=== PATIENT | female | born 1955 | race Caucasian/White ===

== ENCOUNTER → 2019-05-21 | Outpatient (CLI) | payer BC, SELFPAY | PROVIDERS: Family Provider Family Medicine; Visit Provider Internal Medicine Medical Oncology | DX: D50.8 Other iron deficiency anemias (principal) | CPT/HCPCS: 96365; J1439 ==

== ENCOUNTER 2019-05-28 13:21 | Outpatient (CLI) | payer BC, SELFPAY | END 2019-05-28 13:22 | disposition home or self-care (01) | LOC: ONCMED 13:26 | PROVIDERS: Family Provider Family Medicine; PCP Family Medicine; Visit Provider Internal Medicine Medical Oncology | DX: D50.9 Iron deficiency anemia, unspecified (principal) | CPT/HCPCS: 96365; J1439 ==

== ENCOUNTER 2019-06-29 11:48 | Outpatient (CLI) | payer BC, SELFPAY ==
[2019-06-29 12:38] LABS: Basophils % 0.3 %; Eosinophils # 0.3 10^3/uL (0.0-0.8); Eosinophils % 4.7 %; Hematocrit 41.5 % (37.0-47.0); Hemoglobin 13.3 g/dL (11.5-15.3); Lymphocytes # 1.1 10^3/uL (0.8-4.8); Lymphocytes % 15.6 %; Mean Corpuscular Volume 96.7 fL (81-99); Mean Platelet Volume 10.4 fL (7.4-10.4); Monocytes # 0.8 10^3/uL (0.2-0.9); Monocytes % 10.8 %; Neutrophils % 68.3 %; Nucleated Red Blood Cells % 0 %; Platelet Count 309 10^3/cmm (130-400); Red Blood Count 4.29 10^6/uL (4.1-5.3); White Blood Count 7.2 10^3/uL (4.0-10.0)
[2019-06-29 12:53] LABS: Ferritin 337 ng/mL (15-150); Iron 105 ug/dL (37-145); Percent Saturation 53.8 % (20-50); Total Iron Binding Capacity 195 mcg/dl; Unsaturated Iron Binding 90 ug/dL (112-347)
== END 2019-06-29 11:49 | disposition home or self-care (01) ==
LOC: ONCMED 11:48
PROVIDERS: Family Provider Family Medicine; PCP Family Medicine; Visit Provider Internal Medicine Medical Oncology
DX: D50.9 Iron deficiency anemia, unspecified (principal); I10 Essential (primary) hypertension; Z79.899 Other long term (current) drug therapy; Z87.11 Personal history of peptic ulcer disease
CPT/HCPCS: 36415; 82728; 83540; 83550; 85025; 99214

== ENCOUNTER 2019-12-23 14:28 | Outpatient (CLI) | payer BC, SELFPAY ==
--- NOTE | 2019-12-23 14:36 | MM_ITS ---
WS: [id number] BILATERAL DIGITAL SCREENING MAMMOGRAPHY WITH CAD CLINICAL INFORMATION: SCREENING HISTORY: Screening mammogram. No current complaints. COMPARISON: TECHNIQUE: Bilateral CC and MLO views. FINDINGS: Scattered fibroglandular densities bilaterally. No suspicious focal mass, asymmetry, calcifications, or architectural distortion. No evidence of malignancy. Lucent centered calcification. MM/[id number] IMPRESSION: BI-RADS: 2-Benign FOLLOW UP: 1 Year Follow-up Recommend return to annual screening mammography.
[2019-12-23 15:00] LABS: Basophils % 0.4 %; Eosinophils # 0.2 10^3/uL (0.0-0.8); Eosinophils % 3.2 %; Hematocrit 37.2 % (37.0-47.0); Hemoglobin 11.6 g/dL (11.5-15.3); Lymphocytes # 1.1 10^3/uL (0.8-4.8); Lymphocytes % 15.2 %; Mean Corpuscular HGB Conc 31.2 g/dL (30.0-36.0); Mean Corpuscular Hemoglobin 30.9 pg (28.0-34.0); Mean Corpuscular Volume 99.2 fL (81-99); Monocytes % 13.4 %; Neutrophils # 5.02 10^3/uL (1.8-7.7); Neutrophils % 67.4 %; Nucleated Red Blood Cells % 0 %; Platelet Count 353 10^3/cmm (130-400); Red Blood Count 3.75 10^6/uL (4.1-5.3); White Blood Count 7.5 10^3/uL (4.0-10.0)
[2019-12-23 15:20] LABS: Alanine Aminotransferase 19 U/L (0-33); Albumin Level 3.7 g/dL (3.5-5.2); Alkaline Phosphatase 59 IU/L (35-105); Blood Urea Nitrogen 10 mg/dL (8-23); Calcium 8.9 mg/dL (8.5-10.5); Carbon Dioxide 29 mmol/L (22-29); Chloride 103 mmol/L (98-107); Ferritin 34 ng/mL (15-150); Globulin 3.3 g/dL (1.3-4.6); Glomerular Filtration Rate 72.2 mL/min (90-130); Glucose 131 mg/dL (65-115); Iron 48 ug/dL (37-145); Osmolality Calculated 288 mOsm/kg (285-295); Sodium 140 mmol/L (136-145); Total Bilirubin 0.2 mg/dL (0.15-1.2)
[2019-12-23 20:39] LABS: Anion Gap 11.9 (5-19); Potassium 3.9 mmol/L (3.5-5.1)
[2019-12-23 20:40] LABS: Aspartate Amino Transferase 23 U/L (0-32); Percent Saturation 18.1 % (20-50); Total Iron Binding Capacity 264 mcg/dl; Unsaturated Iron Binding 216 ug/dL (112-347)
== END 2019-12-23 14:29 | disposition home or self-care (01) ==
LOC: RADSHAW 14:32
PROVIDERS: PCP Family Medicine; Visit Provider Nurse Practitioner
DX: Z12.31 Encounter for screening mammogram for malignant neoplasm of breast (principal); D50.8 Other iron deficiency anemias
CPT/HCPCS: 77067; 80053; 82728; 83540; 83550; 85025

== ENCOUNTER 2019-12-30 14:07 | Outpatient (CLI) | payer BC, SELFPAY ==
--- NOTE | 2019-12-30 19:45 | ONC FU_ITS ---
Dr. Husain Patient Follow-Up Note Patient: Marsha Husain Unit #: [id number]: 1955 Dicatated By: John Husain M.D.Date of Visit:Dec 30, 2019 Onc Med Follow-up/Prog Note Chief Complaint: Anemia. History of Present Illness: This is a 64 year-old woman with recurrent iron deficiency anemia. She had recurrent episodes of anemia dating back to at least 2001. She had required transfusion and she also required parenteral iron replacement, as she had poor tolerance for oral iron supplements. I had seen her initially in May 2017. She reported having a prior episode of a bleeding ulcer requiring cauterization, estimated to have been in 2013. There had otherwise been no documented source for GI blood loss. Her recent evaluation had included colonoscopy in December 2014, EGD in July 2015, and upper endoscopy in February 2016. Her previous treatment had included a course of parenteral iron replacement with 5 infusions of Venofer during November 2016. She had been given parenteral iron on 2016, and she had a transfusion of packed red blood cells on . She had been feeling pretty good generally since that treatment. With her initial evaluation here her hemoglobin was adequate at 12.4 g with her serum iron studies showing transferrin saturation just slightly low at 17.3% and her ferritin in the low-normal range at 56 ng/mL. Her IFOB was negative. Given those findings, I had opted to just monitor with observation/expectant management. However, as of July 2017 her hemoglobin had dropped to 10.5 g, and at that point I did opt to give her parenteral iron replacement with Injectafer. She had a good response, but during subsequent follow-up she required infusions of Injectafer again in April 2018, in August 2018, and in April 2019. Her other medical illnesses include hypertension and peptic ulcer disease. 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 She is a nonsmoker. INTERIM HISTORY: She was last seen here in June 2019. Her CBC at that time showed normal hemoglobin at 13.3 g. Her serum iron studies showed slightly high transferrin saturation at 53.8% and the ferritin was also a little elevated at 337 ng/mL. She continued on observation/expectant management. She is seen now for a follow-up visit. Subsequent to her visit in June she had developed significant joint pain, determined to be rheumatoid arthritis. She is now on treatment with methotrexate. She also was offered prednisone, but declined. She has been getting steroid injections about every 1 to 2 months. She is still having a lot of joint pain, mainly in her hands and feet. 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 Her ECOG score is 0. She has good appetite. She has not had fever. She does report having some hot flashes and sweating, but some of that she just attributes to the hot weather. She does not complain of shortness of breath, cough, or chest pain. She currently has no GI or complaints. She recently has had some headache. She occasionally has dizziness. She has no focal neurologic symptoms. Medications: Acetaminophen 2 Tablet (of 650 mg) Oral q 8 hours PRN, Cephalexin 1 (500 mg) Capsule Oral daily, Folic Acid 1 Tablet Oral daily, Losartan Potassium-HCTZ 1 (50-12.5 mg) Tablet Oral daily, Methotrexate Sodium 4 Tablet Oral q 7 days, Multivitamin 1 Tablet Oral daily, Omeprazole 1 (20 mg) Capsule Delayed Release Oral daily, Vitamin C 1 (1000 mg) Tablet Oral daily Allergies: No Known Allergies. Review of Systems: Constitutional - Her energy has been okay. She has normal activity without restrictions. Her appetite is good and weight is up a few pounds from last visit. No fever or night sweats. She has hot flashes. ECOG score is 0, ENMT - No sinus congestion/drainage. No mouth sores. No sore throat or difficulty swallowing, Hematologic/Lymphatic - No abnormal bruising or bleeding, Respiratory - No shortness of breath. No cough. No pleuritic pain or hemoptysis, Cardiovascular - No angina pain. No palpitations, Gastrointestinal - No nausea or vomiting. No heartburn or acid reflux. No diarrhea or constipation. No blood in the stool or black stools, Genitourinary (F) - No dysuria or hematuria. No urinary frequency. No urgency or incontinence, Musculoskeletal - She has generalized joint pain from rheumatoid arthritis, Integumentary - She has chronic swelling in her right leg following an episode of celluliitis, Neurologic - She recently had some headache. She occasionally has dizziness. No numbness or tingling. No other focal neurologic symptoms, Psychiatric - No anxiety or depression. No insomnia. Vital Signs: Performed on Dec 30, 2019 14:19 Height - 66.00 in Weight - 217.0 lbs (HIGH) BSA - 2.07 sq.m BMI - 35.02 (HIGH) Temperature - 97.6 F (LOW) Pulse - 60 /min Respiration - 20 /min BP - 162/84 mm(hg) (HIGH) O2 Sat - 98 % Pain - 0 Physical Examination: Constitutional - She looks pretty good generally, Eyes - Sclerae nonicteric. Conjunctivae clear, ENMT - No lesions noted in the oral cavity, Hematologic/Lymphatic - No cervical, clavicular, or axillary adenopathy, Respiratory - Lungs are clear with good air movement bilaterally, Cardiovascular - Heart rhythm is regular. There is a II/ systolic murmur. There is no gallop or rub noted, Abdomen - Soft. Liver and spleen are not enlarged. There is no abdominal mass or ascites noted and there is no inguinal adenopathy, Extremities - There is mild chronic swelling of the right leg. There is an area of mild erythema, Neurologic - No focal neurologic deficits noted. Lab/Imaging: Her CBC shows hemoglobin 11.6 g, white blood cell count 7500, and platelet count 353,000. Comprehensive metabolic profile is unremarkable. Her serum iron studies show transferrin saturation low at 18% with ferritin 34 ng/mL. Impression: 1. Patient with recurrent episodes of iron deficiency anemia. These have responded to parenteral iron replacement, but just temporarily. A specific cause has not been determined. 2. She has a prior history of bleeding ulcer, but her most recent GI evaluation showed no documented source of GI blood loss. Her other medical illnesses include: 3. Hypertension. 4. 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 On her follow-up laboratory studies in July 2017 she was mildly anemic again, and her transferrin saturation and ferritin were consistent with iron deficiency. She was given parenteral iron replacement with a single infusion of Injectafer. She had a good clinical response. During subsequent follow-up she required further parenteral iron replacement with Injectafer in April 2018, in August 2018, and in April 2019. On all occasions she has had evidence of response. However, she has now become mildly anemic again with transferrin saturation and ferritin consistent with iron deficiency. Since her visit in June 2019 she also has been diagnosed with rheumatoid arthritis, for which she currently is on treatment with methotrexate together with steroid injections every 1 to 2 months. Plan: She will be receive parenteral iron replacement with Injectafer 750 mg by IV infusion, subject to verification of insurance coverage. I will then monitor blood counts and serum iron studies every 3 months. She will be given further parenteral iron replacement as indicated. In the meantime, she will continue her regular follow-up with Dr. Reeves. Signed By: John Husain M.D. <<Signature on File>>
== END 2019-12-30 14:08 | disposition home or self-care (01) ==
LOC: ONCMED 14:09
PROVIDERS: PCP Family Medicine; Visit Provider Internal Medicine Medical Oncology
DX: D50.9 Iron deficiency anemia, unspecified (principal); I10 Essential (primary) hypertension; L08.9 Local infection of the skin and subcutaneous tissue, unspecified; Z79.2 Long term (current) use of antibiotics
CPT/HCPCS: 99214

== ENCOUNTER 2019-12-31 13:05 | Outpatient (CLI) | payer BC, SELFPAY ==
[2019-12-31] MEDS: ferric carboxy (IVPB) 750 MG in sodium chloride 0.9% (100 ml) 100 ML 460 MG IV (14:26)
== END 2019-12-31 13:06 | disposition home or self-care (01) ==
LOC: ONCMED 13:08
PROVIDERS: PCP Family Medicine; Visit Provider Internal Medicine Medical Oncology
DX: D50.9 Iron deficiency anemia, unspecified (principal)
CPT/HCPCS: 96365; J1439

== ENCOUNTER 2020-03-08 13:10 | Outpatient (CLI) | payer BC, SELFPAY ==
[2020-03-08 13:47] LABS: Basophils % 0.3 %; Eosinophils # 0.2 10^3/uL (0.0-0.8); Eosinophils % 2.8 %; Hematocrit 38.2 % (37.0-47.0); Hemoglobin 12.2 g/dL (11.5-15.3); Lymphocytes # 0.9 10^3/uL (0.8-4.8); Lymphocytes % 14.2 %; Mean Corpuscular HGB Conc 31.9 g/dL (30.0-36.0); Mean Corpuscular Hemoglobin 33.2 pg (28.0-34.0); Mean Corpuscular Volume 103.8 fL (81-99); Monocytes # 0.7 10^3/uL (0.2-0.9); Monocytes % 12.1 %; Neutrophils # 4.28 10^3/uL (1.8-7.7); Neutrophils % 70.1 %; Nucleated Red Blood Cells % 0 %; Platelet Count 339 10^3/cmm (130-400); Red Blood Count 3.68 10^6/uL (4.1-5.3); Red Cell Distribution Width 13.7 % (12.1-15.1); White Blood Count 6.1 10^3/uL (4.0-10.0)
[2020-03-08 14:11] LABS: Alanine Aminotransferase 24 U/L (0-33); Alkaline Phosphatase 64 IU/L (35-105); Anion Gap 11.4 (5-19); Aspartate Amino Transferase 21 U/L (0-32); Blood Urea Nitrogen 14 mg/dL (8-23); Calcium 9.1 mg/dL (8.5-10.5); Carbon Dioxide 29 mmol/L (22-29); Chloride 101 mmol/L (98-107); Ferritin 68 ng/mL (15-150); Globulin 2.8 g/dL (1.3-4.6); Glomerular Filtration Rate 100.6 mL/min (90-130); Glucose 145 mg/dL (65-115); Iron 39 ug/dL (37-145); Osmolality Calculated 289 mOsm/kg (285-295); Percent Saturation 15.7 % (20-50); Potassium 3.4 mmol/L (3.5-5.1); Sodium 138 mmol/L (136-145); Total Bilirubin 0.2 mg/dL (0.15-1.2); Total Iron Binding Capacity 247 mcg/dl; Total Protein 6.8 g/dL (6.6-8.7); Unsaturated Iron Binding 208 ug/dL (112-347)
== END 2020-03-08 13:11 | disposition home or self-care (01) ==
LOC: ONCMED 13:12
PROVIDERS: Nurse Practitioner; PCP Family Medicine; Visit Provider Internal Medicine Medical Oncology
DX: D50.8 Other iron deficiency anemias (principal)
CPT/HCPCS: 36415; 80053; 82728; 83540; 83550; 85025

== ENCOUNTER 2020-04-04 12:00 | Outpatient (CLI) | payer MEDICARE, BC, SELFPAY ==
[2020-04-04 12:49] LABS: Basophils % 0.8 %; Eosinophils # 0.5 10^3/uL (0.0-0.8); Eosinophils % 9.4 %; Hemoglobin 9.2 g/dL (11.5-15.3); Lymphocytes # 0.9 10^3/uL (0.8-4.8); Lymphocytes % 17.6 %; Mean Corpuscular HGB Conc 30.7 g/dL (30.0-36.0); Mean Corpuscular Hemoglobin 32.2 pg (28.0-34.0); Mean Corpuscular Volume 104.9 fL (81-99); Monocytes # 0.7 10^3/uL (0.2-0.9); Monocytes % 12.6 %; Neutrophils % 59.2 %; Nucleated Red Blood Cells % 0 %; Platelet Count 423 10^3/cmm (130-400); Red Blood Count 2.86 10^6/uL (4.1-5.3); Red Cell Distribution Width 13.3 % (12.1-15.1); White Blood Count 5.2 10^3/uL (4.0-10.0)
[2020-04-04 13:49] LABS: Ferritin 25 ng/mL (15-150); Iron 20 ug/dL (37-145); Percent Saturation 7.4 % (20-50); Total Iron Binding Capacity 269 mcg/dl; Unsaturated Iron Binding 249 ug/dL (112-347)
== END 2020-04-04 12:01 | disposition home or self-care (01) ==
PROVIDERS: PCP Family Medicine; Visit Provider Internal Medicine Medical Oncology
DX: D50.9 Iron deficiency anemia, unspecified (principal)
CPT/HCPCS: 36415; 82728; 83540; 83550; 85025

== ENCOUNTER 2020-04-19 12:25 | Outpatient (CLI) | payer MEDICARE, BC, SELFPAY ==
[2020-04-19 13:19] LABS: Basophils % 0.2 %; Eosinophils # 0.6 10^3/uL (0.0-0.8); Eosinophils % 5.7 %; Hematocrit 29.7 % (37.0-47.0); Hemoglobin 8.9 g/dL (11.5-15.3); Lymphocytes # 0.9 10^3/uL (0.8-4.8); Lymphocytes % 8.8 %; Mean Corpuscular Hemoglobin 30.9 pg (28.0-34.0); Mean Corpuscular Volume 103.1 fL (81-99); Mean Platelet Volume 9.9 fL (7.4-10.4); Monocytes % 10.3 %; Neutrophils # 7.52 10^3/uL (1.8-7.7); Neutrophils % 74.7 %; Nucleated Red Blood Cells % 0 %; Platelet Count 479 10^3/cmm (130-400); Red Blood Count 2.88 10^6/uL (4.1-5.3); Red Cell Distribution Width 14.4 % (12.1-15.1); White Blood Count 10.1 10^3/uL (4.0-10.0)
[2020-04-19 13:37] LABS: Alanine Aminotransferase 15 U/L (0-33); Albumin Level 3.7 g/dL (3.5-5.2); Alkaline Phosphatase 66 IU/L (35-105); Anion Gap 10.6 (5-19); Aspartate Amino Transferase 15 U/L (0-32); Blood Urea Nitrogen 14 mg/dL (8-23); Calcium 9.1 mg/dL (8.5-10.5); Carbon Dioxide 31 mmol/L (22-29); Chloride 103 mmol/L (98-107); Ferritin 9 ng/mL (15-150); Globulin 2.5 g/dL (1.3-4.6); Glomerular Filtration Rate 100.3 mL/min (90-130); Glucose 120 mg/dL (65-115); Iron 16 ug/dL (37-145); Osmolality Calculated 294 mOsm/kg (285-295); Percent Saturation 4.9 % (20-50); Potassium 3.6 mmol/L (3.5-5.1); Sodium 141 mmol/L (136-145); Total Bilirubin 0.2 mg/dL (0.15-1.2); Total Iron Binding Capacity 322 mcg/dl; Total Protein 6.2 g/dL (6.6-8.7); Unsaturated Iron Binding 306 ug/dL (112-347)
[2020-04-19] MEDS: ferric carboxy (IVPB) 750 MG in sodium chloride 0.9% (100 ml) 100 ML 345 MG IV (15:15)
== END 2020-04-19 12:26 | disposition home or self-care (01) ==
LOC: ONCMED 12:27
PROVIDERS: PCP Family Medicine; Visit Provider Internal Medicine Medical Oncology
DX: D50.9 Iron deficiency anemia, unspecified (principal)
CPT/HCPCS: 36415; 80053; 82728; 83540; 83550; 85025; 96365; J1439

== ENCOUNTER 2020-04-26 06:15 | Outpatient (CLI) | payer MEDICARE, BC, SELFPAY ==
[2020-04-26] MEDS: ferric carboxy (IVPB) 750 MG in sodium chloride 0.9% (100 ml) 100 ML 345 MG IV (12:21)
== END 2020-04-26 06:16 | disposition home or self-care (01) ==
LOC: ONCMED 06:17
PROVIDERS: PCP Family Medicine; Visit Provider Internal Medicine Medical Oncology
DX: D50.8 Other iron deficiency anemias (principal)
CPT/HCPCS: 96365; J1439

== ENCOUNTER 2020-06-01 09:32 | Outpatient (CLI) | payer MEDICARE, BC, SELFPAY ==
[2020-06-01 10:06] LABS: Basophils % 0.5 %; Eosinophils # 0.6 10^3/uL (0.0-0.8); Eosinophils % 8.9 %; Hematocrit 36.2 % (37.0-47.0); Hemoglobin 10.9 g/dL (11.5-15.3); Lymphocytes # 0.8 10^3/uL (0.8-4.8); Lymphocytes % 11.8 %; Mean Corpuscular HGB Conc 30.1 g/dL (30.0-36.0); Mean Corpuscular Hemoglobin 31.3 pg (28.0-34.0); Mean Platelet Volume 9.9 fL (7.4-10.4); Monocytes # 0.9 10^3/uL (0.2-0.9); Monocytes % 13.8 %; Neutrophils # 4.21 10^3/uL (1.8-7.7); Neutrophils % 64.8 %; Nucleated Red Blood Cells % 0 %; Platelet Count 476 10^3/cmm (130-400); Red Blood Count 3.48 10^6/uL (4.1-5.3); Red Cell Distribution Width 14.6 % (12.1-15.1); White Blood Count 6.5 10^3/uL (4.0-10.0)
[2020-06-01 10:28] LABS: Alanine Aminotransferase 12 U/L (0-33); Albumin Level 3.9 g/dL (3.5-5.2); Alkaline Phosphatase 76 IU/L (35-105); Anion Gap 11.9 (5-19); Aspartate Amino Transferase 14 U/L (0-32); Blood Urea Nitrogen 9 mg/dL (8-23); Calcium 9.6 mg/dL (8.5-10.5); Carbon Dioxide 32 mmol/L (22-29); Chloride 101 mmol/L (98-107); Ferritin 81 ng/mL (15-150); Glucose 103 mg/dL (65-115); Iron 29 ug/dL (37-145); Osmolality Calculated 291 mOsm/kg (285-295); Percent Saturation 11.5 % (20-50); Potassium 3.9 mmol/L (3.5-5.1); Sodium 141 mmol/L (136-145); Total Bilirubin 0.2 mg/dL (0.15-1.2); Total Iron Binding Capacity 251 mcg/dl; Total Protein 6.9 g/dL (6.6-8.7); Unsaturated Iron Binding 222 ug/dL (112-347)
[2020-06-01] MEDS: ferric carboxy (IVPB) 750 MG in sodium chloride 0.9% (100 ml) 100 ML 460 MG IV (11:20)
[2020-06-01 12:59] LABS: Vitamin B12 757 pg/mL (232-1245)
--- NOTE | 2020-06-04 17:44 | ONC FU_ITS ---
Dr. Husain Patient Follow-Up Note Patient: Marsha Husain Unit #: [id number]: 1955 Dicatated By: John Husain M.D.Date of Visit:Jun 01, 2020 Onc Med Follow-up/Prog Note Chief Complaint: Anemia. History of Present Illness: This is a 65 year-old woman with recurrent iron deficiency anemia. She had recurrent episodes of anemia dating back to at least 2001. She had required transfusion and she also required parenteral iron replacement, as she had poor tolerance for oral iron supplements. I had seen her initially in May 2017. She reported having a prior episode of a bleeding ulcer requiring cauterization, estimated to have been in 2013. There had otherwise been no documented source for GI blood loss. Her recent evaluation had included colonoscopy in December 2014, EGD in July 2015, and upper endoscopy in February 2016. Her previous treatment had included a course of parenteral iron replacement with 5 infusions of Venofer during November 2016. She had been given parenteral iron on 2016, and she had a transfusion of packed red blood cells on . She had been feeling pretty good generally since that treatment. With her initial evaluation here her hemoglobin was adequate at 12.4 g with her serum iron studies showing transferrin saturation just slightly low at 17.3% and her ferritin in the low-normal range at 56 ng/mL. Her IFOB was negative. Given those findings, I had opted to just monitor with observation/expectant management. However, as of July 2017 her hemoglobin had dropped to 10.5 g, and at that point I did opt to give her parenteral iron replacement with Injectafer. She had a good response, but during subsequent follow-up she required infusions of Injectafer again in April 2018, in August 2018, and in April 2019. She was seen again in June 2019. Her CBC at that time showed normal hemoglobin at 13.3 g. Her serum iron studies showed slightly high transferrin saturation at 53.8% and the ferritin was also a little elevated at 337 ng/mL. She continued on observation/expectant management. Subsequent to that visit in June she had developed significant joint pain, determined to be rheumatoid arthritis. She was started on treatment with methotrexate. Her other medical illnesses include hypertension and peptic ulcer disease. 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 She is a nonsmoker. INTERIM HISTORY: March 2020 her hemoglobin had decreased to 8.9 g with transferrin saturation down to 4.9% and ferritin low at 9 ng/mL. With those findings she was given additional parenteral iron replacement with 2 infusions of Injectafer. She is seen for a follow-up visit. She says she definitely feels better following the parenteral iron infusions in March. She still has some dizziness, but her activity tolerance is much better and her activity is pretty much back to normal. Her appetite has been okay. She does not have fever or night sweats. She has a little bit of cough. She does not complain of shortness of breath or chest pain. She has no GI or complaints. She has joint pain with the rheumatoid arthritis, but it has improved somewhat on the methotrexate. She has no focal neurologic symptoms. Medications: Acetaminophen 2 Tablet (of 650 mg) Oral q 8 hours PRN, Cephalexin 1 (500 mg) Capsule Oral daily, Folic Acid 1 Tablet Oral daily, Losartan Potassium-HCTZ 1 (50-12.5 mg) Tablet Oral daily, Methotrexate Sodium 4 Tablet Oral q 7 days, Multivitamin 1 Tablet Oral daily, Omeprazole 1 (20 mg) Capsule Delayed Release Oral daily, Vitamin C 1 (1000 mg) Tablet Oral daily Allergies: No Known Allergies. Vital Signs: Performed on Jun 01, 2020 10:43 Height - 66.00 in Weight - 219.8 lbs (HIGH) BSA - 2.08 sq.m BMI - 35.48 (HIGH) Temperature - 97 F (LOW) Pulse - 75 /min Respiration - 17 /min BP - 199/88 mm(hg) (HIGH) O2 Sat - 97 % Pain - 0 Physical Examination: Constitutional - She looks pretty good generally, Eyes - Sclerae nonicteric. Conjunctivae clear, ENMT - No lesions noted in the oral cavity, Hematologic/Lymphatic - No cervical, clavicular, or axillary adenopathy, Respiratory - Lungs are clear with good air movement bilaterally, Cardiovascular - Heart rhythm is regular. There is a II/ systolic murmur. There is no gallop or rub noted, Abdomen - Soft. Liver and spleen are not enlarged. There is no abdominal mass or ascites noted and there is no inguinal adenopathy, Extremities - There is mild swelling of the right leg, which is chronic, Neurologic - No focal neurologic deficits noted. Lab/Imaging: Test performed on Jun 01, 2020 09:50 Ferritin 81 ng/mL Iron 29 mcg/dL Sodium 141 mmol/L Iron Binding Capacity (TIBC) 251 mcg/dl Potassium 3.9 mmol/L % Iron Saturation 11.5 % Chloride 101 mmol/L CO2 32 mmol/L UIBC 222 mcg/dL Anion Gap 11.9 BUN 9 mg/dL Creatinine 0.7 mg/dL Cr Clearance (Est) 126.11 mL/min eGFR 84.0 mL/min Glucose 103 mg/dL Osmolality - Calculated 291 mOsm/kg Calcium 9.6 mg/dL Protein, Total 6.9 g/dL Albumin 3.9 g/dL Globulin 3.0 g/dL Bilirubin, Total 0.2 mg/dL ALT (SGPT) 12 U/L AST (SGOT) 14 U/L Alkaline Phosphatase 76 IU/L WBC 6.5 10 3/uL RBC 3.48 10 6/uL HGB 10.9 g/dL HCT 36.2 % MCV 104.0 fL MCH 31.3 pg MCHC 30.1 g/dL RDW 14.6 % Platelet Count 476 10 3/cmm MPV 9.9 fL Neutrophils 4.21 10 3/uL Lymphocytes 0.8 10 3/uL Monocytes 0.9 10 3/uL Eosinophils 0.6 10 3/uL Basophils 0.0 10 3/uL Neutrophil % 64.8 % Lymphocyte % 11.8 % Monocyte % 13.8 % Eosinophil % 8.9 % Basophils % 0.5 % NRBC % 0 % Test performed on Jun 01, 2020 03:20 Vitamin B12 757 pg/mL Historic Problem List: 1. Recurring episodes of iron deficiency anemia. A specific cause has not been determined, but the anemia has been responsive to parenteral iron replacement. 2. She has a prior history of bleeding ulcer, but her most recent GI evaluation showed no documented source of GI blood loss. 3. She developed significant joint pain, determined to be due to rheumatoid arthritis, for which she is on treatment with methotrexate. 4. Hypertension. 5. 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 Problems Addressed with this Encounter and Plan: Recurrent episodes of iron deficiency anemia which have been responsive to parenteral iron replacement. She was again given 2 infusions of Injectafer in March 2020 with her hemoglobin decreased to 8.9 g with transferrin saturation 4% and with serum ferritin low at 11 ng/mL. She has had a good response, but she is still mildly anemic and her transferrin saturation is still consistent with iron deficiency. As such, she will be given 1 additional infusion of Injectafer today. She will require close monitoring of her blood counts and serum iron studies. Repeat laboratory studies will be scheduled in 1 month and again in 3 months. I will see her again in 6 months, or sooner as needed. Signed By: John Husain M.D. <<Signature on File>>
== END 2020-06-01 09:33 | disposition home or self-care (01) ==
LOC: ONCMED 09:35
PROVIDERS: PCP Family Medicine; Visit Provider Internal Medicine Medical Oncology
DX: D50.9 Iron deficiency anemia, unspecified (principal); M06.9 Rheumatoid arthritis, unspecified; I10 Essential (primary) hypertension; M79.604 Pain in right leg; L00 Staphylococcal scalded skin syndrome; Z79.2 Long term (current) use of antibiotics
CPT/HCPCS: 80053; 82607; 82728; 83540; 83550; 85025; 96365; 99214; J1439

== ENCOUNTER 2020-07-05 14:10 | Outpatient (CLI) | payer MEDICARE, BC, SELFPAY ==
[2020-07-05 15:02] LABS: Basophils % 0.4 %; Eosinophils # 0.4 10^3/uL (0.0-0.8); Eosinophils % 7.1 %; Hematocrit 33.7 % (37.0-47.0); Hemoglobin 10.6 g/dL (11.5-15.3); Lymphocytes # 0.9 10^3/uL (0.8-4.8); Lymphocytes % 17.7 %; Mean Corpuscular HGB Conc 31.5 g/dL (30.0-36.0); Mean Corpuscular Hemoglobin 31.1 pg (28.0-34.0); Mean Corpuscular Volume 98.8 fL (81-99); Mean Platelet Volume 10.4 fL (7.4-10.4); Monocytes # 0.7 10^3/uL (0.2-0.9); Monocytes % 14.1 %; Neutrophils # 2.99 10^3/uL (1.8-7.7); Neutrophils % 60.3 %; Nucleated Red Blood Cells % 0 %; Platelet Count 316 10^3/cmm (130-400); Red Blood Count 3.41 10^6/uL (4.1-5.3); Red Cell Distribution Width 14.1 % (12.1-15.1)
[2020-07-05 15:49] LABS: Ferritin 172 ng/mL (15-150); Iron 39 ug/dL (37-145); Percent Saturation 18.8 % (20-50); Total Iron Binding Capacity 207 mcg/dl; Unsaturated Iron Binding 168 ug/dL (112-347)
== END 2020-07-05 14:11 | disposition home or self-care (01) ==
LOC: ONCMED 14:17
PROVIDERS: PCP Family Medicine; Visit Provider Internal Medicine Medical Oncology
DX: D50.9 Iron deficiency anemia, unspecified (principal)
CPT/HCPCS: 36415; 82728; 83540; 83550; 85025

== ENCOUNTER 2020-08-17 13:25 | Outpatient (CLI) | payer MEDICARE, BC, SELFPAY ==
[2020-08-17 14:57] LABS: Basophils % 0.4 %; Eosinophils # 0.8 10^3/uL (0.0-0.8); Eosinophils % 8.5 %; Hematocrit 38.4 % (37.0-47.0); Hemoglobin 11.9 g/dL (11.5-15.3); Lymphocytes # 0.7 10^3/uL (0.8-4.8); Lymphocytes % 7.2 %; Mean Corpuscular Volume 93.7 fL (81-99); Mean Platelet Volume 10.4 fL (7.4-10.4); Monocytes # 1.3 10^3/uL (0.2-0.9); Monocytes % 14.2 %; Neutrophils # 6.43 10^3/uL (1.8-7.7); Neutrophils % 69.5 %; Nucleated Red Blood Cells % 0 %; Platelet Count 395 10^3/cmm (130-400); Red Cell Distribution Width 15.1 % (12.1-15.1); White Blood Count 9.3 10^3/uL (4.0-10.0)
[2020-08-17 15:42] LABS: Ferritin 101 ng/mL (15-150); Iron 21 ug/dL (37-145); Percent Saturation 9.2 % (20-50); Total Iron Binding Capacity 227 mcg/dl; Unsaturated Iron Binding 206 ug/dL (112-347)
== END 2020-08-17 13:26 | disposition home or self-care (01) ==
LOC: ONCMED 13:28
PROVIDERS: PCP Family Medicine; Visit Provider Internal Medicine Medical Oncology
DX: D64.9 Anemia, unspecified (principal)
CPT/HCPCS: 36415; 82728; 83540; 83550; 85025

== ENCOUNTER 2020-08-18 08:19 | Outpatient (CLI) | payer MEDICARE, BC, SELFPAY ==
[2020-08-18] MEDS: ferric carboxy (IVPB) 750 MG in sodium chloride 0.9% (100 ml) 100 ML 345 MG IV (13:50)
[2020-08-18] MEDS: sodium chloride 0.9% (100 ml) 100 ML 400 ML (13:50)
== END 2020-08-18 08:20 | disposition home or self-care (01) ==
LOC: ONCMED 08:21
PROVIDERS: PCP Family Medicine; Visit Provider Internal Medicine Medical Oncology
DX: D50.8 Other iron deficiency anemias (principal)
CPT/HCPCS: 96365; J1439

== ENCOUNTER 2020-08-24 08:22 | Outpatient (CLI) | payer MEDICARE, BC, SELFPAY ==
[2020-08-24] MEDS: ferric carboxy (IVPB) 750 MG in sodium chloride 0.9% (100 ml) 100 ML 460 MG IV (15:27)
== END 2020-08-24 08:23 | disposition home or self-care (01) ==
LOC: ONCMED 08:25
PROVIDERS: PCP Family Medicine; Visit Provider Internal Medicine Medical Oncology
DX: D50.9 Iron deficiency anemia, unspecified (principal)
CPT/HCPCS: 96365; J1439

== ENCOUNTER 2020-09-26 13:43 | Outpatient (CLI) | payer MEDICARE, BC, SELFPAY ==
[2020-09-26 14:24] LABS: Basophils % 0.5 %; Eosinophils # 0.4 10^3/uL (0.0-0.8); Eosinophils % 6.4 %; Hematocrit 35.9 % (37.0-47.0); Hemoglobin 11.1 g/dL (11.5-15.3); Lymphocytes # 0.8 10^3/uL (0.8-4.8); Lymphocytes % 13.9 %; Mean Corpuscular HGB Conc 30.9 g/dL (30.0-36.0); Mean Corpuscular Hemoglobin 31.9 pg (28.0-34.0); Mean Corpuscular Volume 103.2 fL (81-99); Mean Platelet Volume 10.3 fL (7.4-10.4); Monocytes % 18.5 %; Neutrophils # 3.28 10^3/uL (1.8-7.7); Nucleated Red Blood Cells % 0 %; Platelet Count 461 10^3/cmm (130-400); Red Blood Count 3.48 10^6/uL (4.1-5.3); Red Cell Distribution Width 18.8 % (12.1-15.1); White Blood Count 5.5 10^3/uL (4.0-10.0)
[2020-09-26 14:54] LABS: Ferritin 366 ng/mL (15-150); Iron 44 ug/dL (37-145); Percent Saturation 20.4 % (20-50); Total Iron Binding Capacity 215 mcg/dl; Unsaturated Iron Binding 171 ug/dL (112-347)
--- NOTE | 2020-10-03 07:26 | ONC FU_ITS ---
Dr. Husain Patient Follow-Up Note Patient: Marsha Husain Unit #: [id number]: 1955 Dicatated By: John Husain M.D.Date of Visit:September 26, 2020 Onc Med Follow-up/Prog Note Chief Complaint: Anemia. History of Present Illness: This is a 65 year-old woman with recurrent iron deficiency anemia. She had recurrent episodes of anemia dating back to at least 2001. She had required transfusion and she also required parenteral iron replacement, as she had poor tolerance for oral iron supplements. I had seen her initially in May 2017. She reported having a prior episode of a bleeding ulcer requiring cauterization, estimated to have been in 2013. There had otherwise been no documented source for GI blood loss. Her recent evaluation had included colonoscopy in December 2014, EGD in July 2015, and upper endoscopy in February 2016. Her previous treatment had included a course of parenteral iron replacement with 5 infusions of Venofer during November 2016. She had been given parenteral iron on 2016, and she had a transfusion of packed red blood cells on . She had been feeling pretty good generally since that treatment. With her initial evaluation here her hemoglobin was adequate at 12.4 g with her serum iron studies showing transferrin saturation just slightly low at 17.3% and her ferritin in the low-normal range at 56 ng/mL. Her IFOB was negative. Given those findings, I had opted to just monitor with observation/expectant management. However, as of July 2017 her hemoglobin had dropped to 10.5 g, and at that point I did opt to give her parenteral iron replacement with Injectafer. She had a good response, but during subsequent follow-up she required infusions of Injectafer again in April 2018, in August 2018, and in April 2019. She was seen again in June 2019. Her CBC at that time showed normal hemoglobin at 13.3 g. Her serum iron studies showed slightly high transferrin saturation at 53.8% and the ferritin was also a little elevated at 337 ng/mL. She continued on observation/expectant management. Subsequent to that visit in June she had developed significant joint pain, determined to be rheumatoid arthritis. She was started on treatment with methotrexate. Her other medical illnesses include hypertension and peptic ulcer disease. 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 She is a nonsmoker. INTERIM HISTORY: In March 2020 her hemoglobin had decreased to 8.9 g with transferrin saturation down to 4.9% and ferritin low at 9 ng/mL. With those findings she was given additional parenteral iron replacement with Injectafer. She had a good response. However, as of July 2020 she remained mildly anemic with transferrin saturation low at 9%, and at that point I did opt to give her 2 additional infusions of Injectafer. She is seen for a follow-up visit. She indicates that 3 weeks ago she spent 6 days in the hospital with bronchial pneumonia. She says she was very very weak. Since then she has been getting better gradually, but she still gets tired. She is working, though. Her ECOG score is 1. Her appetite is okay now. She does not have fever or night sweats. She does not complain of cough. She still has some shortness of breath with activity. She has very little chest pain. She has no GI or complaints. She is on methotrexate/folic acid for rheumatoid arthritis. Her joints are still sometimes sore. She has had some headaches and she also has dysequilibrium. She has no numbness/paresthesia or other focal neurologic symptoms. Medications: Acetaminophen 2 Tablet (of 650 mg) Oral q 8 hours PRN, Cephalexin 1 (500 mg) Capsule Oral daily, Folic Acid 1 Tablet Oral daily, Losartan Potassium-HCTZ 1 (50-12.5 mg) Tablet Oral daily, Methotrexate Sodium 4 Tablet Oral q 7 days, Multivitamin 1 Tablet Oral daily, Omeprazole 1 (20 mg) Capsule Delayed Release Oral daily, Vitamin C 1 (1000 mg) Tablet Oral daily Allergies: No Known Allergies. Vital Signs: Performed on September 26, 2020 15:37 Height - 66.00 in Weight - 217.8 lbs (LOW) BSA - 2.07 sq.m BMI - 35.15 (HIGH) Temperature - 97.2 F (LOW) Pulse - 80 /min Respiration - 18 /min BP - 156/72 mm(hg) (HIGH) O2 Sat - 94 % (LOW) Pain - 0 Fatigue - 5 Physical Examination: Constitutional - She looks pretty good generally, Eyes - Sclerae nonicteric. Conjunctivae clear, ENMT - No lesions noted in the oral cavity, Hematologic/Lymphatic - No cervical, clavicular, or axillary adenopathy, Respiratory - Lungs are clear with good air movement bilaterally, Cardiovascular - Heart rhythm is regular. There is a II/ systolic murmur. There is no gallop or rub noted, Abdomen - Soft. Liver and spleen are not enlarged. There is no abdominal mass or ascites noted and there is no inguinal adenopathy, Extremities - There is mild swelling and erythemia of the right leg. There are scattered purpuric lesions on the arms, Neurologic - No focal neurologic deficits noted. Lab/Imaging: Test performed on September 26, 2020 14:00 Ferritin 366 ng/mL Iron 44 mcg/dL Iron Binding Capacity (TIBC) 215 mcg/dl % Iron Saturation 20.4 % UIBC 171 mcg/dL WBC 5.5 10 3/uL RBC 3.48 10 6/uL HGB 11.1 g/dL HCT 35.9 % MCV 103.2 fL MCH 31.9 pg MCHC 30.9 g/dL RDW 18.8 % Platelet Count 461 10 3/cmm MPV 10.3 fL Neutrophils 3.28 10 3/uL Lymphocytes 0.8 10 3/uL Monocytes 1.0 10 3/uL Eosinophils 0.4 10 3/uL Basophils 0.0 10 3/uL Neutrophil % 60.0 % Lymphocyte % 13.9 % Monocyte % 18.5 % Eosinophil % 6.4 % Basophils % 0.5 % NRBC % 0 % Problem List: 1. Iron deficiency anemia. A specific cause has not been determined, but the anemia has been responsive to parenteral iron replacement. 2. She has a prior history of bleeding ulcer, but her most recent GI evaluation showed no documented source of GI blood loss. 3. She developed significant joint pain, determined to be due to rheumatoid arthritis, for which she is on treatment with methotrexate. 4. Hypertension. 5. 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 Problems Addressed with this Encounter and Plan: Patient with recurrent episodes of iron deficiency anemia which have been responsive to parenteral iron replacement. She was again given 2 infusions of Injectafer in March 2020 with her hemoglobin decreased to 8.9 g with transferrin saturation 4% and with serum ferritin low at 11 ng/mL. She had a good response, but she remained mildly anemic. As of July 2020 her serum iron studies show transferrin saturation back down to 9%, and at that point she did receive 2 additional infusions of Injectafer. Her current CBC continues to show mild anemia though with her transferrin saturation up to 20% and with ferritin now up to 366 ng/mL. As such, it does appear that there are additional contributing factors to her anemia. Likely possibilities would include her recent acute illness, her underlying rheumatoid arthritis, or the methotrexate therapy. At least for now, she will just be followed expectantly. Her blood counts will be monitored monthly. I will see her again in 3 months, or sooner as needed. Signed By: John Husain M.D. <<Signature on File>>
== END 2020-09-26 13:44 | disposition home or self-care (01) ==
LOC: ONCMED 13:45
PROVIDERS: PCP Family Medicine; Visit Provider Internal Medicine Medical Oncology
DX: D50.9 Iron deficiency anemia, unspecified (principal); M06.9 Rheumatoid arthritis, unspecified; I10 Essential (primary) hypertension; Z79.2 Long term (current) use of antibiotics; Z79.52 Long term (current) use of systemic steroids; Z79.899 Other long term (current) drug therapy
CPT/HCPCS: 36415; 82728; 83540; 83550; 85025; 99214

== ENCOUNTER 2020-11-09 14:36 | Outpatient (CLI) | payer MEDICARE, BC, SELFPAY ==
[2020-11-09] MEDS: ferric carboxy (IVPB) 750 MG in sodium chloride 0.9% (100 ml) 100 ML 460 MG IV (15:15)
== END 2020-11-09 14:37 | disposition home or self-care (01) ==
LOC: ONCMED 14:41
PROVIDERS: PCP Family Medicine; Visit Provider Internal Medicine Medical Oncology
DX: D50.9 Iron deficiency anemia, unspecified (principal)
CPT/HCPCS: 96365; J1439

== ENCOUNTER 2020-11-16 06:55 | Outpatient (CLI) | payer MEDICARE, BC, SELFPAY ==
[2020-11-16] MEDS: ferric carboxy (IVPB) 750 MG in sodium chloride 0.9% (100 ml) 100 ML 460 MG IV (15:24)
== END 2020-11-16 06:56 | disposition home or self-care (01) ==
LOC: ONCMED 06:58
PROVIDERS: PCP Family Medicine; Visit Provider Internal Medicine Medical Oncology
DX: D50.9 Iron deficiency anemia, unspecified (principal)
CPT/HCPCS: 96365; J1439

== ENCOUNTER 2020-12-26 11:36 | Outpatient (CLI) | payer MEDICARE, BC, SELFPAY ==
[2020-12-26 12:15] LABS: Basophils % 0.5 %; Eosinophils # 0.2 10^3/uL (0.0-0.8); Eosinophils % 4.1 %; Hematocrit 39.3 % (37.0-47.0); Hemoglobin 12.4 g/dL (11.5-15.3); Lymphocytes # 0.6 10^3/uL (0.8-4.8); Lymphocytes % 10.4 %; Mean Corpuscular HGB Conc 31.6 g/dL (30.0-36.0); Mean Corpuscular Hemoglobin 32.3 pg (28.0-34.0); Mean Corpuscular Volume 102.3 fL (81-99); Mean Platelet Volume 10.3 fL (7.4-10.4); Monocytes # 0.6 10^3/uL (0.2-0.9); Monocytes % 11.1 %; Neutrophils # 4.09 10^3/uL (1.8-7.7); Neutrophils % 73.5 %; Nucleated Red Blood Cells % 0 %; Platelet Count 310 10^3/cmm (130-400); Red Blood Count 3.84 10^6/uL (4.1-5.3); Red Cell Distribution Width 14.2 % (12.1-15.1); White Blood Count 5.6 10^3/uL (4.0-10.0)
[2020-12-26 17:52] LABS: Bilirubin Urine Neg (Negative); Blood Urine Neg (Negative); Glucose Urine UA Norm (Normal); Ketones Urine Negative (Negative); Nitrate Urine Negative (Negative); Protein Urine Neg (Negative); Specific Gravity, Urine 1.015 (1.005-1.030); Urine Appearance Clear (CLEAR); Urine Color Yellow (Yellow); pH Urine 5 (5-7)
[2020-12-26 17:53] LABS: Add Urine Microscopic? YES; Bacteria Urine TRACE /hpf; Leukocyte Esterase Urine 2+ (Negative); Mucus Urine TRACE /hpf; Squamous Epithelial Cell Urine 0-4 /hpf (0-5); Transitional Epi Cells Urine 0-4 /hpf; Urobilinogen Urine Norm (Negative); WBC Urine 0-4 /hpf (0-5)
--- NOTE | 2020-12-30 13:41 | ONC FU_ITS ---
Dr. Husain Patient Follow-Up Note Patient: Marsha Husain Unit #: [id number]: 1955 Dicatated By: John Husain M.D.Date of Visit:Dec 26, 2020 Onc Med Follow-up/Prog Note Chief Complaint: Anemia. History of Present Illness: This is a 65 year-old woman with recurrent iron deficiency anemia. She had recurrent episodes of anemia dating back to at least 2001. She had required transfusion and she also required parenteral iron replacement, as she had poor tolerance for oral iron supplements. I had seen her initially in May 2017. She reported having a prior episode of a bleeding ulcer requiring cauterization, estimated to have been in 2013. There had otherwise been no documented source for GI blood loss. Her recent evaluation had included colonoscopy in December 2014, EGD in July 2015, and upper endoscopy in February 2016. Her previous treatment had included a course of parenteral iron replacement with 5 infusions of Venofer during November 2016. She had been given parenteral iron on 2016, and she had a transfusion of packed red blood cells on . She had been feeling pretty good generally since that treatment. With her initial evaluation here her hemoglobin was adequate at 12.4 g with her serum iron studies showing transferrin saturation just slightly low at 17.3% and her ferritin in the low-normal range at 56 ng/mL. Her IFOB was negative. Given those findings, I had opted to just monitor with observation/expectant management. However, as of July 2017 her hemoglobin had dropped to 10.5 g, and at that point I did opt to give her parenteral iron replacement with Injectafer. She had a good response, but during subsequent follow-up she required infusions of Injectafer again in April 2018, in August 2018, and in April 2019. She was seen again in June 2019. Her CBC at that time showed normal hemoglobin at 13.3 g. Her serum iron studies showed slightly high transferrin saturation at 53.8% and the ferritin was also a little elevated at 337 ng/mL. She continued on observation/expectant management. Subsequent to that visit in June she had developed significant joint pain, determined to be rheumatoid arthritis. She was started on treatment with methotrexate. Her other medical illnesses include hypertension and peptic ulcer disease. 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 She is a nonsmoker. INTERIM HISTORY: In March 2020 her hemoglobin had decreased to 8.9 g with transferrin saturation down to 4.9% and ferritin low at 9 ng/mL. With those findings she was given additional parenteral iron replacement with Injectafer. She had a good response. However, as of July 2020 she remained mildly anemic with transferrin saturation low at 9%, and at that point I did opt to give her 2 additional infusions of Injectafer. She had a good response. However, as of her followup visit in October her hemoglobin was back down to 10.7 g with transferrin saturation low at 10%, and she was given 2 additional infusions of Injectafer. She has seen for a follow-up visit. Her energy has been better following the iron infusions in October. She has normal activity. ECOG score is 0. Her appetite has been okay. She has no fever or night sweats. She has not been having cough and she does not complain of shortness of breath. She has had sharp pain in the mid lower chest area off and on. She has no GI complaints. She does having urinary frequency and urgency. Her joint pain lately has been a little worse. She has occasional headache. She has no focal neurologic symptoms. Medications: Acetaminophen 2 Tablet (of 650 mg) Oral q 8 hours PRN, Folic Acid 1 Tablet Oral daily, Losartan Potassium-HCTZ 1 (50-12.5 mg) Tablet Oral daily, Methotrexate Sodium 4 Tablet Oral q 7 days, Multivitamin 1 Tablet Oral daily, Omeprazole 1 (20 mg) Capsule Delayed Release Oral daily, Vitamin C 1 (1000 mg) Tablet Oral daily Allergies: No Known Allergies. Vital Signs: Her weight is 218 pounds. Blood pressure 173/63, pulse 74, respirations 18, temp by 7.1 degrees, oxygen saturation 97%. Physical Examination: Constitutional - She looks pretty good generally, Eyes - Sclerae nonicteric. Conjunctivae clear, ENMT - No lesions noted in the oral cavity, Hematologic/Lymphatic - No cervical, clavicular, or axillary adenopathy, Respiratory - Lungs are clear with good air movement bilaterally, Cardiovascular - Heart rhythm is regular with some premature beats. There is a II/ systolic murmur. There is no gallop or rub noted, Abdomen - Soft. Liver and spleen are not enlarged. There is no abdominal mass or ascites noted and there is no inguinal adenopathy, Extremities - There is mild lower extremity edema and erythemia, worse on the right, Neurologic - No focal neurologic deficits noted. Lab/Imaging: Test performed on Dec 26, 2020 11:52 WBC 5.6 10 3/uL RBC 3.84 10 6/uL HGB 12.4 g/dL HCT 39.3 % MCV 102.3 fL MCH 32.3 pg MCHC 31.6 g/dL RDW 14.2 % Platelet Count 310 10 3/cmm MPV 10.3 fL Neutrophils 4.09 10 3/uL Lymphocytes 0.6 10 3/uL Monocytes 0.6 10 3/uL Eosinophils 0.2 10 3/uL Basophils 0.0 10 3/uL Neutrophil % 73.5 % Lymphocyte % 10.4 % Monocyte % 11.1 % Eosinophil % 4.1 % Basophils % 0.5 % NRBC % 0 % Problem List: 1. Iron deficiency anemia. A specific cause has not been determined, but the anemia has been responsive to parenteral iron replacement. 2. She has a prior history of bleeding ulcer, but her most recent GI evaluation showed no documented source of GI blood loss. 3. She developed significant joint pain, determined to be due to rheumatoid arthritis, for which she is on treatment with methotrexate. 4. Hypertension. 5. 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 Problems Addressed with this Encounter and Plan: 1. Patient with recurrent episodes of iron deficiency anemia which have been responsive to parenteral iron replacement. She was again given 2 infusions of Injectafer in March 2020 with her hemoglobin decreased to 8.9 g with transferrin saturation 4% and with serum ferritin low at 11 ng/mL. She had a good response, but she remained mildly anemic. As of July 2020 her serum iron studies show transferrin saturation back down to 9%, and at that point she did receive 2 additional infusions of Injectafer. She had a good response. However, as of her follow-up in October 2020 her hemoglobin is back down to 10.7 g with transferrin saturation low at 10%, and she was again given parenteral iron replacement with 2 infusions of Injectafer. She has had a good response to the parenteral iron, with her hemoglobin now normal at 12.4 g. She will continue to monitor her blood counts monthly with Dr. Reeves. I will see her again in 3 months. 2. She has symptoms of overactive bladder. She will be given a prescription for Ditropan. Signed By: John Husain M.D. <<Signature on File>>
== END 2020-12-26 11:37 | disposition home or self-care (01) ==
LOC: ONCMED 11:42
PROVIDERS: PCP Family Medicine; Visit Provider Internal Medicine Medical Oncology
DX: D50.9 Iron deficiency anemia, unspecified (principal); K27.4 Chronic or unspecified peptic ulcer, site unspecified, with hemorrhage; M06.9 Rheumatoid arthritis, unspecified; Z79.52 Long term (current) use of systemic steroids; Z79.2 Long term (current) use of antibiotics; Z79.899 Other long term (current) drug therapy
CPT/HCPCS: 36415; 81001; 85025; 99214

== ENCOUNTER → 2021-03-01 15:58 | Outpatient (BNVA) | payer MEDICARE, BC, SELFPAY | PROVIDERS: PCP Family Medicine; Visit Provider Internal Medicine Medical Oncology | DX: D64.9 Anemia, unspecified (principal) | CPT/HCPCS: 85025 ==

== ENCOUNTER 2021-03-03 10:35 | Outpatient (CLI) | payer MEDICARE, BC, SELFPAY ==
[2021-03-03 12:51] LABS: Ferritin 59 ng/mL (15-150); Iron 119 ug/dL (37-145); Percent Saturation 40.6 % (20-50); Total Iron Binding Capacity 293 mcg/dl; Unsaturated Iron Binding 174 ug/dL (112-347)
[2021-03-03 13:06] LABS: Vitamin B12 593 pg/mL (232-1245)
== END 2021-03-03 10:36 | disposition home or self-care (01) ==
LOC: ONCMED 10:37
PROVIDERS: PCP Family Medicine; Visit Provider Internal Medicine Medical Oncology
DX: D50.9 Iron deficiency anemia, unspecified (principal)
CPT/HCPCS: 36415; 82607; 82728; 83540; 83550

== ENCOUNTER 2021-05-02 13:10 | Outpatient (CLI) | payer MEDICARE, BC, SELFPAY ==
[2021-05-02 14:04] LABS: Basophils % 0.5 %; Eosinophils # 0.2 10^3/uL (0.0-0.8); Eosinophils % 3.1 %; Hematocrit 33.3 % (37.0-47.0); Hemoglobin 10.1 g/dL (11.5-15.3); Lymphocytes # 0.7 10^3/uL (0.8-4.8); Lymphocytes % 11.5 %; Mean Corpuscular HGB Conc 30.3 g/dL (30.0-36.0); Mean Corpuscular Hemoglobin 28.9 pg (28.0-34.0); Mean Corpuscular Volume 95.1 fl (81-99); Mean Platelet Volume 10.1 fL (7.4-10.4); Monocytes # 0.9 10^3/uL (0.2-0.9); Monocytes % 14.2 %; Neutrophils # 4.49 10^3/uL (1.8-7.7); Neutrophils % 70.5 %; Nucleated Red Blood Cells % 0 %; Platelet Count 365 10^3/cmm (130-400); Red Cell Distribution Width 14.4 % (12.1-15.1); White Blood Count 6.4 10^3/uL (4.0-10.0)
[2021-05-02 14:33] LABS: Alanine Aminotransferase 18 U/L (0-33); Albumin Level 3.7 g/dL (3.5-5.2); Alkaline Phosphatase 69 IU/L (35-105); Aspartate Amino Transferase 17 U/L (0-32); Blood Urea Nitrogen 16 mg/dL (8-23); Calcium 8.7 mg/dL (8.5-10.5); Carbon Dioxide 27 mmol/L (22-29); Chloride 103 mmol/L (98-107); Ferritin 15 ng/mL (15-150); Globulin 2.6 g/dL (1.3-4.6); Glucose 81 mg/dL (65-115); Iron 25 ug/dL (37-145); Osmolality Calculated 292 mOsm/kg (285-295); Percent Saturation 7.5 % (20-50); Sodium 141 mmol/L (136-145); Total Bilirubin 0.2 mg/dL (0.15-1.2); Total Iron Binding Capacity 330 mcg/dl; Total Protein 6.3 g/dL (6.6-8.7); Unsaturated Iron Binding 305 ug/dL (112-347)
[2021-05-02 14:35] LABS: Anion Gap 14.9 (5-19); Potassium 3.9 mmol/L (3.5-5.1)
[2021-05-02 14:49] LABS: Vitamin B12 612 pg/mL (232-1245)
[2021-05-02] MEDS: sodium chloride 0.9% 100 mL Bag IV (16:35)
[2021-05-02] MEDS: ferric carboxy (PYXIS) 750 mg/15 mL INJ IV (16:35)
[2021-05-02 16:43] LABS: Thyroid Stimulating Hormone 1.34 uIU/mL (0.27-4.20)
--- NOTE | 2021-05-06 11:09 | ONC FU_ITS ---
Dr. Husain Patient Follow-Up Note Patient: Marsha Husain Unit #: [id number]: 1955 Dicatated By: John Husain M.D.Date of Visit:May 02, 2021 Onc Med Follow-up/Prog Note Chief Complaint: Anemia. History of Present Illness: This is a 66 year-old woman with recurrent iron deficiency anemia. She had recurrent episodes of anemia dating back to at least 2001. She had required transfusion and she also required parenteral iron replacement, as she had poor tolerance for oral iron supplements. I had seen her initially in May 2017. She reported having a prior episode of a bleeding ulcer requiring cauterization, estimated to have been in 2013. There had otherwise been no documented source for GI blood loss. Her recent evaluation had included colonoscopy in December 2014, EGD in July 2015, and upper endoscopy in February 2016. Her previous treatment had included a course of parenteral iron replacement with 5 infusions of Venofer during November 2016. She had been given parenteral iron on 2016, and she had a transfusion of packed red blood cells on . She had been feeling pretty good generally since that treatment. With her initial evaluation here her hemoglobin was adequate at 12.4 g with her serum iron studies showing transferrin saturation just slightly low at 17.3% and her ferritin in the low-normal range at 56 ng/mL. Her IFOB was negative. Given those findings, I had opted to just monitor with observation/expectant management. However, as of July 2017 her hemoglobin had dropped to 10.5 g, and at that point I did opt to give her parenteral iron replacement with Injectafer. She had a good response, but during subsequent follow-up she required infusions of Injectafer again in April 2018, in August 2018, and in April 2019. She was seen again in June 2019. Her CBC at that time showed normal hemoglobin at 13.3 g. Her serum iron studies showed slightly high transferrin saturation at 53.8% and the ferritin was also a little elevated at 337 ng/mL. She continued on observation/expectant management. Subsequent to that visit in June she had developed significant joint pain, determined to be rheumatoid arthritis. She was started on treatment with methotrexate. Her other medical illnesses include hypertension and peptic ulcer disease. 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 She is a nonsmoker. INTERIM HISTORY: In March 2020 her hemoglobin had decreased to 8.9 g with transferrin saturation down to 4.9% and ferritin low at 9 ng/mL. With those findings she was given additional parenteral iron replacement with Injectafer. She had a good response. However, as of July 2020 she remained mildly anemic with transferrin saturation low at 9%, and at that point I did opt to give her 2 additional infusions of Injectafer. She had a good response. However, as of her followup visit in October her hemoglobin was back down to 10.7 g with transferrin saturation low at 10%, and she was given 1 additional infusion of Injectafer. She had a good response, with her CBC in December showing an increase in her hemoglobin to 12.4 g. She has seen for a follow-up visit. She has been feeling a little tired again lately, though she is still working and she has normal activity. ECOG score is 0. Her appetite is good. She has not had fever. She sometimes feels warm and has sweating. She currently is on an antibiotic for a bad tooth. She does not complain of cough, and she has not been having shortness of breath or chest pain. Recently she had a couple of black stools. She has no other GI complaints. She has urinary frequency and urgency. She says she has been having a lot of arthritis pain. She is on methotrexate, she also gets steroid shots every 1 to 2 months. She occasionally has headache. Lately she has been off balance. She has no numbness/paresthesia or other focal neurologic symptoms. Medications: Acetaminophen 2 Tablet (of 650 mg) Oral q 8 hours PRN, Folic Acid 1 Tablet Oral daily, Losartan Potassium-HCTZ 1 (50-12.5 mg) Tablet Oral daily, Methotrexate Sodium 4 Tablet Oral q 7 days, Multivitamin 1 Tablet Oral daily, Omeprazole 1 (20 mg) Capsule Delayed Release Oral daily, Vitamin C 1 (1000 mg) Tablet Oral daily Allergies: No Known Allergies. Vital Signs: Performed on May 02, 2021 15:56 Height - 66.00 in Weight - 224.4 lbs (HIGH) BSA - 2.10 sq.m BMI - 36.22 (HIGH) Temperature - 96.9 F (LOW) Pulse - 57 /min (LOW) Respiration - 20 /min BP - 174/78 mm(hg) (HIGH) O2 Sat - 92 % (LOW) Pain - 0 Fatigue - 7 Physical Examination: Constitutional - She looks pretty good generally, Eyes - Sclerae nonicteric. Conjunctivae clear, ENMT - No lesions noted in the oral cavity, Hematologic/Lymphatic - No cervical, clavicular, or axillary adenopathy, Respiratory - Lungs are clear with good air movement bilaterally, Cardiovascular - Heart rhythm is regular. There is a II/ systolic murmur. There is no gallop or rub noted, Abdomen - Soft. Liver and spleen are not enlarged. There is no abdominal mass or ascites noted and there is no inguinal adenopathy, Extremities - There is mild swelling of the right leg. There are purpuric lesions on both arms, Neurologic - No focal neurologic deficits noted. Lab/Imaging: Test performed on May 02, 2021 13:50 Ferritin 15 ng/mL Iron 25 mcg/dL Sodium 141 mmol/L TSH 1.34 uIU/mL Vitamin B12 612 pg/mL Iron Binding Capacity (TIBC) 330 mcg/dl Potassium 3.9 mmol/L % Iron Saturation 7.5 % Chloride 103 mmol/L CO2 27 mmol/L UIBC 305 mcg/dL Anion Gap 14.9 BUN 16 mg/dL Creatinine 0.6 mg/dL Cr Clearance (Est) 148.20 mL/min eGFR 100.0 mL/min Glucose 81 mg/dL Osmolality - Calculated 292 mOsm/kg Calcium 8.7 mg/dL Protein, Total 6.3 g/dL Albumin 3.7 g/dL Globulin 2.6 g/dL Bilirubin, Total 0.2 mg/dL ALT (SGPT) 18 U/L AST (SGOT) 17 U/L Alkaline Phosphatase 69 IU/L WBC 6.4 10 3/uL RBC 3.50 10 6/uL HGB 10.1 g/dL HCT 33.3 % MCV 95.1 fl MCH 28.9 pg MCHC 30.3 g/dL RDW 14.4 % Platelet Count 365 10 3/cmm MPV 10.1 fL Neutrophils 4.49 10 3/uL Lymphocytes 0.7 10 3/uL Monocytes 0.9 10 3/uL Eosinophils 0.2 10 3/uL Basophils 0.0 10 3/uL Neutrophil % 70.5 % Lymphocyte % 11.5 % Monocyte % 14.2 % Eosinophil % 3.1 % Basophils % 0.5 % NRBC % 0 % Problem List: 1. Iron deficiency anemia. A specific cause has not been determined, but the anemia has been responsive to parenteral iron replacement. 2. She has a prior history of bleeding ulcer, but her most recent GI evaluation showed no documented source of GI blood loss. 3. She developed significant joint pain, determined to be due to rheumatoid arthritis, for which she is on treatment with methotrexate. 4. Hypertension. 5. 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 Problems Addressed with this Encounter and Plan: Patient with recurrent episodes of iron deficiency anemia which have been responsive to parenteral iron replacement. She was again given 2 infusions of Injectafer in March 2020 with her hemoglobin decreased to 8.9 g with transferrin saturation 4% and with serum ferritin low at 11 ng/mL. She had a good response, but she remained mildly anemic. As of July 2020 her serum iron studies show transferrin saturation back down to 9%, and at that point she did receive 2 additional infusions of Injectafer. She had a good response. However, as of her follow-up in October 2020 her hemoglobin is back down to 10.7 g with transferrin saturation low at 10%, and she was given 1 additional infusion of Injectafer. She had a good response with CBC in December showing hemoglobin back up to 12.4 g. However, she is having more fatigue now and her hemoglobin is back down to 10.1 g with transferrin saturation low at 7.5% and ferritin low at 15 ng/mL, consistent with iron deficiency. She will be given parenteral iron replacement with 2 infusions of Injectafer. Blood counts will be monitored monthly. I will see her again in 3 months, or sooner as needed. Signed By: John Husain M.D. <<Signature on File>>
== END 2021-05-02 13:11 | disposition home or self-care (01) ==
LOC: ONCMED 13:30
PROVIDERS: PCP Family Medicine; Visit Provider Internal Medicine Medical Oncology
DX: D50.9 Iron deficiency anemia, unspecified (principal); M06.9 Rheumatoid arthritis, unspecified; Z79.52 Long term (current) use of systemic steroids; I10 Essential (primary) hypertension; L00 Staphylococcal scalded skin syndrome; Z79.2 Long term (current) use of antibiotics; Z87.11 Personal history of peptic ulcer disease; Z79.899 Other long term (current) drug therapy
CPT/HCPCS: 80053; 82607; 82728; 83540; 83550; 84443; 85025; 96365; 99214; J1439

== ENCOUNTER 2021-05-10 14:48 | Outpatient (CLI) | payer MEDICARE, BC, SELFPAY ==
[2021-05-10] MEDS: ferric carboxy (IVPB) 750 MG in sodium chloride 0.9% (100 ml) 100 ML 460 MG IV (15:24)
== END 2021-05-10 14:49 | disposition home or self-care (01) ==
LOC: ONCMED 14:48
PROVIDERS: PCP Family Medicine; Visit Provider Internal Medicine Medical Oncology
DX: D50.9 Iron deficiency anemia, unspecified (principal)
CPT/HCPCS: 96365; J1439

== ENCOUNTER 2021-06-05 15:36 | Outpatient (CLI) | payer MEDICARE, BC, SELFPAY ==
[2021-06-05 16:27] LABS: Basophils % 0.6 %; Eosinophils # 0.3 10^3/uL (0.0-0.8); Eosinophils % 5.3 %; Hematocrit 40.9 % (37.0-47.0); Hemoglobin 12.7 g/dL (11.5-15.3); Lymphocytes # 0.9 10^3/uL (0.8-4.8); Lymphocytes % 15.2 %; Mean Corpuscular HGB Conc 31.1 g/dL (30.0-36.0); Mean Corpuscular Hemoglobin 30.8 pg (28.0-34.0); Mean Platelet Volume 12.3 fL (7.4-10.4); Monocytes % 15.8 %; Neutrophils # 3.87 10^3/uL (1.8-7.7); Neutrophils % 62.6 %; Nucleated Red Blood Cells % 0 %; Platelet Count 199 10^3/cmm (130-400); Red Blood Count 4.13 10^6/uL (4.1-5.3); Red Cell Distribution Width 16.8 % (12.1-15.1); White Blood Count 6.2 10^3/uL (4.0-10.0)
[2021-06-05 16:39] LABS: Ferritin 273 ng/mL (15-150); Iron 52 ug/dL (37-145); Percent Saturation 21.6 % (20-50); Total Iron Binding Capacity 240 mcg/dl; Unsaturated Iron Binding 188 ug/dL (112-347)
[2021-06-05 17:22] LABS: Slide Review Slide Review Perform
== END 2021-06-05 15:37 | disposition home or self-care (01) ==
PROVIDERS: PCP Family Medicine; Visit Provider Internal Medicine Medical Oncology
DX: D50.9 Iron deficiency anemia, unspecified (principal)
CPT/HCPCS: 36415; 82728; 83540; 83550; 85025

== ENCOUNTER 2021-06-14 09:57 | Outpatient (CLI) | payer MEDICARE, BC, SELFPAY ==
[2021-06-14 07:52] VITALS: BMI 38.0
[2021-06-14 10:30] VITALS: BP 135/84; PULSE 72; RESP 16; TEMP 36.7; O2SAT 98
[2021-06-14 11:05] VITALS: BP 142/92; PULSE 71; RESP 16; TEMP 36.5; O2SAT 97
[2021-06-14 12:05] VITALS: BP 143/89; PULSE 67; RESP 16; TEMP 36.8; O2SAT 98
== END 2021-06-14 09:58 | disposition home or self-care (01) ==
LOC: OPS 10:02
PROVIDERS: PCP Family Medicine; Visit Provider Family Medicine
DX: U07.1 COVID-19 (principal)
CPT/HCPCS: 96365

== ENCOUNTER 2021-07-04 14:36 | Outpatient (CLI) | payer MEDICARE, BC, SELFPAY ==
[2021-07-04 15:54] LABS: Basophils % 0.5 %; Eosinophils # 0.3 10^3/uL (0.0-0.8); Eosinophils % 4.7 %; Hematocrit 37.2 % (37.0-47.0); Hemoglobin 11.6 g/dL (11.5-15.3); Lymphocytes % 17.6 %; Mean Corpuscular HGB Conc 31.2 g/dL (30.0-36.0); Mean Corpuscular Hemoglobin 31.1 pg (28.0-34.0); Mean Corpuscular Volume 99.7 fl (81-99); Mean Platelet Volume 10.4 fL (7.4-10.4); Monocytes % 18.5 %; Neutrophils % 58.3 %; Nucleated Red Blood Cells % 0 %; Platelet Count 344 10^3/cmm (130-400); Red Blood Count 3.73 10^6/uL (4.1-5.3); Red Cell Distribution Width 17.5 % (12.1-15.1); White Blood Count 5.5 10^3/uL (4.0-10.0)
[2021-07-04 16:04] LABS: Blood Urea Nitrogen 12 mg/dL (8-23); Carbon Dioxide 27 mmol/L (22-29); Chloride 104 mmol/L (98-107); Glucose 83 mg/dL (65-115); Sodium 141 mmol/L (136-145)
[2021-07-04 16:05] LABS: Alanine Aminotransferase 20 U/L (0-33); Albumin Level 3.9 g/dL (3.5-5.2); Alkaline Phosphatase 89 IU/L (35-105); Aspartate Amino Transferase 20 U/L (0-32); Calcium 9.8 mg/dL (8.5-10.5); Ferritin 203 ng/mL (15-150); Globulin 2.6 g/dL (1.3-4.6); Iron 53 ug/dL (37-145); Osmolality Calculated 291 mOsm/kg (285-295); Percent Saturation 20.1 % (20-50); Total Bilirubin 0.2 mg/dL (0.15-1.2); Total Iron Binding Capacity 263 mcg/dl; Total Protein 6.5 g/dL (6.6-8.7); Unsaturated Iron Binding 210 ug/dL (112-347)
[2021-07-04 16:32] LABS: Anion Gap 14.3 (5-19); Potassium 4.3 mmol/L (3.5-5.1)
[2021-07-06 12:41] LABS: Erythrocyte Sedimentation Rate 26 mm/hr (0-15)
[2021-07-06 12:42] LABS: Reticulocyte % 2.1 % (0.5-2.0)
== END 2021-07-04 14:37 | disposition home or self-care (01) ==
PROVIDERS: PCP Family Medicine; Visit Provider Internal Medicine Medical Oncology
DX: D50.9 Iron deficiency anemia, unspecified (principal)
CPT/HCPCS: 36415; 80053; 82728; 83540; 83550; 85025; 85045; 85651

== ENCOUNTER 2021-08-03 13:33 | Outpatient (CLI) | payer MEDICARE, BC, SELFPAY ==
[2021-08-03 15:10] LABS: Basophils % 0.4 %; Eosinophils # 0.3 10^3/uL (0.0-0.8); Eosinophils % 4.1 %; Hematocrit 36.2 % (37.0-47.0); Hemoglobin 11.4 g/dL (11.5-15.3); Lymphocytes # 0.8 10^3/uL (0.8-4.8); Lymphocytes % 10.7 %; Mean Corpuscular HGB Conc 31.5 g/dL (30.0-36.0); Mean Corpuscular Hemoglobin 32.2 pg (28.0-34.0); Mean Corpuscular Volume 102.3 fl (81-99); Monocytes # 0.8 10^3/uL (0.2-0.9); Monocytes % 11.1 %; Neutrophils # 5.34 10^3/uL (1.8-7.7); Neutrophils % 73.4 %; Nucleated Red Blood Cells % 0 %; Platelet Count 383 10^3/cmm (130-400); Red Blood Count 3.54 10^6/uL (4.1-5.3); Red Cell Distribution Width 15.5 % (12.1-15.1); White Blood Count 7.3 10^3/uL (4.0-10.0)
[2021-08-03 15:37] LABS: Alanine Aminotransferase 25 U/L (0-33); Albumin Level 3.7 g/dL (3.5-5.2); Alkaline Phosphatase 77 IU/L (35-105); Anion Gap 11.2 (5-19); Aspartate Amino Transferase 25 U/L (0-32); Blood Urea Nitrogen 12 mg/dL (8-23); Calcium 9.6 mg/dL (8.5-10.5); Carbon Dioxide 31 mmol/L (22-29); Chloride 103 mmol/L (98-107); Ferritin 65 ng/mL (15-150); Glucose 90 mg/dL (65-115); Iron 31 ug/dL (37-145); Osmolality Calculated 291 mOsm/kg (285-295); Percent Saturation 11.6 % (20-50); Potassium 4.2 mmol/L (3.5-5.1); Sodium 141 mmol/L (136-145); Total Bilirubin 0.2 mg/dL (0.15-1.2); Total Iron Binding Capacity 266 mcg/dl; Total Protein 6.7 g/dL (6.6-8.7); Unsaturated Iron Binding 235 ug/dL (112-347)
[2021-08-03 16:30] LABS: Erythrocyte Sedimentation Rate 18 mm/hr (0-15)
[2021-08-03] MEDS: sodium chloride 0.9% (100 ml) 100 ML 400 ML (16:36)
[2021-08-03] MEDS: ferric carboxy (IVPB) 750 MG in sodium chloride 0.9% (100 ml) 100 ML 375 MG IV (16:36)
[2021-08-03 18:11] LABS: C Reactive Protein 5.8 mg/L (0.0-4.9)
--- NOTE | 2021-08-07 07:51 | ONC FU_ITS ---
Dr. Husain Patient Follow-Up Note Patient: Marsha Husain Unit #: [id number]: 1955 Dicatated By: John Husain M.D.Date of Visit:Aug 03, 2021 Onc Med Follow-up/Prog Note Chief Complaint: Anemia. History of Present Illness: This is a 66 year-old woman with recurrent iron deficiency anemia. She had recurrent episodes of anemia dating back to at least 2001. She had required transfusion and she also required parenteral iron replacement, as she had poor tolerance for oral iron supplements. I had seen her initially in May 2017. She reported having a prior episode of a bleeding ulcer requiring cauterization, estimated to have been in 2013. There had otherwise been no documented source for GI blood loss. Her recent evaluation had included colonoscopy in December 2014, EGD in July 2015, and upper endoscopy in February 2016. Her previous treatment had included a course of parenteral iron replacement with 5 infusions of Venofer during November 2016. She had been given parenteral iron on 2016, and she had a transfusion of packed red blood cells on . She had been feeling pretty good generally since that treatment. With her initial evaluation here her hemoglobin was adequate at 12.4 g with her serum iron studies showing transferrin saturation just slightly low at 17.3% and her ferritin in the low-normal range at 56 ng/mL. Her IFOB was negative. Given those findings, I had opted to just monitor with observation/expectant management. However, as of July 2017 her hemoglobin had dropped to 10.5 g, and at that point I did opt to give her parenteral iron replacement with Injectafer. She had a good response, but during subsequent follow-up she required infusions of Injectafer again in April 2018, in August 2018, and in April 2019. She was seen again in June 2019. Her CBC at that time showed normal hemoglobin at 13.3 g. Her serum iron studies showed slightly high transferrin saturation at 53.8% and the ferritin was also a little elevated at 337 ng/mL. She continued on observation/expectant management. Subsequent to that visit in June she had developed significant joint pain, determined to be rheumatoid arthritis. She was started on treatment with methotrexate. Her other medical illnesses include hypertension and peptic ulcer disease. 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 She is a nonsmoker. INTERIM HISTORY: In March 2020 her hemoglobin had decreased to 8.9 g with transferrin saturation down to 4.9% and ferritin low at 9 ng/mL. With those findings she was given additional parenteral iron replacement with Injectafer. She had a good response. However, as of July 2020 she remained mildly anemic with transferrin saturation low at 9%, and at that point I did opt to give her 2 additional infusions of Injectafer. She had a good response. However, as of her followup visit in October her hemoglobin was back down to 10.7 g with transferrin saturation low at 10%, and she was given 1 additional infusion of Injectafer. She had a good response, with her CBC in December showing an increase in her hemoglobin to 12.4 g. However, as of 05/02/2021 she was mildly anemic again, hemoglobin 10.1 g. Her transferrin saturation was low at 7.5% with ferritin also low at 15 ng/mL, consistent with iron deficiency. She was given 2 additional infusions of Injectafer. She has seen for a follow-up visit. She complains that she has not been feeling too good. She has been under a lot of stress. She was diagnosed with COVID-19 virus infection in May, and her later that month. 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 She complains that she cannot sleep at night, but then she wants to fall asleep a lot during the daytime, and she complains that she just feels tired. She has limited activity tolerance. ECOG score is 1. She has good appetite. She does not have fever, night sweats, or hot flashes. She has not had sore mouth or throat. She does not complain of cough and she has not been short of breath. She has had a few little chest pains, but not bad. She has no GI or complaints. She reports having a lot of arthritis pain. She says her joints hurt all over. She has headaches and she sometimes has dizziness. She has no numbness/paresthesia or other focal neurologic symptoms. Medications: Acetaminophen 2 Tablet (of 650 mg) Oral q 8 hours PRN, Aspirin 81 1 Tablet (of 81 mg) Tablet, chewable Oral daily, Folic Acid 1 Tablet Oral daily, Losartan Potassium-HCTZ 1 (50-12.5 mg) Tablet Oral daily, Methotrexate Sodium 4 Tablet Oral q 7 days, Multivitamin 1 Tablet Oral daily, Omeprazole 1 (20 mg) Capsule Delayed Release Oral daily, Vitamin C 1 (1000 mg) Tablet Oral b.i.d., Vitamin D3 1 Tablet Oral daily, Zinc Tablet Oral daily Allergies: No Known Allergies. Vital Signs: Performed on Aug 03, 2021 15:38 Height - 66.00 in BP - 166/90 mm(hg) (HIGH) Performed on Aug 03, 2021 15:37 Height - 66.00 in Weight - 227.6 lbs (HIGH) BSA - 2.11 sq.m BMI - 36.74 (HIGH) Temperature - 96.6 F (LOW) Pulse - 78 /min Respiration - 18 /min BP - 188/100 mm(hg) (HIGH) O2 Sat - 93 % (LOW) Pain - 0 Fatigue - 6 Physical Examination: Constitutional - She looks pretty good generally, Eyes - Sclerae nonicteric. Conjunctivae clear, ENMT - No lesions noted in the oral cavity, Hematologic/Lymphatic - No cervical, clavicular, or axillary adenopathy, Respiratory - Lungs are clear with good air movement bilaterally, Cardiovascular - Heart rhythm is irregular. There is a mild tachycardia. There is no murmur, gallop, or rub noted, Abdomen - Soft. Liver and spleen are not enlarged. There is no abdominal mass or ascites noted and there is no inguinal adenopathy, Extremities - There is mild swelling of the right leg. There are purpuric lesions on both arms, Neurologic - No focal neurologic deficits noted. Lab/Imaging: Test performed on Aug 03, 2021 15:00 Ferritin 65 ng/mL Iron 31 mcg/dL Sodium 141 mmol/L Iron Binding Capacity (TIBC) 266 mcg/dl Potassium 4.2 mmol/L % Iron Saturation 11.6 % Chloride 103 mmol/L CO2 31 mmol/L UIBC 235 mcg/dL Anion Gap 11.2 BUN 12 mg/dL Creatinine 0.6 mg/dL Cr Clearance (Est) 150.32 mL/min eGFR 100.0 mL/min Glucose 90 mg/dL Osmolality - Calculated 291 mOsm/kg Calcium 9.6 mg/dL Protein, Total 6.7 g/dL Albumin 3.7 g/dL Globulin 3.0 g/dL Bilirubin, Total 0.2 mg/dL ALT (SGPT) 25 U/L AST (SGOT) 25 U/L Alkaline Phosphatase 77 IU/L ESR (Sed Rate) 18 mm/hr WBC 7.3 10 3/uL RBC 3.54 10 6/uL HGB 11.4 g/dL HCT 36.2 % MCV 102.3 fl MCH 32.2 pg MCHC 31.5 g/dL RDW 15.5 % Platelet Count 383 10 3/cmm MPV 10.0 fL Neutrophils 5.34 10 3/uL Lymphocytes 0.8 10 3/uL Monocytes 0.8 10 3/uL Eosinophils 0.3 10 3/uL Basophils 0.0 10 3/uL Neutrophil % 73.4 % Lymphocyte % 10.7 % Monocyte % 11.1 % Eosinophil % 4.1 % Basophils % 0.4 % NRBC % 0 % Problem List: 1. Iron deficiency anemia. A specific cause has not been determined, but the anemia has been responsive to parenteral iron replacement. 2. She has a prior history of bleeding ulcer, but her most recent GI evaluation showed no documented source of GI blood loss. 3. She developed significant joint pain, determined to be due to rheumatoid arthritis, for which she is on treatment with methotrexate. 4. Hypertension. 5. 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 Problems Addressed with this Encounter and Plan: 1. Patient with recurrent episodes of iron deficiency anemia which have been responsive to parenteral iron replacement. She was most recently treated with 2 infusions of Injectafer in April 2021. She did show response, with her follow-up CBC on 06/05/2021 showing hemoglobin increased to 12.7 g. However, she is now mildly anemic again with her transferrin saturation low at 11.6%. Ferritin is in the low normal range at 65 ng/mL. As such, she will be given 1 additional infusion of Injectafer. She will be scheduled for a follow-up visit in 1 month. 2. She is having significant fatigue, which seems disproportionate to the severity of her anemia. She has symptoms which are suggestive of obstructive sleep apnea, and at some point that may need to be evaluated. However, in the meantime, she has developed atrial fibrillation with her ventricular response at a little over 100, and that may also be contributing to her symptoms. As such, I will have her start metoprolol 25 mg twice daily and will have her monitor her blood pressure at home. I will arrange for outpatient cardiology consultation. Signed By: John Husain M.D. <<Signature on File>>
== END 2021-08-03 13:34 | disposition home or self-care (01) ==
PROVIDERS: PCP Family Medicine; Visit Provider Internal Medicine Medical Oncology
DX: D50.9 Iron deficiency anemia, unspecified (principal); I10 Essential (primary) hypertension; K27.9 Peptic ulcer, site unspecified, unspecified as acute or chronic, without hemorrhage or perforation; M06.9 Rheumatoid arthritis, unspecified; B95.8 Unspecified staphylococcus as the cause of diseases classified elsewhere; Z79.2 Long term (current) use of antibiotics; Z79.899 Other long term (current) drug therapy
CPT/HCPCS: 80053; 82728; 83540; 83550; 85025; 85651; 86140; 96365; 99214; J1439

== ENCOUNTER 2021-08-11 10:12 | Outpatient (CLI) | payer MEDICARE, BC, SELFPAY ==
[2021-08-11] MEDS: ferric carboxy (IVPB) 750 MG in sodium chloride 0.9% (100 ml) 100 ML 400 MG IV (10:53)
== END 2021-08-11 10:13 | disposition home or self-care (01) ==
PROVIDERS: PCP Family Medicine; Visit Provider Internal Medicine Medical Oncology
DX: D50.9 Iron deficiency anemia, unspecified (principal)
CPT/HCPCS: 96365; J1439

== ENCOUNTER 2021-08-15 12:16 | Outpatient (CLI) | payer MEDICARE, BC, SELFPAY | END 2021-08-15 12:17 | disposition home or self-care (01) | PROVIDERS: PCP Family Medicine; Visit Provider Internal Medicine Medical Oncology | DX: D50.9 Iron deficiency anemia, unspecified (principal) | CPT/HCPCS: 82274 ==

== ENCOUNTER 2021-10-18 13:36 | Oncology outpatient (recurring) (ONCR) | payer MEDICARE, BC, SELFPAY ==
[2021-10-18 14:12] LABS: Basophils % 0.3 %; Eosinophils # 0.2 10^3/uL (0.0-0.8); Eosinophils % 3.8 %; Hematocrit 43.9 % (37.0-47.0); Hemoglobin 13.8 g/dL (11.5-15.3); Lymphocytes % 15.5 %; Mean Corpuscular HGB Conc 31.4 g/dL (30.0-36.0); Mean Corpuscular Volume 101.9 fl (81-99); Mean Platelet Volume 10.2 fL (7.4-10.4); Monocytes % 15.6 %; Neutrophils # 4.13 10^3/uL (1.8-7.7); Neutrophils % 64.6 %; Nucleated Red Blood Cells % 0 %; Platelet Count 318 10^3/cmm (130-400); Red Blood Count 4.31 10^6/uL (4.1-5.3); Red Cell Distribution Width 13.4 % (12.1-15.1); White Blood Count 6.4 10^3/uL (4.0-10.0)
[2021-10-18 19:20] LABS: Ferritin 130 ng/mL (15-150); Iron 49 ug/dL (37-145); Total Iron Binding Capacity 272 mcg/dl; Unsaturated Iron Binding 223 ug/dL (112-347)
== END 2021-10-24 23:59 | disposition home or self-care (01) ==
PROVIDERS: PCP Family Medicine; Visit Provider Internal Medicine Medical Oncology
DX: D50.9 Iron deficiency anemia, unspecified (principal); Z79.899 Other long term (current) drug therapy
CPT/HCPCS: 82728; 83540; 83550; 85025; 99214

== ENCOUNTER 2022-01-16 12:56 | Oncology outpatient (recurring) (ONCR) | payer MEDICARE, BC, SELFPAY ==
[2022-01-16 13:42] LABS: Hematocrit 41.6 % (37.0-47.0); Hemoglobin 12.4 g/dL (11.5-15.3); Mean Corpuscular HGB Conc 29.8 g/dL (30.0-36.0); Mean Corpuscular Hemoglobin 31.6 pg (28.0-34.0); Mean Corpuscular Volume 105.9 fl (81-99); Mean Platelet Volume 9.9 fL (7.4-10.4); Platelet Count 335 10^3/cmm (130-400); Red Blood Count 3.93 10^6/uL (4.1-5.3); Red Cell Distribution Width 15.5 % (12.1-15.1)
[2022-01-16 14:07] LABS: Ferritin 206 ng/mL (15-150); Iron 51 ug/dL (37-145)
[2022-01-16 14:14] LABS: Percent Saturation 21.1 % (20-50); Total Iron Binding Capacity 241 mcg/dl; Unsaturated Iron Binding 190 ug/dL (112-347)
[2022-01-16 14:35] LABS: Absolute Eosinophils 0.2 10^3/cmm (0.0-0.7); Absolute Segmented Neutrophil 5.7 10/cmm (1.6-7.1); Band Neutrophils Absolute 0.1 10^3/cmm (0.0-1.2); Eosinophils 4 %; Lymphocytes 9 %; Lymphocytes Absolute 0.6 10^3/cmm (1.2-3.4); Monocytes Absolute 0.3 10^3/cmm (0.1-0.6); Segmented Neutrophils 82 %; Total Cells Counted 100 (0-100)
[2022-01-16 14:36] LABS: Anisocytosis 1+; Macrocytosis 1+
[2022-01-16 14:51] LABS: Absolute Neutrophil 5.8 10^3/cmm (1.4-6.5); Platelet Estimate Normal (Normal)
== END 2022-01-24 23:59 | disposition home or self-care (01) ==
PROVIDERS: PCP Family Medicine; Visit Provider Internal Medicine Medical Oncology
DX: D50.9 Iron deficiency anemia, unspecified (principal); R53.83 Other fatigue; Z79.899 Other long term (current) drug therapy
CPT/HCPCS: 82728; 83540; 83550; 85007; 85027; G0463

== ENCOUNTER 2022-02-21 14:58 | Oncology outpatient (recurring) (ONCR) | payer MEDICARE, BC, SELFPAY ==
[2022-02-21 15:49] LABS: Basophils % 0.1 %; Eosinophils # 0.1 10^3/uL (0.0-0.8); Eosinophils % 0.7 %; Hematocrit 41.4 % (37.0-47.0); Hemoglobin 12.9 g/dL (11.5-15.3); Lymphocytes # 1.4 10^3/uL (0.8-4.8); Lymphocytes % 11.7 %; Mean Corpuscular HGB Conc 31.2 g/dL (30.0-36.0); Mean Corpuscular Hemoglobin 31.9 pg (28.0-34.0); Mean Corpuscular Volume 102.5 fl (81-99); Mean Platelet Volume 10.3 fL (7.4-10.4); Monocytes # 1.2 10^3/uL (0.2-0.9); Monocytes % 10.2 %; Neutrophils # 8.85 10^3/uL (1.8-7.7); Nucleated Red Blood Cells % 0 %; Platelet Count 392 10^3/cmm (130-400); Red Blood Count 4.04 10^6/uL (4.1-5.3); Red Cell Distribution Width 15.2 % (12.1-15.1); White Blood Count 11.5 10^3/uL (4.0-10.0)
[2022-02-21 16:03] LABS: Iron 47 ug/dL (37-145); Total Iron Binding Capacity 293 mcg/dl; Unsaturated Iron Binding 246 ug/dL (112-347)
== END 2022-02-23 23:59 | disposition home or self-care (01) ==
PROVIDERS: PCP Family Medicine; Visit Provider Internal Medicine Medical Oncology
DX: D50.8 Other iron deficiency anemias (principal)
CPT/HCPCS: 36415; 83540; 83550; 85025

== ENCOUNTER 2022-03-15 11:00 | Oncology outpatient (recurring) (ONCR) | payer MEDICARE, BC, SELFPAY ==
[2022-03-01] MEDS: ferric carboxy (IVPB) 750 MG in sodium chloride 0.9% (100 ml) 100 ML 345 MG IV (11:48)
== END 2022-03-26 23:59 | disposition home or self-care (01) ==
PROVIDERS: PCP Family Medicine; Visit Provider Internal Medicine Medical Oncology
DX: D50.9 Iron deficiency anemia, unspecified (principal); R53.83 Other fatigue; Z79.899 Other long term (current) drug therapy
CPT/HCPCS: 96365; J1439

== ENCOUNTER 2022-04-30 11:09 | Oncology outpatient (recurring) (ONCR) | payer MEDICARE, BC, SELFPAY | END 2022-05-26 23:59 | disposition home or self-care (01) | PROVIDERS: PCP Family Medicine; Visit Provider Internal Medicine Medical Oncology | DX: D50.9 Iron deficiency anemia, unspecified (principal); R53.83 Other fatigue; Z79.899 Other long term (current) drug therapy; R06.09 Other forms of dyspnea; Z79.01 Long term (current) use of anticoagulants | CPT/HCPCS: 82728; 83540; 83550; 85007; 85027; 99214 ==

== ENCOUNTER 2022-06-04 10:23 | Oncology outpatient (recurring) (ONCR) | payer MEDICARE, BC, SELFPAY ==
[2022-06-04 11:19] LABS: Basophils % 0.6 %; Eosinophils # 0.2 10^3/uL (0.0-0.8); Eosinophils % 3.4 %; Hematocrit 37.3 % (37.0-47.0); Hemoglobin 11.6 g/dL (11.5-15.3); Lymphocytes # 0.7 10^3/uL (0.8-4.8); Lymphocytes % 9.7 %; Mean Corpuscular HGB Conc 31.1 g/dL (30.0-36.0); Mean Corpuscular Hemoglobin 33.4 pg (28.0-34.0); Mean Corpuscular Volume 107.5 fl (81-99); Mean Platelet Volume 10.5 fL (7.4-10.4); Monocytes # 0.8 10^3/uL (0.2-0.9); Monocytes % 12.5 %; Neutrophils # 4.95 10^3/uL (1.8-7.7); Neutrophils % 73.5 %; Nucleated Red Blood Cells % 0 %; Platelet Count 331 10^3/cmm (130-400); Red Blood Count 3.47 10^6/uL (4.1-5.3); Red Cell Distribution Width 14.5 % (12.1-15.1); White Blood Count 6.7 10^3/uL (4.0-10.0)
[2022-06-04 11:36] LABS: Ferritin 60 ng/mL (15-150); Iron 40 ug/dL (37-145); Percent Saturation 13.9 % (20-50); Total Iron Binding Capacity 287 mcg/dl; Unsaturated Iron Binding 247 ug/dL (112-347)
== END 2022-06-26 23:59 | disposition home or self-care (01) ==
LOC: LAB 06-21 15:59 → ONCMED 06-27 12:14
PROVIDERS: PCP Family Medicine; Visit Provider Internal Medicine Medical Oncology
DX: D50.9 Iron deficiency anemia, unspecified (principal); R53.83 Other fatigue; R06.09 Other forms of dyspnea; Z79.01 Long term (current) use of anticoagulants; Z79.899 Other long term (current) drug therapy
CPT/HCPCS: 36415; 82728; 83540; 83550; 85025

== ENCOUNTER 2022-07-06 10:00 | Oncology outpatient (recurring) (ONCR) | payer MEDICARE, BC, SELFPAY ==
[2022-06-29] MEDS: sodium chloride 0.9% 250 ML 75 ML IV (09:58)
[2022-06-29] MEDS: ferric carboxy (IVPB) 750 MG in sodium chloride 0.9% (100 ml) 100 ML 345 MG IV (09:58)
[2022-06-29 11:21] VITALS: BP 157/88; PULSE 59; RESP 18; TEMP 36.7; O2SAT 97
== END 2022-07-24 23:59 | disposition home or self-care (01) ==
PROVIDERS: PCP Family Medicine; Visit Provider Internal Medicine Medical Oncology
DX: D50.9 Iron deficiency anemia, unspecified (principal)
CPT/HCPCS: 96365; J1439; J7050

== ENCOUNTER 2022-07-31 11:40 | Oncology outpatient (recurring) (ONCR) | payer MEDICARE, BC, SELFPAY ==
[2022-07-31 12:07] LABS: Basophils % 0.4 %; Eosinophils # 0.3 10^3/uL (0.0-0.8); Eosinophils % 4.4 %; Hematocrit 35.5 % (37.0-47.0); Hemoglobin 11.1 g/dL (11.5-15.3); Lymphocytes # 0.9 10^3/uL (0.8-4.8); Lymphocytes % 12.5 %; Mean Corpuscular HGB Conc 31.3 g/dL (30.0-36.0); Mean Corpuscular Hemoglobin 32.8 pg (28.0-34.0); Mean Platelet Volume 9.9 fL (7.4-10.4); Monocytes # 1.3 10^3/uL (0.2-0.9); Monocytes % 17.7 %; Neutrophils # 4.71 10^3/uL (1.8-7.7); Neutrophils % 64.6 %; Nucleated Red Blood Cells % 0 %; Platelet Count 328 10^3/cmm (130-400); Red Blood Count 3.38 10^6/uL (4.1-5.3); Red Cell Distribution Width 15.6 % (12.1-15.1); White Blood Count 7.3 10^3/uL (4.0-10.0)
[2022-07-31 12:34] LABS: Alanine Aminotransferase 21 U/L (0-33); Albumin Level 3.7 g/dL (3.5-5.2); Alkaline Phosphatase 103 U/L (35-105); Anion Gap 12.5 (5-19); Aspartate Amino Transferase 18 U/L (0-32); Blood Urea Nitrogen 13 mg/dL (8-23); Calcium 9.5 mg/dL (8.5-10.5); Carbon Dioxide 31 mmol/L (22-29); Chloride 102 mmol/L (98-107); Ferritin 241 ng/mL (15-150); Globulin 3.1 g/dL (1.3-4.6); Glomerular Filtration Rate 83.5 mL/min (90-130); Glucose 116 mg/dL (65-115); Iron 33 ug/dL (37-145); Osmolality Calculated 293 mOsm/kg (285-295); Percent Saturation 14.6 % (20-50); Potassium 4.5 mmol/L (3.5-5.1); Sodium 141 mmol/L (136-145); Total Bilirubin 0.3 mg/dL (0.15-1.2); Total Iron Binding Capacity 225 mcg/dl; Total Protein 6.8 g/dL (6.6-8.7); Unsaturated Iron Binding 192 ug/dL (112-347)
== END 2022-08-24 23:59 | disposition home or self-care (01) ==
PROVIDERS: PCP Family Medicine; Visit Provider Internal Medicine Medical Oncology
DX: D50.9 Iron deficiency anemia, unspecified (principal); Z79.899 Other long term (current) drug therapy
CPT/HCPCS: 36415; 80053; 82728; 83540; 83550; 85025

== ENCOUNTER 2022-09-20 11:03 | Oncology outpatient (recurring) (ONCR) | payer MEDICARE, BC, SELFPAY ==
[2022-09-20 11:27] LABS: Basophils % 0.1 %; Hematocrit 41.2 % (37.0-47.0); Hemoglobin 13.3 g/dL (11.5-15.3); Lymphocytes % 4.3 %; Mean Corpuscular HGB Conc 32.3 g/dL (30.0-36.0); Mean Corpuscular Hemoglobin 31.1 pg (28.0-34.0); Mean Corpuscular Volume 96.3 fl (81-99); Mean Platelet Volume 10.3 fL (7.4-10.4); Monocytes # 2.2 10^3/uL (0.2-0.9); Monocytes % 9.5 %; Neutrophils # 19.21 10^3/uL (1.8-7.7); Neutrophils % 84.9 %; Nucleated Red Blood Cells % 0 %; Platelet Count 388 10^3/cmm (130-400); Red Blood Count 4.28 10^6/uL (4.1-5.3); Red Cell Distribution Width 14.1 % (12.1-15.1); White Blood Count 22.6 10^3/uL (4.0-10.0)
[2022-09-20 11:54] LABS: Alanine Aminotransferase 29 U/L (0-33); Albumin Level 3.5 g/dL (3.5-5.2); Alkaline Phosphatase 56 U/L (35-105); Anion Gap 10.3 (5-19); Aspartate Amino Transferase 15 U/L (0-32); Blood Urea Nitrogen 29 mg/dL (8-23); Calcium 8.7 mg/dL (8.5-10.5); Carbon Dioxide 31 mmol/L (22-29); Chloride 99 mmol/L (98-107); Ferritin 176 ng/mL (15-150); Globulin 2.7 g/dL (1.3-4.6); Glomerular Filtration Rate 71.5 mL/min (90-130); Glucose 118 mg/dL (65-115); Iron 156 ug/dL (37-145); Osmolality Calculated 289 mOsm/kg (285-295); Percent Saturation 62.9 % (20-50); Potassium 4.3 mmol/L (3.5-5.1); Sodium 136 mmol/L (136-145); Total Bilirubin 0.4 mg/dL (0.15-1.2); Total Iron Binding Capacity 248 mcg/dl; Total Protein 6.2 g/dL (6.6-8.7); Unsaturated Iron Binding 92 ug/dL (112-347)
== END 2022-09-23 23:59 | disposition home or self-care (01) ==
PROVIDERS: Nurse Practitioner; PCP Family Medicine; Visit Provider Internal Medicine Medical Oncology
DX: D50.9 Iron deficiency anemia, unspecified (principal); Z79.899 Other long term (current) drug therapy
CPT/HCPCS: 80053; 82728; 83540; 83550; 85025; 99213

== ENCOUNTER 2022-12-17 11:30 | Oncology outpatient (recurring) (ONCR) | payer MEDICARE, BC, SELFPAY ==
[2022-12-06 10:21] VITALS: BP 192/74; PULSE 76; RESP 18; TEMP 36.3; O2SAT 94
[2022-12-06 10:42] LABS: Basophils % 0.4 %; Eosinophils # 0.5 10^3/uL (0.0-0.8); Eosinophils % 6.2 %; Hematocrit 23.5 % (37.0-47.0); Hemoglobin 6.8 g/dL (11.5-15.3); Lymphocytes % 11.7 %; Mean Corpuscular HGB Conc 28.9 g/dL (30.0-36.0); Mean Corpuscular Hemoglobin 29.1 pg (28.0-34.0); Mean Corpuscular Volume 100.4 fl (81-99); Mean Platelet Volume 10.3 fL (7.4-10.4); Monocytes # 1.2 10^3/uL (0.2-0.9); Monocytes % 13.7 %; Neutrophils # 5.81 10^3/uL (1.8-7.7); Neutrophils % 67.8 %; Nucleated Red Blood Cells % 0.2 %; Platelet Count 362 10^3/cmm (130-400); Red Blood Count 2.34 10^6/uL (4.1-5.3); Red Cell Distribution Width 18.3 % (12.1-15.1); White Blood Count 8.6 10^3/uL (4.0-10.0)
[2022-12-06 11:50] LABS: Alanine Aminotransferase 19 U/L (0-33); Albumin Level 3.7 g/dL (3.5-5.2); Alkaline Phosphatase 62 U/L (35-105); Anion Gap 13.6 (5-19); Aspartate Amino Transferase 17 U/L (0-32); Blood Urea Nitrogen 12 mg/dL (8-23); Calcium 8.8 mg/dL (8.5-10.5); Carbon Dioxide 29 mmol/L (22-29); Chloride 98 mmol/L (98-107); Ferritin 37 ng/mL (15-150); Globulin 2.7 g/dL (1.3-4.6); Glomerular Filtration Rate 83.5 mL/min (90-130); Glucose 119 mg/dL (65-115); Iron 13 ug/dL (37-145); Osmolality Calculated 285 mOsm/kg (285-295); Percent Saturation 3.3 % (20-50); Potassium 3.6 mmol/L (3.5-5.1); Sodium 137 mmol/L (136-145); Total Bilirubin 0.3 mg/dL (0.15-1.2); Total Iron Binding Capacity 388 mcg/dl; Total Protein 6.4 g/dL (6.6-8.7); Unsaturated Iron Binding 375 ug/dL (112-347)
[2022-12-07] VITALS (9 sets, daily range): BP systolic 130–181; BP diastolic 63–84; PULSE 71–82; RESP 17–20; TEMP 35.5–36; O2SAT 94–96
[2022-12-07] MEDS: diphenhydrAMINE 25 mg Capsule PO (08:01)
[2022-12-07] MEDS: acetaminophen 325 mg Tablet 650 MG PO (08:01)
[2022-12-07] MEDS: sodium chloride 0.9% 250 mL Bag IV (08:12)
[2022-12-07] MEDS: FUROsemide 10 mg/mL SDV 2mL 20 MG IVP (10:08)
[2022-12-17 11:12] VITALS: BP 174/79; PULSE 84; RESP 18; TEMP 35.8; O2SAT 94
[2022-12-17 11:31] LABS: Basophils % 0.6 %; Eosinophils # 0.5 10^3/uL (0.0-0.8); Hematocrit 33.1 % (37.0-47.0); Hemoglobin 9.6 g/dL (11.5-15.3); Lymphocytes # 1.1 10^3/uL (0.8-4.8); Lymphocytes % 15.9 %; Mean Corpuscular Hemoglobin 27.4 pg (28.0-34.0); Mean Corpuscular Volume 94.6 fl (81-99); Mean Platelet Volume 9.8 fL (7.4-10.4); Monocytes % 15.6 %; Neutrophils # 3.98 10^3/uL (1.8-7.7); Neutrophils % 59.7 %; Nucleated Red Blood Cells % 0 %; Platelet Count 512 10^3/cmm (130-400); White Blood Count 6.7 10^3/uL (4.0-10.0)
[2022-12-17] MEDS: ferric carboxy (IVPB) 750 MG in sodium chloride 0.9% (100 ml) 100 ML 345 MG IV (14:45)
[2022-12-17 15:30] VITALS: BP 146/76; PULSE 76; RESP 18; TEMP 35.9; O2SAT 94
== END 2022-12-24 23:59 | disposition home or self-care (01) ==
PROVIDERS: Nurse Practitioner Family; PCP Family Medicine; Visit Provider Internal Medicine Medical Oncology
DX: D50.9 Iron deficiency anemia, unspecified (principal)
CPT/HCPCS: 36430; 80053; 82728; 83540; 83550; 85025; 86850; 86900; 86920; 96365; 96374; J1439; J1940; J7050; P9016

== ENCOUNTER 2023-01-14 06:06 | Outpatient (CLI) | payer MEDICARE, BC, SELFPAY ==
--- NOTE | 2023-01-12 12:00 | PETR_ITS ---
PROCEDURE INFORMATION: Exam: PET/CT Skull Base to Mid-thigh Exam date and time: 01/12/2023 12:45 PM Age: 67 years old Clinical indication: Abnormal findings; Pulmonary nodule; Additional info: Abnormal CT, recommending pet, lung nodule LABS AND CLINICAL REPORTS: Glucose: 130 mg/dl Treatment strategy for malignancy (PET staging): Initial Staging (PI) TECHNIQUE: Imaging protocol: Following at least four-hour fasting and following the injection of radiopharmaceutical, low dose CT images were obtained. Then, PET images were obtained. Attenuation corrected images were constructed using the CT scan. Fused images of PET and CT were reviewed. The standardized uptake values (SUV) reported below are maximum values within a region of interest, expressed in gm/ml. Exam includes orbital meatal line to mid-thigh. Radiopharmaceutical: 11.49 mCi F-18 FDG (Fluorodeoxyglucose), IV. Time of imaging post radiopharmaceutical administration: 1 hour Injection site: Left antecubital COMPARISON: [place] [id number] 12/23/2019 2:48 PM, chest CT report 05/13/2009 FINDINGS: Brain: Visualized brain has normal physiologic uptake. Pharynx: No abnormal uptake. Larynx: No abnormal uptake. Lungs, pleura and trachea: A solid noncalcified slightly spiculated right lower lobe nodule measuring 2.8 x 2.0 cm in the right lower lobe is noted, SUV max 7.2. Heart: Normal physiologic uptake. Mediastinal space: No abnormal uptake. Diaphragm: Large hiatal hernia. Liver: No abnormal uptake. Gallbladder and bile ducts: No abnormal uptake. Pancreas: No abnormal uptake. Spleen: No abnormal uptake. Adrenal glands: No abnormal uptake. Kidneys and ureters: A non radiotracer avid exophytic 1.8 cm in diameter fluid density structure arises from the superior pole of the left kidney compatible with a benign cyst. Unremarkable right kidney. Stomach and bowel: No abnormal uptake. There are scattered colonic diverticula. Uptake in the region of the distal rectum is likely physiologic, SUV max 7.1. Vasculature: No abnormal uptake. Lymph nodes: No abnormal uptake. Mildly prominent non radiotracer avid precarinal lymph node measuring 1.8 x 1.1 cm on series 3, image 47. Bones/joints: No abnormal uptake in the visualized axial and appendicular skeleton. There is mild diffuse vertebral body spondylosis. Soft tissues: There is benign-appearing likely inflammatory uptake in the musculature posterior to the left scapular body. Benign-appearing, likely inflammatory uptake is noted within streaky density in the subcutaneous fat of the left gluteal region, SUV max 4.1. Elevated uptake in the bilateral gluteus medius muscles is greatest on the left, SUV max 5.5 without evidence of a correlating lesion on the CT images, also likely inflammatory. METRICS: Mediastinal blood pool: SUV max 2.5 [facility] INIT[facility] 43375 IMPRESSION: 1. A solid right lower lobe nodule is radiotracer avid (SUV max 7.2) concerning for malignancy. 2. Large hiatal hernia. 3. Simple appearing left renal cyst. No follow-up is necessary. 4. Colonic diverticulosis. 5. Additional nonurgent findings as detailed above.
== END 2023-01-14 06:07 | disposition home or self-care (01) ==
LOC: RAD 06:07
PROVIDERS: PCP Family Medicine; Visit Provider Internal Medicine Medical Oncology
DX: R91.1 Solitary pulmonary nodule (principal); K44.9 Diaphragmatic hernia without obstruction or gangrene; N28.1 Cyst of kidney, acquired; K57.90 Diverticulosis of intestine, part unspecified, without perforation or abscess without bleeding; R59.0 Localized enlarged lymph nodes
CPT/HCPCS: 78815; A9552

== ENCOUNTER 2023-01-24 10:43 | Oncology outpatient (recurring) (ONCR) | payer MEDICARE, BC, SELFPAY ==
--- OUTSIDE RECORDS SUMMARY | 2022-12-31 13:33 | XMS_ITS | Patient Health Record ---
Author Name Unknown Organization [facility] Address [address] [place] [address] Care Team Providers Care Pearl Hand Name Role Phone Madi Reeves Primary Care Provider UnavailErin Canales Unavailable [phone] CAMPLANCE Unavailable Unavailable Lance Castellanos Unavailable [phone] Keith Youngblood Unavailable [phone] LaurelEdyta costa Unavailable [phone] ALLERGIES No Known Allergies RESULTS Component Value Reference Range Notes Thyroid Stimulating Hormone (TSH) 11222 Reviewed date:03/07/2022 04:09:00 PM Interpretation: Performing Lab: Notes/Report: TSH 2.195 .358-3.740 MlU/ML Comprehensive Metabolic Pane l 55498 Reviewed date:03/07/2022 04:09:00 PM Interpretation: Performing Lab: Notes/Report: Glucose Serum 100 71-110 MG/DL BUN 12 7-21 MG/DL Creat .74 .51-1.17 MG/DL D-jagbtr-i-benzoquinone imine (NAPQI) is a metabolite of acetaminophen, NAPQI concentrations of apparoximately 10 mg/L correlation to toxic levels of acetaminophen demonstrates a greater than or equil to 10% change in results. NAPQI concentrations greater than this may lead to falsely depressed results for patient samples. Use of this assay is not recommended for patients undergoing treatment with phenindione, due to the potential for falsely depressed results. GFR 88.7 Calculation per formed from GFR calculator provided by the [employer]. Glomerular Filtration rate(GRF) is the best overall index of kidney function. Normal GFR varies according to age,sex, body size, and declines with age. The National [employer] recommends using the CKD-EPI Creatinine Equation(2009) to estimate GFR. BUN/Creat Ratio 16.2 12.0-20.0 % Total Protein 6.8 5.8-8.0 G/DL Albumin 3.8 3.2-4.8 G/DL Globulin 3.0 2.3-3.5 G/DL Alb/Glob 1.3 0.8-2.2 Calcium 9.6 8.7-10.4 MG/DL Sodium 137 136-145 MMOL/L Potassium 3.7 3.5-5.1 MMOL/L Chloride 99 98-107 MMOL/L CO2 31.4 20.0-31.0 MMOL/L Anion Gap 10 5-15 Alk Phos 91 46-116 Bili Total .5 .3-1.2 MG/DL Use of this ass ay is not recommended for patients undergoing treatment with eltrombopag due to the potential for falsely elevated results. AST/SGOT 25 15-37 UNIT/L ALT/SGPT 24 12-78 UNIT/L Osmo Serum,Calculated 284 280-300 MOSM/KG REASON FOR REFERRAL Reason Sob, Abnormal PFT in october, on amiodarone therapy history of interstitial lung disease PFT Scheduled 08/03/22 - Appt Scheduled 09/20 @ 2: 20 PM Diagnosis 1 Shortness of breath (R06.02) Referring Provider First Name Lance Referring Provider Last Name Emanuel Referring Provider Speciality Cardiology Referred Organization [facility] Referred Provider Erin Marcelo Referred Address [address] [place] [address] Dr Pierre mireles ,[place], [place],[address], Referred Provider Specialty Pulmonary Di seases General Notes Carrie Snider 023 03:19:44 PM >PFT Scheduled 08/03 @ 10:00 AM. Patient stated that she would like PFT done and Dr. Castellanos go over the results before establishing with another provider. Stated if Dr. Castellanos thinks she needs to see Radio Adjuster after PFT, then she will make appt., Carrie Snider 08/29/2022 09:15:19 AM >Called pt to had spoken to Dr. Castellanos and if he had gone over PFT. She said she didn't think so. Was able to schedule her an appt w/ Dr. Marcelo. Scheduled for 09/20 @ 2:20 PM Referral Priority Routine Reason Sob, Abnormal PFT in october, on amiodarone therapy history of interstitial lung disease Diagnosis 1 Shortness of breath (R06.02) Referral Organization [facility] Referring Provider First Name Lance Referring Provider Last Name Hawthorne Referring Provider Speciality Cardiology Referred Organization [facility] Referred Provider Erin Marcelo Referred Address [address] [place] [address] Dr Pierre mireles ,[place],[address],[place] Referred Provider Specialty Pulmonary Dianna ray Referral Priority Routine Referral Appointment Date 09/20/2022 MEDICATIONS Medication SIG (Take, Route, Frequency, Duration) Notes Start Date End Date Status Methotrexate 2.5 MG 6 tablets Orally Saturday Active Metoprolol Succinate ER 200 MG 1 tablet Orally Once a day Active Omeprazole 20 MG 1 capsule 30 minutes before morning meal Orally twice a day Active Zinc 50 MG 1 tablet Orally Once a day Active Multivitamin Active Vitamin C 1000 MG 1 tablet Orally tw e a day Active Fluticasone Propionate 50 MCG/ACT 1 spray in each nostril Nasally Once a day Active Vitamin D3 25 MCG (1000 UT) 1 tablet Ora lly Once a day Active Dextromethorphan-guaiFENesi n 10-100 MG/5ML 10 mL as needed Orally every 4 hrs Active Bumetanide 1 MG 1 tablet Orally As n eeded for 2-3lbs wt gain in 24 hours for 30 days Active Albuterol Sulfate 1.25 MG/3ML 3 mL as needed Inhalation every 8 hrs Active Xarelto 20 MG 1 tablet with food O rally Once a day Active Folic Acid Active Losartan Potassium-HCTZ 100-25 MG 1 tablet Orally Once a day Active SOCIAL HISTORY Tobacco Use: Social History Observation Description Date Details (start date - stop date) Never Smoker NA - NA Sex Assigned At : Social History Observation Description Sex Assigned At Unknown Tobacco Use/Smoking Question Answer Notes Are you a nonsmoker Alcohol Screen (Audit-C) Question Answer Notes Did you have a drink contain ing alcohol in the past year? Yes How often did you have a dri nk containing alcohol in the past year? Monthly or less (1 point) Points 1 Interpretation Negative PROBLEMS Problem Type ICD Code Onset Dates Problem Status W/U Status Risk SNOMED Code Notes Problem Essential (primary) hypertension (I10) Active confirmed Essential hypertension (66299969) Problem Nonrheumatic tricuspid (valve) insufficiency (I36.1) Active confirmed Tricuspid valve disorder, non-rheumatic (963072975) Problem Paroxysmal atrial fibrillation (I48.0) Active confirmed 483824829 Problem Dependence on supplemental oxygen (Z99.81) Active confirmed Dependence o n supplemental oxygen (659689580247) Problem BMI 40.0-44.9, adult (Z68.41) Active confirmed Body mass ind ex 40+ - morbidly obese (493467030) Problem Chronic anticoagulation (Z79.01) Active confirmed 728188253 Problem Morbid obesity (E66.01) Active confirmed Morbid obesity (946705092) Problem GERD (gastroesophageal reflux disease) (K21.9) Active confirmed Gastroesophagea l reflux disease (305677448) Problem Nonrheumatic mitral valve regurgitation (I34.0) Active confirmed Non-rheumatic mitral regurgitation (574090408) Problem Chronic venous insufficiency (I87.2) Active confirmed Chronic venous insufficiency (47001878) Problem Diastolic heart failure, unspecified HF chronicity (I50.30) Active confirmed Diastolic heart failure (526900306) Problem 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) Active confirmed Disorders of ran th mitral and tricuspid valves (624106237) VITAL SIGNS Heart Rate 64 /min 10/04/2022 Temperature 96.9 degrees Fahrenheit 10/04/2022 Respiratory Rate 18 /min 10/04/2022 Oximetry 97 % 10/04/2022 Blood pressure diastolic 81 mm Hg 10/04/2022 Weight-kg 105.1 kg 10/04/2022 Height 63 in 10/04/2022 Blood pressure systolic 151 mm Hg 10/04/2022 Weight 231.7 lbs 10/04/2022 BMI 41.04 kg/m2 10/04/2022 PROCEDURES Procedure Date Ordered Date Performed Result Body Sit e Electrical Cardioversion 02/26/2022 02/28/2022 N/A PFT with FRC: (NO TGV) 08/03/2022 08/03/2022 N/A Encounters Encounter Location Date Provider Diagnosis [facility] [address] [place] [address], [place] [address] 01/25/2022 [facility] [address] [place] [address] 01/26/2022 Edyta Roe [facility] [address] [place] [address] 02/01/2022 [facility] [address] [place] [address], [place] [address] 02/26/2022 [facility] [address] [place] [address], [place] [address] 02/26/2022 [facility] [address] [place] [address] 02/26/2022 [facility] [address] [place] [address], [place] [address] 08/08/2022 [facility] Paroxysmal atrial fibrillation I48.0 [facility] [address] [place] [address], [place] [address] 08/08/2022 [facility] [address] [place] [address], [place] [address] 08/09/2022 [facility] [address] [place] [address], [place] [address] 09/11/2022 [facility] [address] [place] [address], [place] [address] 09/13/2022 Keith Youngblood [facility] [address] [place] [address] Dr [address] [place] [address] 09/17/2022 Erin Marcelo [facility] [address] [place] [address] Dr Joya [address] [place] [address], [place] [address] 08/03/2022 [facility] [address] [place] [address], [place] [address] 09/26/2022 [facility] [address] [place] [address], [place] [address] 09/26/2022 [facility] [address] [place] [address] Dr [address] [place] [address], [place] [address] 09/20/2022 Erin Marcelo Shortness of breath R06.02 and Abnormal PFT R94.2 [facility] [address] [place] [address], [place] [address] 09/24/2022 Edyta Jyothi Paroxysmal atrial fibrillation I48.0 ; Essential (primary) hypertension I10 ; Shortness of breath R06.02 ; Bradycardia R00.1 ; History of deep vein thrombosis Z86.718 ; Chronic anticoagulation Z79.01 ; History of COVID-19 Z86.16 and emt intermediate current use of antithrombotics/antipl atelets Z79.02 [facility] [address] [place] [address], [place] [address] 01/25/2022 Edyta Laurel Persistent atrial fibrillation I48.19 ; Shortness of breath R06.02 ; Essential (primary) hypertension I10 and Chronic anticoagulation Z79.[address] [place] [address] 04/10/2022 Edyta Laurel Essential (primary) hypertension I10 ; Paroxysmal atrial fibrillation I48.0 ; Premature atrial contractions I49.1 ; On amiodarone therapy Z79.899 ; History of deep vein thrombosis Z86.718 ; Chronic anticoagulation Z79.01 and History of COVID-19 Z86.16 [facility] [address] [place] [address] 07/30/2022 [facility] Paroxysmal atrial fibrillation I48.0 ; Essential (primary) hypertension I10 ; Nonrheumatic mitral valve regurgitation I34.0 ; Nonrheumatic tricuspid (valve) insufficiency I36.1 ; Shortness of breath R06.02 ; jail current use of antithrombotics/antipl atelets Z79.02 and emt intermediate current use of amiodarone Z79.899 [facility] [address] [place] [address] 02/26/2022 Edytaanastacio Roe Persistent atrial fibrillation I48.19 ; Essential (primary) hypertension I10 ; Chronic venous insufficiency I87.2 ; History of deep vein thrombosis Z86.718 ; Shortness of breath R06.02 ; History of COVID-19 Z86.16 ; Chronic anticoagulation Z79.01 and emt intermediate current use of amiodarone Z79.899 [facility] [address] [place] [address] 08/03/2022 [facility] [address] Joya [address] [place] [address], [place] [address] 10/04/2022 Erin Marcelo Shortness of breath R06.02 ; GERD (gastroesophageal reflux disease) K21.9 ; Morbid obesity E66.01 and BMI 40.0-44.9, adult Z68.41 [facility] [address] [place] [address] 08/03/2022 Erin Marcelo Shortness of breath R06.02 [facility] [address] [place] [address] 03/07/2022 Lance Castellanos [facility] [address] [place] [address] 03/07/2022 Lance Castellanos Other persistent atrial fibrillation I48.19 ASSESSMENTS Encounter Date Diagnosis Assessment Notes Treatment Notes Treatment Clinical Notes 09/20/2022 Shortness of breath (ICD-10 - R06.02) 09/20/2022 Abnormal PFT (ICD-10 - R94.2) 09/24/2022 Essential (primary) hypertension (ICD-10 - I10) Blood pressure today was elevated patient was asked to keep a log of blood pressure and heart rate. We will make additional adjustments based on these findings. Low-sodium diet was encouraged. 09/24/2022 Paroxysmal atrial fibrillation (ICD-10 - I48.0) Patient is currently maintaining sinus rhythm. Warfarin therapy is being monitored by PCP. Worsening cardiac symptoms to report reviewed. 07/30/2022 Paroxysmal atrial fibrillation (ICD-10 - I48.0) 08/03/2022 Shortness of breath (ICD-10 - R06.02) 08/08/2022 Paroxysmal atrial fibrillation (ICD-10 - I48.0) 10/04/2022 Shortness of breath (ICD-10 - R06.02) The patient is using Breztri and Albuterol in the nebulizer. She is no longer wheezing and feeling better. 10/04/2022 GERD (gastroesophageal reflux disease) (ICD-10 - K21.9) She has been advised to continue Omeprozole daily. She is to elevate the head of the bed 2-4 inches with no food or drinks at least 2 hours before bed time. 01/25/2022 Shortness of breath (ICD-10 - R06.02) 01/25/2022 Persistent atrial fibrillation (ICD-10 - I48.19) Patient fortunately has had recurrence of atrial fibrillation. Again we are going to start her on amiodarone therapy as previously recommended by Dr. Castellanos. Again indications and risk of this therapy were reviewed. Patient is in agreement with rhythm taoism. Again side effects include but are not limited to effects to the eyes, lungs, thyroid, and liver. If patient fails to chemically cardiovert in 4 weeks and we will be setting patient up for electrical cardioversion. We will have patient complete weekly INRs to assist in getting her potentially scheduled for electrical cardioversion. 02/26/2022 Essential (primary) hypertension (ICD-10 - I10) 02/26/2022 Persistent atrial fibrillation (ICD-10 - I48.19) Patient has been recommended for electrial cardioversion. Indications and risks of this procedure were reviewed. These include but are not limited to irritation to the skin from defib pads, multiple shocks, oversedation, potential need for temporary pacemaker, stroke, , and potential for unsuccessful cardioversion. Despite these risks the patient wishes to proceed. They verbalize understanding and deny any additional questions or concerns. Potential side effects of amiodarone therapy were reviewed. These include but are not limited to effects to the eyes, lungs, thyroid, and liver. Patient has had baseline pulmonary function studies which revealed mild diffusion deficits. We will recheck thyroid and CMP evaluation when patient comes in for her electrical cardioversion 03/07/2022 Other persistent atrial fibrillation (ICD-10 - I48.19) 04/10/2022 Essential (primary) hypertension (ICD-10 - I10) Blood pressure today is mildly elevated. Goal blood pressure was reviewed. We will continue with metoprolol and losartan HCTZ 04/10/2022 Paroxysmal atrial fibrillation (ICD-10 - I48.0) Patient is currently maintaining sinus rhythm. We will go ahead and decrease her amiodarone to 1 tablet daily. The importance of warfarin therapy was stressed. Her levels are being followed by primary care 07/30/2022 Essential (primary) hypertension (ICD-10 - I10) 04/10/2022 Premature atrial contractions (ICD-10 - I49.1) 02/26/2022 Chronic venous insufficiency (ICD-10 - I87.2) 01/25/2022 Essential (primary) hypertension (ICD-10 - I10) 07/30/2022 Nonrheumatic mitral valve regurgitation (ICD-10 - I34.0) 10/04/2022 Morbid obesity (ICD-10 - E66.01) Goal BMI is less than 25 which can be obtained through increased physical activity and nutritional modifications. 09/24/2022 Shortness of breath (ICD-10 - R06.02) 10/04/2022 BMI 40.0-44.9, adult (ICD-10 - Z68.41) 09/24/2022 Bradycardia (ICD-10 - R00.1) 01/25/2022 Chronic anticoagulation (ICD-10 - Z79.01) 02/26/2022 History of deep vein thrombosis (ICD-10 - Z86.718) 07/30/2022 Nonrheumatic tricuspid (valve) insufficiency (ICD-10 - I36.1) 04/10/2022 On amiodarone therap y (ICD-10 - Z79.899) Potential side effects of amiodarone reviewed these include but not limited to effects to the eyes, lungs, thyroid, and liver. Patient had baseline pulmonary function studies which revealed mild diffusion deficit. Baseline TSH and CMP evaluations were within normal limits. We will plan to recheck these in 3 months. 04/10/2022 History of deep vein thrombosis (ICD-10 - Z86.718) 02/26/2022 Shortness of breath (ICD-10 - R06.02) 09/24/2022 History of deep vein thrombosis (ICD-10 - Z86.718) 07/30/2022 Shortness of breath (ICD-10 - R06.02) 07/30/2022 emt intermediate current us e of antithrombotics/antip latelets (ICD-10 - Z79.02) 09/24/2022 Chronic anticoagulation (ICD-10 - Z79.01) Warfarin is followed by primary care 02/26/2022 History of COVID-19 (ICD-10 - Z86.16) 04/10/2022 Chronic anticoagulation (ICD-10 - Z79.01) Warfarin is followed by primary care 04/10/2022 History of COVID-19 (ICD-10 - Z86.16) 02/26/2022 Chronic anticoagulation (ICD-10 - Z79.01) 09/24/2022 History of COVID-19 (ICD-10 - Z86.16) 07/30/2022 jail current us e of amiodarone (ICD-10 - Z79.899) 09/24/2022 emt intermediate current us e of antithrombotics/antip latelets (ICD-10 - Z79.02) 02/26/2022 emt intermediate current us e of amiodarone (ICD-10 - Z79.899) 09/20/2022 Other The patient was instructed to follow up with their PCP for preventive health screenings. IAgata, am scribing for, and in the presence of Dr. Erin Marcelo. I, Dr. Erin Marcelo, personally performed services described in this document, as scribed by Agata Dyer in my presence, and is both accurate and complete. 10/04/2022 Other The patient was instructed to follow up with their PCP for preventive health screenings. I, Agata Deyr, am scribing for, and in the presence of Dr. Erin Marcelo. I, Dr. Erin Marcelo, personally performed services described in this document, as scribed by Agata Dyer in my presence, and is both accurate and complete. 01/25/2022 Other Supervising physician in clinic today is Dr. Roberts 02/26/2022 Other Supervising physician in clinic today is Dr. Castellanos 04/10/2022 Other Supervising physician in clinic today is Dr. Castellanos 07/30/2022 Other Medical decisio n making process: At this point we will get a go ahead and cut the amiodarone down to 1 mg a day or half a tablet daily.2. We will get her referred to the senior partner she had a PFT done in October and had a dense indication of some restriction issues and also some diffusion problems. Concerned it may be a side effect of methotrexate3. We will have her return to clinic here in [address] Marcelo is unimpressed with the pulmonary function test or the symptoms are out of proportion to the PFT we will look for heart cath station to definitively make sure ischemic etiology is not present. Look for come back in 2 months. EKG today shows sinus rhythm with right axis deviation borderline abnormal EKG PLAN OF TREATMENT Pending Test Test Name Order Date Comprehensive Metabolic Panel 47529 1007/2021 Potassium (B) 85892 10/30/2021 Potassium (B) 67428 12/07/2021 Thyroid Stimulating Hormone (TSH) 60525 02/26/2022 Electrocardiogram 12 Lead Tracing-17102 02/26/2022 Electrocardiogram 12 Lead Tracing-24366 10/30/2021 Electrocardiogram 12 Lead Tracing-00907 12/07/2021 PFT SpHb-[id number] 07/30/2022 Electrocardiogram (EKG) - 79432 09/25/19 23 Electrocardiogram (EKG) - 93794 02/27/20 22 Electrocardiogram (EKG) - 48628 04/10/20 22 Electrocardiogram (EKG) - 98812 07/31/19 23 Electrocardiogram (EKG) - 42827 12/28/19 22 Electrocardiogram (EKG) - 29810 03/07/20 Electrocardiogram (EKG) - 68795 10/31/19 22 Electrocardiogram (EKG) - 50045 01/26/20 22 PFT with DLCO 10/30/2021 Prothrombin Time with INR (PT/INR) 10/30 Prothrombin Time with INR (PT/INR) 01/25 Future Test Test Name Order Date Comprehensive Metabolic Panel 57513 06/27 Thyroid Stimulating Hormone (TSH) 25334 07/09/2022 Next Appt Details Provider Name:Edyta jimenez, 01/10/2023 01:00:00 PM, [address], [address], Provider Name:Erin Marcelo, 01/10/2023 02:00:00 PM, [address] [place] [address], [phone], Insurance Providers Payer Name Payer Address Payer Phone Subscriber Number Group Number Insured Name Patient Relationship to Insured Coverage Start Date Coverage End Date [place] [address] [place] [phone] [id number] Marsha Husain Self - patient is the insured 0 [employer] [place] [address] [phone] [id number] Marsha Husain Self - patient is the insured 0 MEDICAL (GENERAL) HISTORY Medical History History ICD Code Problem:Hypertensive disorde r, systemic arterial (disorder) , Status :: Active Problem:Iron deficiency anemia (disorder ) , Status :: Active History of DVT in 2001 Chronic Venous Insuff Covid vaccination x 2 Covid positive 05/2021 Surgical History Surgery Date(Month/Year) [facility] - ECV 03/07/22 ECV 12/2021 Ulcer sx, (bleeding ulcer) Carpal tunnel surgery bilateral Hospitalization History Reason Date(Month/Year) [facility] - SOB and CHF was hospitalized 6 days 09/17/22 [facility] 03/07/22 [facility] - V 12/2021
[2022-12-31 14:18] VITALS: BP 147/79; PULSE 76; RESP 18; TEMP 35.7; O2SAT 95
[2022-12-31] MEDS: sodium chloride 0.9% 250 ML 75 ML IV (14:27)
[2022-12-31] MEDS: ferric carboxy (IVPB) 750 MG in sodium chloride 0.9% (100 ml) 100 ML 345 MG IV (14:27)
[2022-12-31 15:00] VITALS: BP 114/70; PULSE 72; RESP 18; TEMP 35.8; O2SAT 72
[2023-01-24 11:00] VITALS: BP 173/88; PULSE 69; RESP 16; TEMP 36.4; O2SAT 94
[2023-01-24 11:10] LABS: Basophils % 0.3 %; Eosinophils # 0.3 10^3/uL (0.0-0.8); Eosinophils % 4.8 %; Hematocrit 38.4 % (36-47); Lymphocytes # 0.8 10^3/uL (0.8-4.8); Lymphocytes % 13.8 %; Mean Corpuscular Hemoglobin 31.5 pg (27-33); Mean Corpuscular Volume 101.6 fl (85-98); Mean Platelet Volume 9.9 fL (7.4-10.4); Monocytes # 0.8 10^3/uL (0.2-0.9); Neutrophils # 3.87 10^3/uL (1.8-7.7); Neutrophils % 66.9 %; Nucleated Red Blood Cells % 0 %; Platelet Count 286 10^3/cmm (157-399); Red Blood Count 3.78 10^6/uL (3.85-5.65); Red Cell Distribution Width 19.5 % (12.1-15.1); White Blood Count 5.79 10^3/uL (3.29-11.43)
== END 2023-01-24 23:59 | disposition home or self-care (01) ==
PROVIDERS: Internal Medicine Medical Oncology; PCP Family Medicine; Visit Provider Internal Medicine Medical Oncology
DX: D50.9 Iron deficiency anemia, unspecified (principal); Z79.899 Other long term (current) drug therapy
CPT/HCPCS: 36415; 85025; 96365; 99214; J1439; J7050

== ENCOUNTER → 2023-01-29 13:39 | Outpatient (BNVA) | payer MEDICARE, BC, SELFPAY | PROVIDERS: PCP Family Medicine; Visit Provider Internal Medicine Pulmonary Disease | DX: R06.02 Shortness of breath (principal); R91.8 Other nonspecific abnormal finding of lung field | CPT/HCPCS: 99204 ==

== ENCOUNTER 2023-02-05 06:00 | Day surgery (SDC) | payer MEDICARE, BC, SELFPAY ==
[2023-02-04 14:27] VITALS: BMI 39.6
[2023-02-05] VITALS (15 sets, daily range): BP systolic 88–154; BP diastolic 56–83; PULSE 86–120; RESP 14–26; TEMP 36.1–36.6; O2SAT 92–99
--- NOTE | 2023-02-05 06:30 | ECG_ITS ---
[facility] Test Date: 2023-02-05 Pat Name: Marsha Husain Department: Room: Gender: Female Rn Gyn: : 1955 Requested By: Albert Ochoa Order Number: [id number] Bipin MD: Beto Hernández M.D. Measurements Intervals [place] Rate: 129 P: 0 MD: 0 QRS: 63 QRSD: 85 T: 22 QT: 310 QTc: 455 Interpretive Statements ATRIAL FIBRILLATION WITH RAPID VENTRICULAR RESPONSE LOW QRS VOLTAGE IN PRECORDIAL LEADS [QRS DEFLECTION < 1.0 mV IN CHEST LEADS] POSSIBLE RIGHT VENTRICULAR CONDUCTION DELAY [RSR (QR) IN V1/V2] MINIMAL ST DEPRESSION [0.025+ mV ST DEPRESSION] No previous ECG available for comparison Electronically Signed On 02-05-2023 9:48:35 CDT by Beto Hernández M.D. [id number]
--- NOTE | 2023-02-05 06:36 | CT_ITS ---
WS: [id number] CT chest ION (PULM ONLY) [id number] HISTORY: FOR BRONCHOSCOPY GUIDED BIOPSIES TECHNIQUE: Axial imaging performed through the thorax. . All CT scans at [facility] use at ast one of these dose optimization techniques: automated exposure control; mA and/or kV adjustment pe r patient size (includes targeted exams where dose is matched to clinical indication); or iterative r econstruction. CONTRAST: None. DLP: 619.21 mGy COMPARISON: PET/CT 01/12/2023 Cavitary nodule in the RIGHT lower lobe abuts the fissure. Nodule measures 2.5 x 2.0 cm. There are ad ditional scattered opacifications and nodules throughout both lungs. The spiculations and nodules rubens ear to have progressed since the PET/CT suggesting these are probably postinflammatory. Numerous mediastinal and hilar lymph nodes. The largest lymph node is inferior RIGHT paratracheal cordell suring 1.6 cm. Mild enlargement the pulmonary artery. Mild atherosclerosis aorta. Stomach is nearly c ompletely intrathoracic. 1.6 cm cyst upper pole LEFT kidney. IMPRESSION: 1. Cavitary nodule RIGHT lower lobe was PET/CT positive measuring 2.5 x 2.0 cm. 2. Mediastinal and hilar lymph nodes. The largest at 1.6 cm. Lymph nodes were not positive on the PET /CT. 3. Increasing opacifications and spiculations throughout both lungs as compared to the PET/CT. Due to the recent change suspect these additional opacifications may be inflammatory.
[2023-02-05 06:50] LABS: Glucose Point of Care 101 mg/dL (70-110)
[2023-02-05] MEDS: sodium chloride 0.9% 1,000 ML 30 ML IV (07:01)
--- NOTE | 2023-02-05 07:02 | SC_ITS ---
WS: [id number] Exam: C-arm FL for Bronchoscopy Date/Time of Exam: 02/05/2023 7:02 AM Reason For Exam: RT LOWER LOBE MASS 2 intraoperative anterior posterior C-arm images of the RIGHT chest are submitted. The image of the lower chest depicts a bronchoscope in place ending in the region of the RIGHT lower lung zone. Image was obtained for intraoperative purposes.
--- NOTE | 2023-02-05 07:09 | W.PM.OPSUD ---
Surgery/Procedure H&P Update DATE OF PROCEDURE: February 05, 2023 DATE H&P PERFORMED: 01/29/23 H&P UPDATE INFORMATION: I have reviewed H&P completed within last 30 days, I have examined patient prior to procedure and No changes to prior documentation CHANGES TO PREVIOUS DOCUMENTATION: More wheezing today and will receive duoneb prior to procedure PREOP DIAGNOSIS: suspected malignancy PRIMARY INDICATION FOR PROCEDURE: PET Positive right lower lobe nodule - biopsies to rule out malignancy PLANNED PROCEDURE: Operation Date: 02/05/23 07:20 Proposed Procedures p Bronch, EBUS, 07913, 51965, 64248, 20886, 46718, 02400, 33609, 51019, 41241, 46098, 85068, 52309, 05012, 90545,R91.8(Not Applicable) - Tavares Greenberg MD s Ebus(Not Applicable) - Tavares Greenberg MD
[2023-02-05] MEDS: ipratropium-albuterol 3 mL Neb INHALATION ×2 (07:10→10:07)
[2023-02-05 07:19] LABS: Anion Gap 14.3 (5-19); Blood Urea Nitrogen 18 mg/dL (8-23); Calcium 9.3 mg/dL (8.5-10.5); Carbon Dioxide 28 mmol/L (22-29); Chloride 98 mmol/L (98-107); Glomerular Filtration Rate 71.5 mL/min (90-130); Glucose 102 mg/dL (65-115); Osmolality Calculated 286 mOsm/kg (285-295); Potassium 3.3 mmol/L (3.5-5.1); Sodium 137 mmol/L (136-145)
[2023-02-05] MEDS: lidocaine 1% INJ 10 mL (per mL) XX (07:40)
[2023-02-05 08:36] LABS: Apprearance, Bronch Wash Cloudy (CLEAR); Color, Bronc Wash Slight Pink; Cyto Order Verification Order Verified
[2023-02-05 08:37] LABS: Bronch Source Right Lower Lobe; PATH Referral Yes
[2023-02-05] MEDS: EPINEPHrine 1 mg/mL INJ XX (09:10)
--- NOTE | 2023-02-05 09:30 | XR_ITS ---
WS: [id number] Exam: XR chest 1V portable [id number] Date/Time of Exam: 02/05/2023 9:30 AM Reason For Exam: POST ION/EBUS Compared to the last chest radiograph performed 06/15/[address] scan performed on the same day . 3 cm soft tissue mass noted in the RIGHT lower lobe apparently represents the patient's known maligna ncy. Extensive reticular nodular pattern noted throughout both lungs. This may be acute or chronic. M ild cardiac enlargement. The mediastinum is normal in contour for technique. No pleural effusion or p neumothorax. Bony structures are intact. IMPRESSION: 1. 3 cm mass in the RIGHT lower lung zone apparently representing the patient's known malignancy. 2. Diffuse reticular nodular pattern seen throughout both lungs that may represent chronic change or interstitial pneumonia or pulmonary edema. Lymphatic metastatic disease can have this appearance.
--- NOTE | 2023-02-05 09:39 | PM.OP ---
Operative Report Date of procedure: February 05, 2023 Pre-op diagnosis: PET active lung lesion-suspicious for malignancy Post-op diagnosis: Same Procedure done: Procedure: 53341 Dx Bronchoscope w/Washings or airway inspection 70615 Bx Bronchoscope w/Brushings or protected brushings? 79753 Dx Bronchoscope w/BAL 22201 Bronch with computer image guided Navigational Bronchoscopy 46418 Bronchoscopy w/Transbronchial lung biopsy(s), single lobe 49931 Bronchoscopy w/Transbronchial needle aspiration biopsy(s), tracheal, main stem, and/or lobar bronchus 98405 Bronchoscopy w/ therapeutic aspiration of the tracheobronchial tree (clearance of airway secretions, removal of mucus plugs) 42561 EBUS Sampling >=3 nodes 74658 EBUS Diag or Interven Peripheral lesion (radial EBUS) ? Surgeon: Tavares Greenberg MD Brief History: Ms. Marsha Husain is a 67-year-old female with past medical deficiency chronic iron deficiency anemia referred by Dr. Bennett oncology for eval and treat Pet positive lung mass. Patient reported having COVID may 2021 - and since then she had A.fib and had 1st cardioversion in December 2021 [facility] by Dr. Lundberg; 2nd cardioversion in FEB 2022; her rythm reverted and did not need any other cardioversions. She was admitted to [facility] in August 2022 for severe bronchitis and treated with antibx and steroids. At that time she had a Ct chest in [facility] 09/11/22 - showed - bilateral GGOS - enlarged lymphnodes. repeat CT chest 12/21/22: Showed development of 2.4 x 2.5 cm lobulated mass in the right lower lobe with additional nodule in the right lung base concerning for developing malignancy.? There are enlarged mediastinal and right hilar adenopathy concerning for metastatic involvement. PET/CT 01/12/2023:A solid right lower lobe nodule is radiotracer avid (SUV max 7.2) concerning for malignancy. Large hiatal hernia-She is at risk of significant aspiration pneumonia She was referred by her biological science technician Dr. Bennett for bronchoscopic evaluation and biopsies of right lower lobe nodule to rule malignancy. Patient reported that she never smoked, she denied weight loss; has weakness and fatigue; Currently she is taking Xarelto for atrial fibrillation Which has had for more than 48 hours She is scheduled for bronchoscopic evaluation today Procedure: Procedure: 82876 Dx Bronchoscope w/Washings or airway inspection 02798 Bx Bronchoscope w/Brushings or protected brushings? 59972 Dx Bronchoscope w/BAL 91491 Bronch with computer image guided Navigational Bronchoscopy 90770 Bronchoscopy w/Transbronchial lung biopsy(s), single lobe 52330 Bronchoscopy w/Transbronchial needle aspiration biopsy(s), tracheal, main stem, and/or lobar bronchus 53434 Bronchoscopy w/ therapeutic aspiration of the tracheobronchial tree (clearance of airway secretions, removal of mucus plugs) 98918 EBUS Sampling >=3 nodes 59996 EBUS Diag or Interven Peripheral lesion (radial EBUS) ? Description of the procedure: The procedure was explained to the patient and the consent was obtained.? The patient was brought to the OR. Anesthesia: The patient underwent endotracheal intubation for general anesthesia. Local anesthesia: 1% lidocaine-1 mL each instilled on main ángel right mainstem bronchus and left mainstem bronchus Following induction of general anesthesia, the flexible bronchoscope was advanced through the? ET tube.? The? lower trachea mucosa appeared normal, no endotracheal lesion was seen.? 1 mL of 1% lidocaine instilled on the main ángel, right mainstem bronchus and left mainstem bronchus.? The ángel was sharp.?There were thick purulent mucus along the ET tube as well as in the lower trachea and into the both mainstem bronchi which were suctioned right away (30225) In a systematic manner bilateral bronchial tree Were then examined. ? The bronchoscope was then introduced into the right mainstem bronchus.There were Thick purulent secretions which were suctioned right away (27753). After suctioning, the right upper lobe, right middle lobe and right lower lobe bronchi were examined up to the third subsegmental level and no abnormalities were identified.Mucosa appeared erythematous in all subsegments, More pronounced in lower lobes Segments, no endobronchial lesion, active bleeding or mucous plug. The bronchoscope was advanced into the left mainstem bronchus.??There were significant thick mucus secretions which were suctioned right away.(17158).? Mucosa appeared erythematous in all subsegments, Less pronounced Compared to right side segments, no endobronchial lesion, active bleeding or mucous plug. After initial inspection as well as airway clearance with flexible bronchoscope(57303),?ION robotic assisted navigational bronchoscope (17006)?was introduced-and right Lower lobe lesion in the posterior apical temporal segment was accessed.? After?confirming the location with radial EBUS (12253), under the fluoroscopy guidance? -we were able to obtain biopsies using fine-needle, Cytobrush,forceps.There was some evidence of grade 2 bleeding-cold saline was instilled.? Bronchoalveolar lavage was also taken from Lateral segment of Right lower lobe. After making sure there is no active bleeding navigational bronchoscope was retracted and introduced?Endobronchial ultrasound EBUS (34389). ? With the help of EBUS, identified a lymph node?station 11 L station 7, station 11R. ??Fine-needle aspiration biopsies? were taken from? station 4L station 7, station 4R? (43121) After taking the biopsies EBUS retracted-diagnostic bronchoscope was introduced to check for any evidence of active bleeding. There was some evidence of bleeding-controlled with instillation of cold saline. After making sure there is no active bleeding bronchoscope was retracted and procedure terminated. ? Samples: A.? Right lower lobe lesion 1.? Total of 4 passes were made using?needle aspiration(21401); 1 slide sent for Onsite pathology Reported Very cellular smears with evidence of necrosis positive for malignancy; ? rest of the material was placed in formalin and sent for histopathology. 1 pass was placed in dry sterile cup And sent to microbiology for tissue culture 2.? Targeting the same area 4 passes were made using?forceps (80544);?1 slide sent for Onsite pathology Reported? seeing Very cellular smears with evidence of necrosis positive for malignancy;;? rest of the material was placed in formalin and sent for histopathology. 1 pass was placed in dry sterile cup And sent to microbiology for tissue culture 3.? Targeting the same area 1 passes were made using?Cytobrush (38873);? all the material was placed in formalin and sent for histopathology 4.?Bronchoscope was wedged at the entrance of the? lateral segment of right lower lobe segment, 20 mL of saline was instilled and returned 12 mL of bronchoalveolar lavage (50409).? The fluid was mixed with blood and specks of tissue. Samples for cell count, cytology, microbiology cultures, fungal cultures, mycobacterial cultures B.?EBUS guided? Fine-needle aspiration biopsies? were taken from? station 11L, station 7, station 4R,? (03008)? 1.? Total of 3 passes were made using needle aspiration(08419) from station?11L; ? 1 slide sent for Onsite pathology Reported? seeing Suspicious for metastatic disease;? rest of the material was placed in formalin and sent for histopathology 2.? Total of 3 passes were made using needle aspiration(04900) from station?7; 1 slide sent for Onsite pathology Reported?Rare atypical cells consistent with metastatic carcinoma;? rest of the material was placed in formalin and sent for histopathology 3.? Total of 3 passes were made using needle aspiration(64639) from station?4R:?1 slide sent for Onsite pathology Reported? seeing Metastatic carcinoma;? rest of the material was placed in formalin and sent for histopathology ? Complications: None.The patient was extubated and brought to the PACU in stable condition. Postprocedure chest x-ray: There is no evidence of pneumothorax Disposition: Patient can be discharged home in stable condition. ? Pt?and family are aware that I am going to call him? to update final biopsy results once available.
[2023-02-05 10:35] LABS: Total Cells Counted Bronch 200
--- NOTE | 2023-02-05 14:24 | ANE.PACU2 ---
Inpatient post-anesthesia follow up: Airway intact: Yes Vital signs: Temperature 97.0 F Pulse Rate 116 Respiratory Rate 17 Blood Pressure 125/68 Pulse Oximetry 92 Oxygen Delivery Me thod Room Air Oxygen Flow Rate 3 Fraction of Inspir ed Oxygen Hydration adequate: Yes Nausea and vomiting: No Pain level: 2 Mental status: Baseline
[2023-02-06 06:51] LABS: Cyto Order Verification Order Verified
[2023-02-06 06:52] LABS: Cyto Order Verification Order Verified
[2023-02-06 06:52] LABS: Cyto Order Verification Order Verified
== END 2023-02-05 11:31 | disposition home or self-care (01) ==
PROVIDERS: Anesthesiology; PCP Family Medicine; Visit Provider Internal Medicine Pulmonary Disease
PROC: 0BJ08ZZ Inspection of Tracheobronchial Tree, Via Natural or Artificial Opening Endoscopic (ICD-10-PCS; CPT 31622; principal; 2023-02-05 07:00)
PROC: BB4BZZZ Ultrasonography of Pleura (ICD-10-PCS; 2023-02-05 07:00)
DX: C34.31 Malignant neoplasm of lower lobe, right bronchus or lung (principal); D50.9 Iron deficiency anemia, unspecified; Z86.16 Personal history of COVID-19; I48.91 Unspecified atrial fibrillation; Z79.01 Long term (current) use of anticoagulants; I10 Essential (primary) hypertension; Z87.11 Personal history of peptic ulcer disease
CPT/HCPCS: 31623; 31624; 31627; 31628; 31629; 31645; 31653; 31654; 36416; 71045; 71250; 76000; 80048; 80503; 82962; 87015; 87070; 87116; 87176; 87205; 87206; 87801; 88112; 88305; 88342; 89050; 93005; 94640; J0171; J1100; J2371; J2405; J2704; J3010; J3490; J3535; J7030

== ENCOUNTER 2023-02-19 10:38 | Outpatient (CLI) | payer MEDICARE, BC, SELFPAY ==
--- NOTE | 2023-02-19 11:00 | CT_ITS ---
WS: [id number] CT chest wo con [id number] HISTORY: Follow-up on lung lesions TECHNIQUE: Axial imaging performed through the thorax. Coronal and sagittal reformats are submitted. All CT scans at [facility] use at least one of these dose optimization techniques: automated exposure control; mA and/or kV adjustment per patient size (includes targeted exams where dose is mat ched to clinical indication); or iterative reconstruction. CONTRAST: None DLP: 608.67 mGy.cm COMPARISON: 02/05/2023 and 05/13/2009. PET/CT 01/12/2023 Lungs and central airway: Hyperinflated lungs with changes of centrilobular emphysema. The cavitary m ass in the RIGHT lower lobe which abuts the fissure is reidentified. Overall size is 2.7 x 2.0 x 2.6 cm. As compared to the recent CT of 02/05/2023 there is probably been no significant improvement. Cavi tation has become more prominent as compared to the PET/CT. The additional scattered opacifications and spiculations throughout both lungs have significantly imp roved. There is still minimal residual scarring or atelectasis in the posterior RIGHT lower lobe and a subpleural nodule in the RIGHT upper lobe. Pleura: Normal. No pleural effusion. Heart and pericardium: Normal size heart with no pericardial effusion. Mediastinum and aryan: Mediastinal and hilar lymph nodes are stable. The largest lymph node is high RI GHT paratracheal at 15 mm. Vessels: Mild atherosclerosis aorta. Pulmonary hypertension. Chest wall and lower neck: No soft tissue masses. Upper abdomen: Large hiatal hernia. Osseous structures: No destructive process. IMPRESSION: 1. No significant improvement in the cavitary nodule in the RIGHT lower lobe which abuts the fissure. Nodule measures 2.7 x 2.0 x 2.6 cm. 2. The additional scattered pulmonary opacifications and spiculations noted on 02/05/2023 have nearly completely resolved. 3. Pulmonary hypertension and advanced emphysema.
== END 2023-02-19 10:39 | disposition home or self-care (01) ==
LOC: RAD 10:39
PROVIDERS: PCP Family Medicine; Visit Provider Internal Medicine Pulmonary Disease
DX: J98.4 Other disorders of lung (principal); R91.1 Solitary pulmonary nodule; I27.20 Pulmonary hypertension, unspecified; J43.9 Emphysema, unspecified
CPT/HCPCS: 71250

== ENCOUNTER 2023-03-15 12:28 | Outpatient (CLI) | payer MEDICARE, BC, SELFPAY ==
--- NOTE | 2023-03-15 12:30 | CTR_ITS ---
PROCEDURE INFORMATION: Exam: CT Chest Without Contrast; Diagnostic Exam date and time: 03/15/2023 12:51 PM Age: 67 years old Clinical indication: Abnormal findings; Abnormal radiologic exam of lung or chest; Patient HX: F/u mass RT lung per PT, HX pneumonia; Additional info: R91.8 - other nonspecific abnormal finding of lung field TECHNIQUE: Imaging protocol: Diagnostic computed tomography of the chest without contrast. Radiation optimization: All CT scans at this facility use at least one of these dose optimization techniques: automated exposure control; mA and/or kV adjustment per patient size (includes targeted exams where dose is matched to clinical indication); or iterative reconstruction. REPORTING DATA: Count of CT and Cardiac NM exams in prior 12 months: This patient has received 3 known CTs and 0 known cardiac nuclear medicine studies in the 12 months prior to the current study. COMPARISON: CT chest wo con [id number] 02/19/2023 11:09 AM RADIATION DOSE METRICS: Total DLP (mGy-cm): 663.65 FINDINGS: Lungs: Right lower lobe cavitary nodule abutting the fissure measures 3.1 x 2.6 cm AP by TV spanning a craniocaudal dimension of 2.3 cm. This is larger than the previous exam where it measured 2.4 x 1.8 x 2.1 cm when remeasured in the same fashion. The wall of the lesion appears thicker. Emphysema is unchanged. Scarring posterior right lower lobe is unchanged. Subpleural right upper lobe solid nodule series 5, image 13 measuring 5 mm is unchanged. Scattered regions of scarring/opacification are unchanged. No new nodule. Pleural spaces: Unremarkable. No pneumothorax. No pleural effusion. Heart: Unchanged heart size. Coronary arteries: No significant coronary artery calcification. Lymph nodes: Mildly prominent lymph node anterior to the trachea measuring 11 mm short axis is unchanged. Vasculature: Stable enlarged main pulmonary artery suggesting pulmonary hypertension. Diaphragm: Unchanged large hiatal hernia. Kidneys and ureters: Unchanged left renal cyst. Bones/joints: Unremarkable. No acute fracture. Soft tissues: Unremarkable. CT/CT chest wo con [id number] IMPRESSION: 1. The cavitary anterior right lower lobe nodule has an increasingly thickened wall and is larger in size than the comparison CT chest from 02/19/2023. In this patient with emphysema this is suspicious for malignancy and biopsy is recommended. 2. Stable solid subpleural right upper lobe 5 mm nodule.
== END 2023-03-15 12:29 | disposition home or self-care (01) ==
PROVIDERS: PCP Family Medicine; Visit Provider Internal Medicine Pulmonary Disease
DX: R91.8 Other nonspecific abnormal finding of lung field (principal)
CPT/HCPCS: 71250

== ENCOUNTER 2023-03-18 12:15 | Oncology outpatient (recurring) (ONCR) | payer MEDICARE, BC, SELFPAY ==
[2023-03-05 12:24] VITALS: PULSE 78; RESP 16; TEMP 36.6; O2SAT 93
[2023-03-05 12:55] LABS: Basophils % 0.2 %; Eosinophils # 0.2 10^3/uL (0.0-0.8); Eosinophils % 3.2 %; Hematocrit 38.9 % (36-47); Lymphocytes % 15.8 %; Mean Corpuscular HGB Conc 31.6 g/dL (30-55); Mean Corpuscular Hemoglobin 31.1 pg (27-33); Mean Corpuscular Volume 98.5 fl (85-98); Mean Platelet Volume 9.9 fL (7.4-10.4); Monocytes # 0.8 10^3/uL (0.2-0.9); Monocytes % 12.3 %; Neutrophils # 4.31 10^3/uL (1.8-7.7); Neutrophils % 68.2 %; Nucleated Red Blood Cells % 0 %; Platelet Count 280 10^3/cmm (157-399); Red Blood Count 3.95 10^6/uL (3.85-5.65); Red Cell Distribution Width 18.3 % (12.1-15.1); White Blood Count 6.32 10^3/uL (3.29-11.43)
[2023-03-05 13:16] LABS: Albumin Level 4.2 g/dL (3.5-5.2); Alkaline Phosphatase 77 U/L (35-105); Anion Gap 13.2 (5-19); Aspartate Amino Transferase 25 U/L (0-32); Blood Urea Nitrogen 15 mg/dL (8-23); Calcium 9.6 mg/dL (8.5-10.5); Carbon Dioxide 31 mmol/L (22-29); Chloride 104 mmol/L (98-107); Globulin 3.2 g/dL (1.3-4.6); Glomerular Filtration Rate 71.5 mL/min (90-130); Glucose 100 mg/dL (65-115); Osmolality Calculated 299 mOsm/kg (285-295); Potassium 4.2 mmol/L (3.5-5.1); Sodium 144 mmol/L (136-145); Total Bilirubin 0.2 mg/dL (0.15-1.2); Total Protein 7.4 g/dL (6.6-8.7)
[2023-03-05 14:00] LABS: Alanine Aminotransferase 17 U/L (0-33); Ferritin 123 ng/mL (15-150); Iron 42 ug/dL (37-145); Percent Saturation 14.2 % (20-50); Total Iron Binding Capacity 294 mcg/dl; Unsaturated Iron Binding 252 ug/dL (112-347)
== END 2023-03-26 23:59 | disposition home or self-care (01) ==
PROVIDERS: Internal Medicine Medical Oncology; Nurse Practitioner Family; PCP Family Medicine; Visit Provider Internal Medicine Medical Oncology
DX: Z53.9 Procedure and treatment not carried out, unspecified reason (principal)
CPT/HCPCS: 36415; 80053; 82728; 83540; 83550; 85025; 99214

== ENCOUNTER 2023-03-18 13:21 | Outpatient (CLI) | payer MEDICARE, BC, SELFPAY ==
[2023-03-18 13:46] VITALS: PULSE 79; RESP 18; O2SAT 98
[2023-03-18] MEDS: albuterol 2.5 mg/3 mL Neb INHALATION (13:48)
[2023-03-18 13:51] VITALS: PULSE 89
== END 2023-03-18 13:22 | disposition home or self-care (01) ==
LOC: RT 13:23
PROVIDERS: Family Provider Internal Medicine Medical Oncology; PCP Family Medicine; Visit Provider Internal Medicine Pulmonary Disease
DX: R06.02 Shortness of breath (principal)
CPT/HCPCS: 94060; 94618; 94726; 94729; J7613

== ENCOUNTER 2023-04-16 14:37 | Oncology outpatient (recurring) (ONCR) | payer MEDICARE, BC, SELFPAY ==
[2023-04-16 14:42] VITALS: BP 169/91; PULSE 80; RESP 16; TEMP 36.3; O2SAT 95
[2023-04-16 14:52] LABS: Basophils % 0.2 %; Eosinophils # 0.2 10^3/uL (0.0-0.8); Eosinophils % 3.7 %; Hematocrit 38.8 % (36-47); Lymphocytes % 17.9 %; Mean Platelet Volume 9.6 fL (7.4-10.4); Monocytes # 0.8 10^3/uL (0.2-0.9); Monocytes % 14.7 %; Neutrophils # 3.38 10^3/uL (1.8-7.7); Neutrophils % 63.1 %; Nucleated Red Blood Cells % 0.6 %; Platelet Count 298 10^3/cmm (157-399); Red Blood Count 3.88 10^6/uL (3.85-5.65); Red Cell Distribution Width 14.6 % (12.1-15.1); White Blood Count 5.36 10^3/uL (3.29-11.43)
[2023-04-16 15:44] LABS: Ferritin 83 ng/mL (15-150); Iron 69 ug/dL (37-145); Percent Saturation 27.7 % (20-50); Total Iron Binding Capacity 249 mcg/dl; Unsaturated Iron Binding 180 ug/dL (112-347)
== END 2023-04-25 23:59 | disposition home or self-care (01) ==
LOC: ONCMED 14:37
PROVIDERS: Nurse Practitioner Family; Family Provider Internal Medicine Medical Oncology; PCP Family Medicine; Visit Provider Internal Medicine Medical Oncology
DX: D50.9 Iron deficiency anemia, unspecified
CPT/HCPCS: 36415; 82728; 83540; 83550; 85025

== ENCOUNTER 2023-05-07 22:00 | Inpatient (IN) | payer MEDICARE, BC, SELFPAY ==
[2023-05-07 22:01] VITALS: BP 186/136; PULSE 121; RESP 17; TEMP 36.7; O2SAT 85; BMI 31.8
--- NOTE | 2023-05-07 22:18 | ECG_ITS ---
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 Measurements Intervals [place] Rate: 106 P: 0 ME: 0 QRS: 85 QRSD: 81 T: 57 QT: 301 QTc: 401 Interpretive Statements ATRIAL FIBRILLATION WITH RAPID VENTRICULAR RESPONSE LOW QRS VOLTAGE IN PRECORDIAL LEADS [QRS DEFLECTION < 1.0 mV IN CHEST LEADS] POSSIBLE RIGHT VENTRICULAR CONDUCTION DELAY [RSR (QR) IN V1/V2] MINIMAL ST DEPRESSION [0.025+ mV ST DEPRESSION] ABNORMAL RHYTHM ECG Compared to ECG 02/05/2023 06:30:04 No significant changes Electronically Signed On 05-08-2023 8:20:27 CERAMIC CHEMIST by Beto Hernández M.D. [email or web address] [id number]
--- NOTE | 2023-05-07 22:18 | CTR_ITS ---
PROCEDURE INFORMATION: Exam: CTA Chest With Contrast Exam date and time: 05/08/2023 12:08 AM Age: 68 years old Clinical indication: Dyspnea; Additional info: Hypoxia, tachycardia, and chest pain. , Patient has a known right lower lobe mass. TECHNIQUE: Imaging protocol: Computed tomographic angiography of the chest with contrast. Exam focused on the arteries. 3D rendering (Not supervised by radiologist): MIP and/or 3D reconstructed images were created by the technologist. Radiation optimization: All CT scans at this facility use at least one of these dose optimization techniques: automated exposure control; mA and/or kV adjustment per patient size (includes targeted exams where dose is matched to clinical indication); or iterative reconstruction. Contrast material: OMNI 350; Contrast volume: 80 ml; Contrast route: INTRAVENOUS (IV); REPORTING DATA: Count of CT and Cardiac NM exams in prior 12 months: This patient has received 4 known CTs and 0 known cardiac nuclear medicine studies in the 12 months prior to the current study. COMPARISON: CT chest wo con [id number] 03/15/2023 12:51 PM RADIATION DOSE METRICS: Total DLP (mGy-cm): 579.88 FINDINGS: Pulmonary arteries: Eccentric filling defect within a proximal right upper lobe segmental pulmonary artery branch and poor opacification of multiple subsegmental pulmonary artery branches bilaterally, predominantly in the upper lobes. There is also poor opacification of the left upper lobe segmental pulmonary artery branch, series 17, image 203. Aorta: No aortic aneurysm. Veins: Reflux of contrast into the intrahepatic IVC and hepatic veins, which can be seen with increased right-sided pressures. Thyroid: No actionable thyroid nodules by size criteria. Lungs: New multifocal ground-glass opacities throughout the bilateral lungs as well as some nodular tree-in-bud type opacities in the right upper lobe, and diffuse airway thickening. Centrally cavitary right lower lobe lesion appears similar to 03/15/2023 measuring approximately 2.7 x 2.0 cm. A 4 mm nodular pleural-based opacity in the right upper lobe, series 17, image 136 is unchanged. Pleural spaces: No pneumothorax. No pleural effusion. Heart: No pericardial effusion. Heart RV/LV ratio: RV to LV ratio greater than 1. No evidence of right heart strain. Lymph nodes: Mediastinal, hilar, and subcarinal adenopathy, increased from prior. Diaphragm: Moderate-sized hiatal hernia, unchanged. Bones/joints: No acute fracture. Soft tissues: Unremarkable. CT/CT angio chest [id number] IMPRESSION: 1. Limited evaluation due to significant respiratory motion, but there appears to be pulmonary emboli within a proximal right upper lobe segmental pulmonary artery branch and within multiple predominantly upper lobe subsegmental pulmonary artery branches bilaterally. 2. New multifocal ground-glass opacities throughout the bilateral lungs as well as some nodular tree-in-bud type opacities in the right upper lobe, and diffuse airway thickening. Findings could be represent combination of pulmonary infarcts, infectious or inflammatory process, and/or neoplasm given right lower lobe mass. 3. Centrally cavitary right lower lobe lesion appears similar to 03/15/2023. 4. THIS REPORT CONTAINS FINDINGS THAT MAY BE CRITICAL TO PATIENT CARE. The findings were verbally communicated via telephone conference with DIRECTOR OF PSYCHIATRY Ivonne Pavon at 2:06 AM PRESSING MACHINE TENDER on 05/08/2023. The findings were acknowledged and understood.
--- NOTE | 2023-05-07 22:21 | ED_ITS ---
Documented by User: ANASTACIA Erwin 05/07/23 23:35 HPI - SOB/Dyspnea 2 General: Chief Complaint: Shortness of Breath/Dyspnea Stated Complaint: SOB Time Seen by Provider: 05/07/23 22:00 History of Present Illness: HPI Narrative: Patient is a 68-year-old female with a past medical history significant for atrial fibrillation, peptic ulcer disease, rheumatoid arthritis, hypertension, and a known right lower lobe mass who presents to the emergency department for evaluation of chest pain and shortness of breath. Patient states that her symptoms started approximately 3 days ago with a cough and has continued to progress since onset. Cough is productive. Patient reports that she has progressively become more short of breath. Admits to an episode of chest pain sometime this afternoon that has since resolved. Patient is unsure of the exact time of the chest pain. Patient reports that the chest pain was retrosternal that she describes as a sharp/stabbing sensation. Patient reports that she was scheduled to get a resection of the mass in her right lower lobe tomorrow morning. Admits to lightheadedness/dizziness and subjective fevers. Patient denies sore throat, otalgia, otorrhea, abdominal pain, constipation, diarrhea, nausea, vomiting, diaphoresis, headache, visual disturbances, numbness, tingling, or any other associated symptoms. No other complaints at this time. Associated symptoms: Reports chest pain, fever(s) and lightheadedness; Deny abdominal pain, dizziness, extremity pain, nausea, palpitations, syncope or vomiting Review of Systems 2 General: Reports: 10 or more systems reviewed and unremarkable except in HPI and below Const: Reports: fever(s) and chills Eyes: Denies: change in vision or blurry vision ENMT: Denies: throat pain, ear or mastoid pain, ear discharge, nasal discharge or nasal congestion Card: Reports: chest pain and lightheadedness; Denies: palpitations or syncope Resp: Reports: dyspnea, productive cough and wheezing; Denies: stridor GI: Denies: abdominal pain, nausea, vomiting, diarrhea or constipation : Denies: dysuria or hematuria Musc: Denies: neck pain, back pain or extremity pain Neuro: Denies: headache(s) or dizziness PFS ED 2 PFSH: Medical History Atrial fibrillation Peptic ulcer disease with his history of bleeding ulcer Rheumatoid arthritis Hypertension History of staph infection 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 Iron deficiency anemia Surgical History History of esophagogastroduodenoscopy (EGD) 07/2015 History of colonoscopy 12/2014 History of carpal tunnel surgery Bilateral Family History Grandmother CAD (coronary artery disease) Diabetes Mother CAD (coronary artery disease) Cancer Leukemia Diabetes Grandfather Cancer Father Cancer Bladder cancer Other Hypertension Denies family history of Clotting disorder Dementia Hyperlipidemia Psychiatric illness Chronic kidney disease (CKD) Suicide Anesthesia complication Bleeding disorder Lung disease Stroke Social History Smoking and tobacco/nicotine status: never used tobacco/nicotine Alcohol intake: never Physical Exam 2 Const: COMMON NORMALS: no acute distress, patient oriented x3 and alert HENMT: COMMON NORMALS: normocephalic, atraumatic, moist oral mucous membranes and oropharynx normal HEAD & SCALP: normocephalic and atraumatic Eye: COMMON NORMALS: Equal, round and reactive pupils present, EOMs intact bilaterally, conjunctivae normal and no scleral icterus CONJUNCTIVA: Yes conjunctivae normal PUPIL: Yes Equal, round and reactive pupils present Neck/C-Spine: COMMON NORMALS: full ROM, no lymphadenopathy, supple and no meningeal signs Chest: COMMONS NORMALS: normal inspection of the chest Resp: OTHER: Expiratory wheezes heard in the bilateral upper and lower lung juarez. No rales, rhonchi, or stridor noted. Thoracic expansion equal bilaterally. No intercostal retractions or accessory muscle use noted. Patient is requiring 4 L of nasal cannula oxygen to stay above 90%. Cardio: COMMON NORMALS: No gallops present (Cardio), No clicks present (Cardio), No murmurs present (Cardio) and No rub (Cardio) RATE: tachycardic RHYTHM: abnormal rhythm GI: COMMON NORMALS: Normal to inspection, nondistended, normoactive bowel sounds present, Soft to palpation and non-tender PALPATION: Yes Soft to palpation Neuro: COMMON NORMALS: patient oriented x3 SENSORIUM/ORIENTATION: Yes alert MENINGEAL SIGNS: Yes no meningeal signs OTHER: Patient is alert and oriented x 4. No focal neurological deficits noted on examination. Sensation intact in the bilateral upper and lower extremities. Course 2 Vital Signs: Vital signs: Vital Signs Temperature 98.1 F 05/07/23 22:01 Pulse Rate 112 H 05/07/23 22:53 Respiratory Rate 24 H 05/07/23 22:53 Blood Pressure 186/136 05/07/23 22:01 Pulse Oximetry 94 05/07/23 22:53 Oxygen Delivery Me thod Nasal Cannula 05/07/23 22:53 Oxygen Flow Rate 2 05/07/23 22:53 MDM - SOB/Dyspnea Lab Data 05/07/23 22:34 05/07/23 22:34 Labs/Radiology: Laboratory Results WBC 7.84 10^3/uL (3.29-11.43) 05/07/23 22:34 RBC 3.59 10^6/uL (3.85-5.65) L 05/07/23 22:34 Hgb 11.50 g/dL (11.27-16.99) 05/07/23 22:34 Hct 36.5 % (36-47) 05/07/23 22:34 MCV 101.7 fl (85-98) H 05/07/23 22:34 MCH 32.0 pg (27-33) 05/07/23 22:34 MCHC 31.5 g/dL (30-55) 05/07/23 22:34 RDW 15.2 % (12.1-15.1) H 05/07/23 22:34 Plt Count 319 10^3/cmm (157-399) 05/07/23 22:34 MPV 9.7 fL (7.4-10.4) 05/07/23 22:34 Neut % (Auto) 77.2 % 05/07/23 22:34 Lymph % (Auto) 6.1 % 05/07/23 22:34 Stafford % (Auto) 15.6 % 05/07/23 22:34 Eos % (Auto) 0.4 % 05/07/23 22:34 Baso % (Auto) 0.3 % 05/07/23 22:34 Neut # (Auto) 6.06 10^3/uL (1.8-7.7) 12/12/23 22:34 Lymph # (Auto) 0.5 10^3/uL (0.8-4.8) L 05/07/23 22:34 Stafford # (Auto) 1.2 10^3/uL (0.2-0.9) H 05/07/23 22:34 Eos # (Auto) 0.0 10^3/uL (0.0-0.8) 05/07/23 22:34 Baso # (Auto) 0.0 10^3/uL (0.0-0.1) 05/07/23 22:34 Nucleated RBC % (auto) 0 % 05/07/23 22:34 Nucleated RBCs # 0.0 /100WBC 05/07/23 22:34 Specimen Type Arterial 05/07/23 22:32 Sample Site Radial, right 05/07/23 22:32 ABG pH 7.42 (7.35-7.45) 05/07/23 22:32 ABG pCO2 45.4 mmHg (35-45) H 05/07/23 22:32 ABG pO2 69.9 mmHg (80.0-100.0) L 05/07/23 22:32 ABG HCO3 29.4 mmol/L (22-26) H 05/07/23 22:32 ABG O2 Saturation 95.4 05/07/23 22:32 ABG Base Excess 4.3 mmol/L (-2.0-2.0) H 05/07/23 22:32 Jean Claude Test Pos 05/07/23 22:32 A-a O2 Gradient 3.4 mmHg (5-10) L 05/07/23 22:32 Hematocrit 35.3 % (37-47) L 05/07/23 22:32 Hgb O2 Saturation 92.9 % (95-100) L 05/07/23 22:32 Carboxyhemoglobin 2.2 %THgb (0.4-20.1) 05/07/23 22:32 Methemoglobin 0.4 % (0.4-1.5) 05/07/23 22:32 Total Hemoglobin 11.5 g/dL (12-16) L 05/07/23 22:32 Sodium 140.0 mmol/L (131-143) 05/07/23 22:32 Potassium 4.2 mmol/L (3.5-5.0) 05/07/23 22:32 Glucose 103.0 mg/dL (70-115) 05/07/23 22:32 Ionized Calcium 1.2 mmol/L (1.1-1.4) 05/07/23 22:32 O2 Delivery Device Nc 05/07/23 22:32 O2 Liters/Min 2.0 % 05/07/23 22:32 Javascript Front End Developer ID [email or web address] 05/07/23 22:32 Sodium 137 mmol/L (136-145) 05/07/23 22:34 Potassium 4.4 mmol/L (3.5-5.1) 05/07/23 22:34 Chloride 99 mmol/L (98-107) 05/07/23 22:34 Carbon Dioxide 30 mmol/L (22-29) H 05/07/23 22:34 Anion Gap 12.4 (5-19) 05/07/23 22:34 BUN 12 mg/dL (8-23) 05/07/23 22:34 Creatinine 0.8 mg/dL (0.5-0.9) 05/07/23 22:34 GFR Calculation 71.3 mL/min (90-130) L 05/07/23 22:34 Glucose 103 mg/dL (65-115) 05/07/23 22:34 Calculated Osmolality 284 mOsm/kg (285-295) L 05/07/23 22:34 Calcium 9.2 mg/dL (8.5-10.5) 05/07/23 22:34 Total Bilirubin 0.3 mg/dL (0.15-1.2) 05/07/23 22:34 AST 22 U/L (0-32) 05/07/23 22:34 ALT 15 U/L (0-33) 05/07/23 22:34 Alkaline Phosphatase 89 U/L (35-105) 05/07/23 22:34 Troponin T Baseline 15 ng/L (0-10) H 05/07/23 22:34 Total Protein 7.1 g/dL (6.6-8.7) 05/07/23 22:34 Albumin 4.0 g/dL (3.5-5.2) 05/07/23 22:34 Globulin 3.1 g/dL (1.3-4.6) 05/07/23 22:34 SARS-CoV-2 Ag (Rapid) negative (Negative) 05/07/23 22:22 Discharge Plan Discharge Patient Disposition: Admitted As Inpatient Clinical Impression: Atrial fibrillation with rapid ventricular response Condition: Stable Coding Level of Care Code ED Marine Engineer Cpvec for Lea Fwd Documented by User: Mitesh Rob MD 05/07/23 23:34 HPI - SOB/Dyspnea 2 General: Chief Complaint: Shortness of Breath/Dyspnea Stated Complaint: SOB Time Seen by Provider: 05/07/23 22:00 [facility] ED 2 PFSH: Medical History Atrial fibrillation Peptic ulcer disease with his history of bleeding ulcer Rheumatoid arthritis Hypertension History of staph infection 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 Iron deficiency anemia Surgical History History of esophagogastroduodenoscopy (EGD) 07/2015 History of colonoscopy 12/2014 History of carpal tunnel surgery Bilateral Family History Grandmother CAD (coronary artery disease) Diabetes Mother CAD (coronary artery disease) Cancer Leukemia Diabetes Grandfather Cancer Father Cancer Bladder cancer Other Hypertension Denies family history of Clotting disorder Dementia Hyperlipidemia Psychiatric illness Chronic kidney disease (CKD) Suicide Anesthesia complication Bleeding disorder Lung disease Stroke Social History Smoking and tobacco/nicotine status: never used tobacco/nicotine Alcohol intake: never Course 2 Vital Signs: Vital signs: Vital Signs Temperature 98.1 F 05/07/23 22:01 Pulse Rate 112 H 05/07/23 22:53 Respiratory Rate 24 H 05/07/23 22:53 Blood Pressure 186/136 05/07/23 22:01 Pulse Oximetry 94 05/07/23 22:53 Oxygen Delivery Me thod Nasal Cannula 05/07/23 22:53 Oxygen Flow Rate 2 05/07/23 22:53 MDM - SOB/Dyspnea Medical Decision Making Physical exam completed and documented I discussed the plan of care with the midlevel provider that was taken care of the patient and assumed care of the patient. We have contacted the hospital for admission of the patient for her atrial fibrillation which is now rate controlled and requiring a Cardizem drip. Medical Records I reviewed the patient's medical records. Lab Data I reviewed the patient's lab results. 05/07/23 22:34 05/07/23 22:34 Labs/Radiology: Laboratory Results WBC 7.84 10^3/uL (3.29-11.43) 05/07/23 22:34 RBC 3.59 10^6/uL (3.85-5.65) L 05/07/23 22:34 Hgb 11.50 g/dL (11.27-16.99) 05/07/23 22:34 Hct 36.5 % (36-47) 05/07/23 22:34 MCV 101.7 fl (85-98) H 05/07/23 22:34 MCH 32.0 pg (27-33) 05/07/23 22:34 MCHC 31.5 g/dL (30-55) 05/07/23 22:34 RDW 15.2 % (12.1-15.1) H 05/07/23 22:34 Plt Count 319 10^3/cmm (157-399) 05/07/23 22:34 MPV 9.7 fL (7.4-10.4) 05/07/23 22:34 Neut % (Auto) 77.2 % 05/07/23 22:34 Lymph % (Auto) 6.1 % 05/07/23 22:34 Stafford % (Auto) 15.6 % 05/07/23 22:34 Eos % (Auto) 0.4 % 05/07/23 22:34 Baso % (Auto) 0.3 % 05/07/23 22:34 Neut # (Auto) 6.06 10^3/uL (1.8-7.7) 05/07/23 22:34 Lymph # (Auto) 0.5 10^3/uL (0.8-4.8) L 05/07/23 22:34 Stafford # (Auto) 1.2 10^3/uL (0.2-0.9) H 05/07/23 22:34 Eos # (Auto) 0.0 10^3/uL (0.0-0.8) 05/07/23 22:34 Baso # (Auto) 0.0 10^3/uL (0.0-0.1) 05/07/23 22:34 Nucleated RBC % (auto) 0 % 05/07/23 22:34 Nucleated RBCs # 0.0 /100WBC 05/07/23 22:34 Specimen Type Arterial 05/07/23 22:32 Sample Site Radial, right 05/07/23 22:32 ABG pH 7.42 (7.35-7.45) 05/07/23 22:32 ABG pCO2 45.4 mmHg (35-45) H 05/07/23 22:32 ABG pO2 69.9 mmHg (80.0-100.0) L 05/07/23 22:32 ABG HCO3 29.4 mmol/L (22-26) H 05/07/23 22:32 ABG O2 Saturation 95.4 05/07/23 22:32 ABG Base Excess 4.3 mmol/L (-2.0-2.0) H 05/07/23 22:32 Jean Claude Test Pos 05/07/23 22:32 A-a O2 Gradient 3.4 mmHg (5-10) L 05/07/23 22:32 Hematocrit 35.3 % (37-47) L 05/07/23 22:32 Hgb O2 Saturation 92.9 % (95-100) L 05/07/23 22:32 Carboxyhemoglobin 2.2 %THgb (0.4-20.1) 05/07/23 22:32 Methemoglobin 0.4 % (0.4-1.5) 05/07/23 22:32 Total Hemoglobin 11.5 g/dL (12-16) L 05/07/23 22:32 Sodium 140.0 mmol/L (131-143) 05/07/23 22:32 Potassium 4.2 mmol/L (3.5-5.0) 05/07/23 22:32 Glucose 103.0 mg/dL (70-115) 05/07/23 22:32 Ionized Calcium 1.2 mmol/L (1.1-1.4) 05/07/23 22:32 O2 Delivery Device Nc 05/07/23 22:32 O2 Liters/Min 2.0 % 05/07/23 22:32 Javascript Front End Developer ID [email or web address] 05/07/23 22:32 Sodium 137 mmol/L (136-145) 05/07/23 22:34 Potassium 4.4 mmol/L (3.5-5.1) 05/07/23 22:34 Chloride 99 mmol/L (98-107) 05/07/23 22:34 Carbon Dioxide 30 mmol/L (22-29) H 05/07/23 22:34 Anion Gap 12.4 (5-19) 05/07/23 22:34 BUN 12 mg/dL (8-23) 05/07/23 22:34 Creatinine 0.8 mg/dL (0.5-0.9) 05/07/23 22:34 GFR Calculation 71.3 mL/min (90-130) L 05/07/23 22:34 Glucose 103 mg/dL (65-115) 05/07/23 22:34 Calculated Osmolality 284 mOsm/kg (285-295) L 05/07/23 22:34 Calcium 9.2 mg/dL (8.5-10.5) 05/07/23 22:34 Total Bilirubin 0.3 mg/dL (0.15-1.2) 05/07/23 22:34 AST 22 U/L (0-32) 05/07/23 22:34 ALT 15 U/L (0-33) 05/07/23 22:34 Alkaline Phosphatase 89 U/L (35-105) 05/07/23 22:34 Troponin T Baseline 15 ng/L (0-10) H 05/07/23 22:34 Total Protein 7.1 g/dL (6.6-8.7) 05/07/23 22:34 Albumin 4.0 g/dL (3.5-5.2) 05/07/23 22:34 Globulin 3.1 g/dL (1.3-4.6) 05/07/23 22:34 SARS-CoV-2 Ag (Rapid) negative (Negative) 05/07/23 22:22 All radiology interpretation(s) finalized by discharge Critical Care Time 2 Critical Care Time: Critical Care Time: Yes Total Critical Care Time: 35 Attestation: This case had a high probability of a clinically significant, sudden, or life threatening deterioration of this patient's condition which required my full and direct attention, intervention and personal management. Discharge Plan Discharge Patient Disposition: Admitted As Inpatient Clinical Impression: Atrial fibrillation with rapid ventricular response Condition: Stable Coding Level of Care Code ED Marine Engineer Cpvec for Lea Pedroza
[2023-05-07 22:42] LABS: Basophils % 0.3 %; Eosinophils % 0.4 %; Hematocrit 36.5 % (36-47); Lymphocytes # 0.5 10^3/uL (0.8-4.8); Lymphocytes % 6.1 %; Mean Corpuscular HGB Conc 31.5 g/dL (30-55); Mean Corpuscular Volume 101.7 fl (85-98); Mean Platelet Volume 9.7 fL (7.4-10.4); Monocytes # 1.2 10^3/uL (0.2-0.9); Monocytes % 15.6 %; Neutrophils # 6.06 10^3/uL (1.8-7.7); Neutrophils % 77.2 %; Nucleated Red Blood Cells % 0 %; Platelet Count 319 10^3/cmm (157-399); Red Blood Count 3.59 10^6/uL (3.85-5.65); Red Cell Distribution Width 15.2 % (12.1-15.1); White Blood Count 7.84 10^3/uL (3.29-11.43)
[2023-05-07] MEDS: methylPREDNISolone sod succ 125 mg/2 mL INJ IVP (22:42)
[2023-05-07 22:43] LABS: ABG PCO2 45.4 mmHg (35-45); ABG PH Result 7.42 (7.35-7.45); Alveolar-Arterial Oxygen Gradi 3.4 mmHg (5-10); Arterial Blood Gas Hematocrit 35.3 % (37-47); Base Excess ABG 4.3 mmol/L (-2.0-2.0); Blood Gas Allen Test Pos; Blood Gas Sample Site Radial, right; Blood Gas Sample Type Arterial; Carboxyhemoglobin 2.2 %THgb (0.4-20.1); HCO3 ABG 29.4 mmol/L (22-26); HGB O2 Sat 92.9 % (95-100); Ionized Calcium Level - ABG 1.2 mmol/L (1.1-1.4); Methemoglobin 0.4 % (0.4-1.5); Oxygen Device NC; Oxygen Saturation ABG 95.4; PO2 ABG 69.9 mmHg (80.0-100.0); Potassium Level - ABG 4.2 mmol/L (3.5-5.0); Total Hemoglobin 11.5 g/dL (12-16)
[2023-05-07] MEDS: ipratropium-albuterol 3 mL Neb INHALATION (22:50)
[2023-05-07 22:53] VITALS: PULSE 112; RESP 24; O2SAT 94
[2023-05-07 22:58] LABS: Alanine Aminotransferase 15 U/L (0-33); Alkaline Phosphatase 89 U/L (35-105); Anion Gap 12.4 (5-19); Aspartate Amino Transferase 22 U/L (0-32); Blood Urea Nitrogen 12 mg/dL (8-23); Calcium 9.2 mg/dL (8.5-10.5); Carbon Dioxide 30 mmol/L (22-29); Chloride 99 mmol/L (98-107); Globulin 3.1 g/dL (1.3-4.6); Glomerular Filtration Rate 71.3 mL/min (90-130); Glucose 103 mg/dL (65-115); Osmolality Calculated 284 mOsm/kg (285-295); Potassium 4.4 mmol/L (3.5-5.1); Sodium 137 mmol/L (136-145); Total Bilirubin 0.3 mg/dL (0.15-1.2); Total Protein 7.1 g/dL (6.6-8.7)
[2023-05-07 23:01] LABS: Troponin(5th) Baseline 15 ng/L (0-10)
[2023-05-07] MEDS: sodium chloride 0.9% 1,000 ML 999 ML IV (23:02)
[2023-05-07] MEDS: dilTIAZem 5 mg/mL SDV 5 mL 10 MG IVP (23:02)
--- NOTE | 2023-05-07 23:13 | P.HP_ITS ---
Providers/Chief Complaint 2 Primary Care Provider: Madi Reeves MD Chief Complaint: SOB History of Present Illness Marsha Husain is a 68 year old female with history of right lung mass, following up with Dr. Yee, she was scheduled for right lower lobe lobectomy with Dr. Mccoy at [facility] presented today with fever and worsening shortness of breath. Patient does not use any oxygen, patient is stating that he started becoming short of breath yesterday which gotten worse today, she also experienced chest pain which is described as stabbing pain which travels across her right side of her chest for few seconds, she has not noticed any nausea, vomiting, she is endorsing low-grade fever 99.9, because of worsening of her symptoms she decided to come to the hospital for further evaluation. The hospital she has been diagnosed with A-fib RVR. She has chronic history she is on anticoagulating agent which she stopped taking since last week for her anticipated surgery tomorrow with the rv servicer at [place]. She also accidentally stopped her metoprolol Now her surgery is scheduled for May 29 Patient is stating that when she learned that she wanted able to go to surgery tomorrow she took her Xarelto and metoprolol today her last of Xarelto was 4 PM Review of Systems 2 Const: Reports: fever(s) Eyes: Denies: change in vision ENMT: Denies: throat pain Card: Reports: chest pain Resp: Reports: dyspnea GI: Denies: abdominal pain Medications/Allergies Home Medications Medication Instructions Recorded Confirmed Last Taken Type ascorbic acid (vitamin C) 1,000 mg 1 g PO BID 10/18/21 03/05/23 02/04/23 History tablet cephalexin 500 mg tablet 500 mg PO DAILY 10/18/21 03/05/23 02/04/23 History cholecalciferol (vitamin D3) 25 25 mcg PO DAILY 10/18/21 03/05/23 02/04/23 History mcg (1,000 unit) capsule folic acid 1 mg tablet 1 mg PO DAILY 10/18/21 03/05/23 02/04/23 History methotrexate sodium 2.5 mg tablet See Rx Instructions PO .weekly 10/18/21 03/05/23 02/01/23 History metoprolol succinate 200 mg 200 mg PO DAILY 10/18/21 03/05/23 02/05/23 History tablet,extended release 24 hr [id number]-[id number] tablet 1 tab PO DAILY 10/18/21 03/05/23 02/04/23 History omeprazole 20 mg capsule,delayed 20 mg PO BID 10/18/21 03/05/23 02/04/23 History release zinc gluconate 50 mg tablet 50 mg PO DAILY 10/18/21 03/05/23 02/04/23 History losartan 100 1 tab PO DAILY 04/30/22 03/05/23 02/04/23 History mg-hydrochlorothiazide 12.5 mg tablet bumetanide 1 mg tablet 1 mg PO DAILY PRN Edema 01/29/23 03/05/23 02/04/23 History levofloxacin 750 mg tablet 750 mg PO DAILY 02/05/23 03/05/23 02/04/23 History levalbuterol HCl 0.63 mg/3 mL 0.63 mg (3 mL) inhalation TID #75 02/08/23 03/05/23 Unknown Rx solution for nebulization mL levalbuterol tartrate 45 2 inh inhalation Q6H #15 grams 02/08/23 03/05/23 Unknown Rx mcg/actuation aerosol inhaler rivaroxaban 20 mg tablet (Xarelto) 20 mg PO DAILY #90 tabs 02/27/23 03/05/23 Unknown Rx potassium chloride 10 mEq 10 meq PO DAILY edema 03/05/23 03/05/23 Unknown History tablet,extended release(part/cryst) Allergies Allergy/AdvReac Type Severity Reaction Status Date / Time No Known Allergies Allergy Verified 03/05/23 14:04 PFSH Acute 2 PFSH: Medical History Atrial fibrillation Peptic ulcer disease with his history of bleeding ulcer Rheumatoid arthritis Hypertension History of staph infection 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 Iron deficiency anemia Surgical History History of esophagogastroduodenoscopy (EGD) 07/2015 History of colonoscopy 12/2014 History of carpal tunnel surgery Bilateral Family History Grandmother CAD (coronary artery disease) Diabetes Mother CAD (coronary artery disease) Cancer Leukemia Diabetes Grandfather Cancer Father Cancer Bladder cancer Other Hypertension Denies family history of Clotting disorder Dementia Hyperlipidemia Psychiatric illness Chronic kidney disease (CKD) Suicide Anesthesia complication Bleeding disorder Lung disease Stroke Social History Smoking and tobacco/nicotine status: never used tobacco/nicotine Alcohol intake: never Vitals/I&O/Wt Last Vital Signs Temp 98.1 F 05/07/23 22:01 Pulse 112 H 05/07/23 22:53 Resp 24 H 05/07/23 22:53 BP 186/136 05/07/23 22:01 Pulse Ox 94 05/07/23 22:53 O2 Del Method Nasal Cannula 05/07/23 22:53 O2 Flow Rate 2 05/07/23 22:53 Weight last 48 hrs Weight 81.647 kg Physical Exam 2 Narrative: Awake alert Mild edema of legs Regular S1-S2 A-fib RVR Abdomen soft Present Active wheezing GCS 15 Currently on 2 L Pleasant and cooperative Data 05/07/23 22:34 05/07/23 22:34 A&P Assessment and plan (1) Atrial fibrillation with rapid ventricular response: (2) Large hiatal hernia: (3) Pulmonary cavitary lesion: (4) Lung mass: (5) Hypoxia: Plan A-fib RVR Chronic history Continue rivaroxaban 20 mg daily History of cardioversion Currently patient is on Cardizem drip 5 mg I will continue her metoprolol succinate 200 mg daily Keep potassium above 4 magnesium above 2 Cavitary lesion patient has been treated for aspiration pneumonitis by rv servicer, PET scan has been done, navigational bronchoscopy done as wellWhich showed necrosis with some atypical cells suspicion for malignancy Definitive diagnosis is pending depending on pathology after lobectomy Mild signs of congestive heart failure EF unknown Will request BNP and echo Patient takes Bumex on every other day basis Acute hypoxia related to right lung mass Will request CT chest rule out PE CTA chest requested which is pending Also has history of hiatal hernia Rule out exacerbation of hiatal hernia she has history of chronic aspiration likely related to underlying hernia Full code Cardiac diet DVT prophylaxis covered with rivaroxaban Patient's surgery has been rescheduled for [address] [place] [address] Prince for right lower lobe lobectomy Review of records: Patient had an deficiency anemia, peptic ulcer disease, PET positive lung mass, bronchoscopy has been done, BAL cultures were negative, patient also has hiatal hernia, Attestations 2 Medical Necessity Statement*: More than 2 midnights anticipated currently on Cardizem drip Diagnoses Atrial fibrillation with rapid ventricular response I48.91 Large hiatal hernia K44.9 Pulmonary cavitary lesion J98.4 Lung mass R91.8 Hypoxia R09.02
[2023-05-07] MEDS: dilTIAZem 100 MG in sodium chloride 0.9% (add-van) 100 ML 10 MG IV (23:18)
[2023-05-07 23:33] LABS: SARS Covid-2 Antigen negative (Negative)
[2023-05-07 23:38] LABS: Magnesium 1.9 mg/dL (1.7-2.3)
[2023-05-07 23:41] LABS: Urine Color Yellow (Yellow)
[2023-05-07 23:42] LABS: Add Urine Microscopic? YES; Bilirubin Urine Neg (Negative); Blood Urine 2+ (Negative); Glucose Urine UA Norm (Normal); Ketones Urine 1+ (Negative); Leukocyte Esterase Urine 1+ (Negative); Nitrate Urine Negative (Negative); Protein Urine 1+ (Negative); Specific Gravity, Urine 1.025 (1.005-1.030); Urine Appearance SL Hazy (CLEAR); Urobilinogen Urine Neg (Negative); WBC Urine 0-4 /hpf (0-5); pH Urine 5 (5-7)
[2023-05-07 23:43] LABS: Add Urine Culture? No; Bacteria Urine 1+ /hpf; Mucus Urine 2+ /hpf
[2023-05-07 23:51] VITALS: BP 211/118; PULSE 101; O2SAT 93
[2023-05-07 23:51] LABS: Influenza A by IFA negative (Negative); Influenza B by IFA negative (Negative)
[2023-05-08] VITALS (67 sets, daily range): BP systolic 111–157; BP diastolic 57–104; PULSE 72–121; RESP 12–29; TEMP 36.2–37; O2SAT 83–98; BMI 40.6
[2023-05-08 00:16] LABS: NT Pro B Type Natriuretic Pept 2345 pg/mL (0-125)
--- NOTE | 2023-05-08 00:18 | ECG_ITS ---
[facility] Test Date: 2023-05-08 Pat Name: Marsha Husain Department: Room: 112 Gender: Female Drafter (Cad) Electronic: : 1955 Requested By: Lance Guevara Order Number: [id number] Voss MD: Mariana Davidson M.D. Measurements Intervals [place] Rate: 104 P: 0 MS: 0 QRS: 73 QRSD: 90 T: 44 QT: 331 QTc: 437 Interpretive Statements ATRIAL FIBRILLATION WITH RAPID VENTRICULAR RESPONSE POSSIBLE RIGHT VENTRICULAR CONDUCTION DELAY [RSR (QR) IN V1/V2] ABNORMAL RHYTHM ECG Compared to ECG 05/07/2023 22:42:41 ST (T wave) deviation no longer present Electronically Signed On 05-08-2023 21:50:41 MANAGING CONSULTANT CLINICAL PROFESSOR by Mariana Davidson M.D. [email or web address] Technologiesmagee general hospitalNexaweb Technologiesselect medical specialty hospital - [facility] northLincoln [employer]/store/[id number]
[2023-05-08] MEDS: iohexol 350 mg/mL 500 mL Btl (per mL) IV (00:26)
[2023-05-08] MEDS: FUROsemide 10 mg/mL SDV 10mL 60 MG IVP (00:47)
[2023-05-08] MEDS: levalbuterol 1.25 mg/3 mL Neb INHALATION ×4 (01:05→11:21)
[2023-05-08] MEDS: ipratropium 0.5 mg/2.5 mL Neb INHALATION ×6 (01:05→20:11)
[2023-05-08 01:41] LABS: Troponin 5 2HR 13.48 ng/L (0-10)
[2023-05-08 01:56] LABS: Troponin 5 2HR Delta -1.52 ABS# (0-10)
--- NOTE | 2023-05-08 02:42 | PC.NURSE ---
EMILIA called floor and reported patient had critical findings of acute pulmonary emboli seen on CT scan. Dr. Alvarez notified and ordered 100mg Lovenox Q12H. Patient told of results and that we would like her to stay on bedrest and only use bedside commode until the provider speaks with her. Patiently currently lying in bed with radiology at bedside performing echocardiogram.
--- NOTE | 2023-05-08 04:18 | ECG_ITS ---
[facility] Test Date: 2023-05-08 Pat Name: Marsha Husain Department: Room: 112 Gender: Female It Administrator: : 1955 Requested By: Lance Guevara Order Number: [id number] Voss MD: Mariana Davidson M.D. Measurements Intervals [place] Rate: 90 P: 0 [place]: 0 QRS: 70 QRSD: 91 T: 31 QT: 387 QTc: 475 Interpretive Statements ATRIAL FIBRILLATION ABNORMAL RHYTHM ECG Compared to ECG 05/08/2023 01:29:53 No significant changes Electronically Signed On 05-08-2023 21:50:43 PHYSICS DEPARTMENT CHAIR by Mariana Davidson M.D. [email or web address] Clubsan [email or web address] [id number]
[2023-05-08] MEDS: enoxaparin 100 mg/mL Syringe SUBCUT ×2 (04:25→13:27)
[2023-05-08 04:34] LABS: Basophils % 0.1 %; Hematocrit 38.2 % (36-47); Lymphocytes # 0.4 10^3/uL (0.8-4.8); Lymphocytes % 4.3 %; Mean Corpuscular HGB Conc 31.4 g/dL (30-55); Mean Corpuscular Hemoglobin 32.1 pg (27-33); Mean Corpuscular Volume 102.1 fl (85-98); Mean Platelet Volume 9.8 fL (7.4-10.4); Monocytes # 0.1 10^3/uL (0.2-0.9); Monocytes % 1.2 %; Neutrophils # 7.95 10^3/uL (1.8-7.7); Nucleated Red Blood Cells % 0 %; Platelet Count 311 10^3/cmm (157-399); Red Blood Count 3.74 10^6/uL (3.85-5.65); White Blood Count 8.45 10^3/uL (3.29-11.43)
[2023-05-08 04:57] LABS: Anion Gap 17.8 (5-19); Blood Urea Nitrogen 12 mg/dL (8-23); C Reactive Protein 56.9 mg/L (0.0-4.9); Calcium 9.1 mg/dL (8.5-10.5); Carbon Dioxide 27 mmol/L (22-29); Chloride 96 mmol/L (98-107); Glomerular Filtration Rate 71.3 mL/min (90-130); Glucose 162 mg/dL (65-115); Magnesium 1.7 mg/dL (1.7-2.3); Osmolality Calculated 287 mOsm/kg (285-295); Potassium 3.8 mmol/L (3.5-5.1); Sodium 137 mmol/L (136-145)
[2023-05-08] MEDS: sennosides-docusate Tablet 1 TAB PO (08:54)
[2023-05-08] MEDS: magnesium oxide 400 mg tablet PO ×2 (08:54→18:05)
[2023-05-08] MEDS: losartan 50 mg Tablet 100 MG PO (08:54)
[2023-05-08] MEDS: metoprolol succinate ER (24 HR) 100 mg Tablet 200 MG PO (08:54)
[2023-05-08] MEDS: potassium chloride ER 20 mEq Tablet PO (08:54)
--- NOTE | 2023-05-08 10:05 | PC.CHAP ---
Pastoral Care Encounter/Spiritual Assessment Type of Contact [] Declined sock examiner visit [] Patient/Family/Request visit [] Outpatient visit [] Follow-up visit [] Physician referral [] Code/Alert [x] Routine visit [] Staff referral [] Actively dying [] Patient sleeping [x] Family support [] [] Out of room [] Palliative care [] [] Receiving care in room [] Pre-surgical visit [] Trauma [] Long length of stay [] ICU visit [] Other: Relational/Emotional Strength [x] Patient feels connected with others/family/visitors/staff [] Distress [] Loneliness/isolation [] Abandonment Spirituality of Patient [] Person of Maria Alejandra [] Attends Congregation of their Maria Alejandra [x] Believes in Prayer [] Reads Bible or Mu-Ism materials [] There are Spiritual issues to be addressed Portfolio Architect Interventions [x] Prayer [] Active listening [] Non-anxious presence [x] Spiritual/emotional support [] Crisis/trauma care [] Spiritual counseling [] Bereavement support [] Provided bereavement packet [] Provided Bible/devotional materials [] Provided toy/stuffed animal, coloring book to patient or family member [] Provided Communion [] Anointing/[place] [] Salvation [] Completed spiritual assessment [] Other: Impact on Illness or Injury [] Angry [] Fearful [] Anxious [] Often cries [] Exhaustion [] Unable to work [] Unable to attend jewish [] Unable to walk/stand [] Unable to read [] Unable to drive [] Unable to eat/drink [] Unable to sleep [] Unable to be with family [] Patient intubated [] Other: Summary Time spent with patient 15 min
[2023-05-08] MEDS: dilTIAZem 100 MG in sodium chloride 0.9% (add-van) 100 ML 10 MG IV (10:26)
[2023-05-08] MEDS: FUROsemide 10 mg/mL SDV 4mL 40 MG IVP (13:28)
--- NOTE | 2023-05-08 13:52 | P.PN_ITS ---
Subjective 2 Subjective: Admitted overnight. H&P and labs appreciated. Examination patient lying comfortably in bed on 2 L of oxygen supplementation with family at bedside. Patient complaining of mild shortness of breath. Currently on 10 of IV Cardizem drip with heart rate at 70 to 75 bpm, A-fib. Patient denies any nausea, vomiting, headache. Denies any chest pain currently. Vitals/I&O/Wt Last Vital Signs Temp 98.3 F 05/08/23 12:23 Pulse 75 05/08/23 12:23 Resp 20 H 05/08/23 12:23 BP 128/57 05/08/23 12:23 Pulse Ox 95 05/08/23 12:23 O2 Del Method Nasal Cannula 05/08/23 12: O2 Flow Rate 3 05/08/23 11:10 05/07/23 05/08/23 05/08/23 22:59 06:59 14:59 Intake Total 1317.083 / 1317.083 317.667 / 317.667 Output Total 2100 / 2100 Balance -782.917 / -782.917 317.667 / 317.667 Weight last 48 hrs Weight 104.043 kg Weight 81.647 kg Physical Exam 2 Narrative: General: No acute distress, AO x3 HEENT: PERRLA, pupils bilaterally equal and reactive Chest: Bilateral bronchial breath sounds with decreased air entry in right middle zone, diffuse rhonchi otherwise all over lung juarez CVS: S1-S2 irregularly irregular, no murmurs, no tachycardia, no gallops, no rubs Abdomen: Soft, nontender, no organomegaly, bowel sounds present Neuro: No focal deficits, no facial deformity, AO x3, power 5/5 in all limbs Urinary Catheter Management: Pinedo: Cath Placed During This Visit: yes Reason for Continuing Indwelling Catheter: Accurate Measurement of Urinary Output in Critically Ill Patients Urinary Catheter Date of Insertion: 05/08/23 Urinary Catheter Time of Insertion: 03:10 Data 05/08/23 04:16 05/08/23 04:16 A&P Assessment and plan (1) Hypoxia: (2) Pulmonary embolism: (3) Atrial fibrillation with rapid ventricular response: (4) Large hiatal hernia: (5) Pulmonary cavitary lesion: (6) Lung mass: Plan Hypoxia: Most likely in setting of pulmonary embolism. Patient does have history of cavitary right middle lobe lung mass. Deemed noncancerous on bronchoscopy. Patient to undergo lobectomy at [place]. Appreciate CT results. Check respiratory viral panel. Continue with ipratropium, Xopenex every 6 hours, Pulmicort twice daily. Check sputum culture. Infectious source less likely for now. Hold off on IV antibiotics. Pulmonary embolism: Patient is supposed to be on Xarelto for A-fib. Did not take for last 5 days. For now continue with full dose Lovenox 1 mg/kg body weight every 12 hours. Check lower limb Dopplers. Oxygen supplementation keeping saturation over 90% A-fib RVR: History of cardioversion in past. Continue with home dose of metoprolol. Currently on Cardizem at 10. Start on oral Cardizem 30 every 6. Wean Cardizem drip keeping heart rate below 100. Keep potassium above 4 magnesium above 2 Echocardiogram done. Results awaited. Mild concerns for congestive heart failure. Continue with IV Lasix 60 mg daily for now. Strict input output charting, daily weights. Hypertension: Goal blood pressure less than 140/90 mmHg. Continue with home dose of metoprolol. Decrease home dose of losartan to 50 mg daily. Starting new dose of Cardizem depending on heart rate. Full code Cardiac diet Full dose Lovenox will suffice as DVT prophylaxis Patient's surgery has been rescheduled for [address] [place] [address] Newton for right lower lobe lobectomy. Given new diagnosis of pulmonary embolism patient would most likely need to postpone the surgery further. Review of records: Patient had an deficiency anemia, peptic ulcer disease, PET positive lung mass, bronchoscopy has been done, BAL cultures were negative, patient also has hiatal hernia, Attestations 2 Medical Necessity Statement*: Requires further hospitalization for management of hypoxia in setting of new pulm embolism, A-fib with RVR on Cardizem drip while being transitioned to oral Cardizem Diagnoses Hypoxia R09.02 Pulmonary embolism I26.99 Atrial fibrillation with rapid ventricular response I48.91 Large hiatal hernia K44.9 Pulmonary cavitary lesion J98.4 Lung mass R91.8
[2023-05-08 13:54] LABS: D Dimer 0.47 ug/mLFEU (0-0.59)
[2023-05-08 14:18] LABS: Iron 19 ug/dL (37-145); Percent Saturation 5.7 % (20-50); Thyroid Stimulating Hormone 0.85 uIU/mL (0.27-4.20); Total Iron Binding Capacity 332 mcg/dl; Unsaturated Iron Binding 313 ug/dL (112-347); Vitamin B12 1540 pg/mL (232-1245)
[2023-05-08] MEDS: levalbuterol 0.63 mg/3 mL Neb INHALATION ×2 (15:41→20:11)
[2023-05-08] MEDS: dilTIAZem 30 mg Tablet PO ×2 (15:52→19:47)
[2023-05-08 16:04] LABS: Adenovirus Not Detected (NOT DETECT); Chlamydia Pneumoniae Not Detected (NOT DETECT); Coronavirus 229E,HKU1,NL63,OC4 Not Detected (NOT DETECT); Human Metapneumovirus Not Detected (NOT DETECT); Human Rhinovirus/Enterovirus Not Detected (NOT DETECT); Influenza A Not Detected (NOT DETECT); Influenza A H1 Not Detected (NOT DETECT); Influenza A H1-2009 Not Detected (NOT DETECT); Influenza A H3 Not Detected (NOT DETECT); Influenza B Not Detected (NOT DETECT); Mycoplasma Pneumoniae Not Detected (NOT DETECT); Parainfluenza Virus Type 1 Not Detected (NOT DETECT); Parainfluenza Virus Type 2 Not Detected (NOT DETECT); Parainfluenza Virus Type 3 Not Detected (NOT DETECT); Parainfluenza Virus Type 4 Not Detected (NOT DETECT); Respiratory Syncytial Virus B Not Detected (NOT DETECT); SARS-COV-2 Not Detected (NOT DETECT)
[2023-05-08 16:17] LABS: Respiratory Syncytial Virus A Detected (NOT DETECT)
[2023-05-08] MEDS: pantoprazole DR 40 mg Tablet PO (18:05)
[2023-05-08] MEDS: methylPREDNISolone sod succ 40 mg/mL INJ IVP (18:06)
[2023-05-08] MEDS: budesonide 0.5 mg/2 mL Neb INHALATION (20:12)
--- NOTE | 2023-05-08 23:18 | PC.NURSE ---
Patient stated that she would like to continue her home medication cephalexin 500mg capsule q daily. Dr Alvarez notified and said ok. Order put in.
--- NOTE | 2023-05-08 23:43 | USCV_ITS ---
Rodrigue Marsha Age: 68 Gender: F : 1955 Exam Date: 05/08/2023 02:36 Ordering Phys: Ade Alvarez MD Technologist: HIGINIO Exam Location: [facility] [place] Indication: SOB, RLL mass, history of Afib, HTN, BP: 211 / 118 HR: 88 Rhythm: Atrial fibrillation Technical Quality: Adequate MEASUREMENTS (Male / Female) Normal Values 2D ECHO LV Diastolic Diameter PLAX 4.3 cm 4.2 - 5.9 / 3.9 - 5.3 cm LV Systolic Diameter PLAX 3.0 cm IVS Diastolic Thickness 1.2 cm 0.6 - 1.0 / 0.6 - 0.9 cm IVS Systolic Thickness 1.3 cm LVPW Diastolic Thickness 1.4 cm 0.6 - 1.0 / 0.6 - 0.9 cm LVPW Systolic Thickness 1.0 cm LVOT Diameter 1.8 cm LV Ejection Fraction 2D Teich 57.1 % LV Ejection Fraction MOD 2C 58.1 % LV Ejection Fraction 2C AL 56.7 % LA Diameter 3.8 cm LA Width 4.2 cm LA Height 5.5 cm RA Width 5.0 cm RA Height 5.8 cm Aorta at Sinotubular Diameter 2.6 cm IVC Diameter 1.8 cm M-MODE Aortic Annulus Diameter 2.9 cm LA Ao Ratio MM 1.5 MV E Point Septal Separation 0.0 cm DOPPLER AV Peak Velocity 162.0 cm/s LVOT Peak Velocity 103.0 cm/s AV Area Cont Eq vti 1.6 cm squared AV Area Cont Eq pk 1.7 cm squared MV Area PHT 3.7 cm squared MV E' Velocity 64.0 cm/s Mitral E to MV E' Ratio 10.1 Mitral E to LV E' Lateral Ratio 9.9 Mitral E to LV E' Septal Ratio 10.3 TR Peak Velocity 277.0 cm/s TR Peak Gradient 30.7 mmHg TV Peak E Velocity 92.0 cm/s Right Atrial Pressure 10.0 mmHg Pulmonary Artery Systolic Pressu 40.7 mmHg PV Peak Velocity 99.0 cm/s RV Acceleration Time 0.1 s RV Ejection Time 0.3 s RV AcT/ET 0.3 FINDINGS Left Ventricle Normal left ventricular size and systolic function, EF 57 %. No regional wall motion abnormalities. Right Ventricle The right ventricle is normal in size and function. Right Atrium Mildly increased right atrial size. Left Atrium Mildly increased left atrial size. Mitral Valve No gross abnormalities noted Aortic Valve Thickened aortic valve. Tricuspid Valve No gross abnormalities noted Pulmonic Valve Pulmonic valve not well visualized. Pericardium Normal pericardium without effusion. Aorta Normal ascending aorta dimension. IVC Normal inferior vena cava. CONCLUSIONS Normal left ventricular size and systolic function, EF 57 %. No regional wall motion abnormalities. Mild biatrial enlargement. Thickened aortic valve. There is no pericardial effusion. There are no intracardiac masses. No similar previous studies are available for comparison Dr Mariana Davidson MD FACC (Electronically Signed) Final Date: 08 May 2023 14:40 S
[2023-05-09] VITALS (9 sets, daily range): BP systolic 111–131; BP diastolic 63–90; PULSE 66–87; RESP 15–24; TEMP 36.4–36.6; O2SAT 91–96; BMI 39.3
[2023-05-09] MEDS: cephALEXin 500 mg Capsule PO ×2 (00:16→08:44)
[2023-05-09] MEDS: ipratropium 0.5 mg/2.5 mL Neb INHALATION ×3 (00:49→09:04)
[2023-05-09] MEDS: dilTIAZem 30 mg Tablet PO ×2 (01:55→08:38)
[2023-05-09] MEDS: methylPREDNISolone sod succ 40 mg/mL INJ IVP ×2 (01:55→11:36)
[2023-05-09] MEDS: enoxaparin 100 mg/mL Syringe SUBCUT ×2 (01:56→13:35)
[2023-05-09] MEDS: levalbuterol 0.63 mg/3 mL Neb INHALATION ×2 (02:42→09:04)
[2023-05-09 04:00] LABS: Hematocrit 37.6 % (36-47); Lymphocytes # 0.6 10^3/uL (0.8-4.8); Lymphocytes % 7.6 %; Mean Corpuscular HGB Conc 31.1 g/dL (30-55); Mean Corpuscular Hemoglobin 31.5 pg (27-33); Mean Corpuscular Volume 101.3 fl (85-98); Mean Platelet Volume 10.2 fL (7.4-10.4); Monocytes # 0.3 10^3/uL (0.2-0.9); Monocytes % 3.9 %; Neutrophils # 6.93 10^3/uL (1.8-7.7); Nucleated Red Blood Cells % 0 %; Platelet Count 348 10^3/cmm (157-399); Red Blood Count 3.71 10^6/uL (3.85-5.65); Red Cell Distribution Width 14.8 % (12.1-15.1); White Blood Count 7.88 10^3/uL (3.29-11.43)
[2023-05-09 05:09] LABS: Folate Level > 20.0 ng/mL (4.8-37.3)
--- NOTE | 2023-05-09 05:51 | PC.NURSE ---
patient iv cardizem not given. patient switched to PO cardizem.
[2023-05-09 06:03] LABS: Alanine Aminotransferase 22 U/L (0-33); Albumin Level 3.9 g/dL (3.5-5.2); Alkaline Phosphatase 78 U/L (35-105); Anion Gap 16.7 (5-19); Aspartate Amino Transferase 23 U/L (0-32); Blood Urea Nitrogen 30 mg/dL (8-23); Calcium 8.8 mg/dL (8.5-10.5); Carbon Dioxide 28 mmol/L (22-29); Chloride 94 mmol/L (98-107); Chol HDL Ratio 4.86 mg/dL (0.0-4.40); Cholesterol 180 mg/dL (0-200); Globulin 3.2 g/dL (1.3-4.6); Glomerular Filtration Rate 55.1 mL/min (90-130); Glucose 290 mg/dL (65-115); HDL Cholesterol 37 mg/dL (60-100); LDL Cholesterol Calculated 115 mg/dL (50-129); Osmolality Calculated 297 mOsm/kg (285-295); Phosphorus 3.1 mg/dL (2.5-4.5); Potassium 3.7 mmol/L (3.5-5.1); Sodium 135 mmol/L (136-145); Total Bilirubin 0.3 mg/dL (0.15-1.2); Total Protein 7.1 g/dL (6.6-8.7); Triglycerides 139 mg/dL (0-150); VLDL Cholestrol Calculation 28 mg/dL (0-30)
[2023-05-09 06:04] LABS: Estmated Average Glucose 114; Hemoglobin A1C 5.6 % (4.0-6.0)
[2023-05-09] MEDS: pantoprazole DR 40 mg Tablet PO (08:38)
[2023-05-09] MEDS: losartan 50 mg Tablet PO (08:38)
[2023-05-09] MEDS: sennosides-docusate Tablet 1 TAB PO (08:38)
[2023-05-09] MEDS: zinc gluconate 50 mg Tablet PO (08:38)
[2023-05-09] MEDS: metoprolol succinate ER (24 HR) 100 mg Tablet 200 MG PO (08:38)
[2023-05-09] MEDS: magnesium oxide 400 mg tablet PO (08:38)
[2023-05-09] MEDS: potassium chloride ER 20 mEq Tablet PO (08:39)
[2023-05-09] MEDS: folic acid 1 mg Tablet PO (08:39)
[2023-05-09] MEDS: acetaminophen 500 mg Tablet PO (08:39)
[2023-05-09] MEDS: budesonide 0.5 mg/2 mL Neb INHALATION (09:04)
--- NOTE | 2023-05-09 09:36 | P.DS_ITS ---
Discharge Providers Date of Admission: 05/07/23 23:34 Date of Discharge: May 09, 2023 Attending Provider at Admission: Ade Alvarez MD Attending Provider at Discharge: Henry Anderson MD Primary Care Provider: Madi Reeves MD Diagnoses at Discharge Discharge Diagnosis (1) Hypoxia: Status: Acute (2) Pulmonary embolism: Status: Acute (3) Atrial fibrillation with rapid ventricular response: Status: Acute (4) Large hiatal hernia: Status: Acute (5) Pulmonary cavitary lesion: Status: Acute (6) Lung mass: Status: Acute (7) RSV (respiratory syncytial virus infection): Status: Acute Reason for Visit Reason for Visit: SOB Hospital Course Hospital Course Marsha Husain is a 68 year old female with history of right lung mass, following up with Dr. Greenberg, she was scheduled for right lower lobe lobectomy with Dr. Mccoy at [facility] on 05/08, pulmonary embolism on Xarelto, rheumatoid arthritis, iron deficiency anemia who has been off her Xarelto for last 5 days for lobectomy to be done on 05/08 presented on 05/07 night with fever and worsening shortness of breath over the last 3 days. On recent visit in the ER she was found to be in A-fib with RVR. Patient was started on Cardizem drip. Lab work done on admission was consistent with new right upper lobe pulmonary embolism, RSV bronchitis. Cardizem drip was later transitioned to oral Cardizem. Patient responded well to the treatment. She has been discharged in medically stable condition on oral Cardizem, continuation of oral metoprolol. She is to take Xarelto for next 3 weeks as per PE protocol and then transition over to her home dose of Xarelto 20 mg daily after 3 weeks. Her dose of losartan has been decreased to 50 mg daily. Hydrochlorothiazide has been withheld. Discharge plan discussed in detail with the patient. She is to follow-up with a primary care provider within next 1 week and with pulmonology within next 3 weeks. She will also follow-up with her outpatient surgeon and [place]. Physical Exam Narrative: General: No acute distress, AO x3 HEENT: PERRLA, pupils bilaterally equal and reactive Chest: Bilateral bronchial breath sounds with decreased air entry in right middle zone, diffuse rhonchi otherwise all over lung juarez CVS: S1-S2 irregularly irregular, no murmurs, no tachycardia, no gallops, no rubs Abdomen: Soft, nontender, no organomegaly, bowel sounds present Neuro: No focal deficits, no facial deformity, AO x3, power 5/5 in all limbs Urinary Catheter Management: Pinedo: Cath Placed During This Visit: yes Reason for Continuing Indwelling Catheter: Accurate Measurement of Urinary Output in Critically Ill Patients Urinary Catheter Date of Insertion: 05/08/23 Urinary Catheter Time of Insertion: 03:10 Discharge Data Studies Completed and Pending Completed Studies During Hospitalization Category Date Time Status CTA chest [CT angio chest 82529] Stat Cat Scan 05/07/23 22:18 Completed CV. echo complete* [id number] Routine Ultrasound 05/08/23 23:43 Completed Pending at discharge Category Date Time Status MAG [Magnesium] AM LABS Lab 05/10/23 04:00 Ordered MAG [Magnesium] AM LABS Lab 05/11/23 04:00 Ordered PHOS [Phosphorus] AM LABS Lab 05/10/23 04:00 Ordered PHOS [Phosphorus] AM LABS Lab 05/11/23 04:00 Ordered Radiology Impressions Chest CTA 05/07/23 22:18 IMPRESSION: 1. Limited evaluation due to significant respiratory motion, but there appears to be pulmonary emboli within a proximal right upper lobe segmental pulmonary artery branch and within multiple predominantly upper lobe subsegmental pulmonary artery branches bilaterally. 2. New multifocal ground-glass opacities throughout the bilateral lungs as well as some nodular tree-in-bud type opacities in the right upper lobe, and diffuse airway thickening. Findings could be represent combination of pulmonary infarcts, infectious or inflammatory process, and/or neoplasm given right lower lobe mass. 3. Centrally cavitary right lower lobe lesion appears similar to 03/15/2023. 4. THIS REPORT CONTAINS FINDINGS THAT MAY BE CRITICAL TO PATIENT CARE. The findings were verbally communicated via telephone conference with BOAT TENDER Ivonne Pavon at 2:06 AM HOSPICE BEREAVEMENT COORDINATOR on 05/08/2023. The findings were acknowledged and understood. Echocardiogram: CONCLUSIONS Normal left ventricular size and systolic function, EF 57 %. No regional wall motion abnormalities. Mild biatrial enlargement. Thickened aortic valve. There is no pericardial effusion. There are no intracardiac masses. No similar previous studies are available for comparison Dr Mariana Davidson MD [facility] (Electronically Signed) Final Date: 08 May 2023 Laboratory Results WBC 7.88 10^3/uL (3.29-11.43) 05/09/23 03:15 RBC 3.71 10^6/uL (3.85-5.65) L 05/09/23 03:15 Hgb 11.70 g/dL (11.27-16.99) 05/09/23 03:15 Hct 37.6 % (36-47) 05/09/23 03:15 MCV 101.3 fl (85-98) H 05/09/23 03:15 MCH 31.5 pg (27-33) 05/09/23 03:15 MCHC 31.1 g/dL (30-55) 05/09/23 03:15 RDW 14.8 % (12.1-15.1) 05/09/23 03:15 Plt Count 348 10^3/cmm (157-399) 05/09/23 03:15 MPV 10.2 fL (7.4-10.4) 05/09/23 03:15 Neut % (Auto) 88.0 % 05/09/23 03:15 Lymph % (Auto) 7.6 % 05/09/23 03:15 [place] % (Auto) 3.9 % 05/09/23 03:15 Eos % (Auto) 0.0 % 05/09/23 03:15 Baso % (Auto) 0.0 % 05/09/23 03:15 Neut # (Auto) 6.93 10^3/uL (1.8-7.7) 05/09/23 03:15 Lymph # (Auto) 0.6 10^3/uL (0.8-4.8) L 05/09/23 03:15 [place] # (Auto) 0.3 10^3/uL (0.2-0.9) 05/09/23 03:15 Eos # (Auto) 0.0 10^3/uL (0.0-0.8) 05/09/23 03:15 Baso # (Auto) 0.0 10^3/uL (0.0-0.1) 05/09/23 03:15 Nucleated RBC % (auto) 0 % 05/09/23 03:15 Nucleated RBCs # 0.0 /100WBC 05/09/23 03:15 D-Dimer 0.47 ug/mLFEU (0-0.59) 05/08/23 04:16 Specimen Type Arterial 05/07/23 22:32 Sample Site Radial, right 05/07/23 22:32 ABG pH 7.42 (7.35-7.45) 05/07/23 22:32 ABG pCO2 45.4 mmHg (35-45) H 05/07/23 22:32 ABG pO2 69.9 mmHg (80.0-100.0) L 05/07/23 22:32 ABG HCO3 29.4 mmol/L (22-26) H 05/07/23 22:32 ABG O2 Saturation 95.4 05/07/23 22:32 ABG Base Excess 4.3 mmol/L (-2.0-2.0) H 05/07/23 22:32 Jean Claude Test Pos 05/07/23 22:32 A-a O2 Gradient 3.4 mmHg (5-10) L 05/07/23 22:32 Hematocrit 35.3 % (37-47) L 05/07/23 22:32 Hgb O2 Saturation 92.9 % (95-100) L 05/07/23 22:32 Carboxyhemoglobin 2.2 %THgb (0.4-20.1) 05/07/23 22:32 Methemoglobin 0.4 % (0.4-1.5) 05/07/23 22:32 Total Hemoglobin 11.5 g/dL (12-16) L 05/07/23 22:32 Sodium 140.0 mmol/L (131-143) 05/07/23 22:32 Potassium 4.2 mmol/L (3.5-5.0) 05/07/23 22:32 Glucose 103.0 mg/dL (70-115) 05/07/23 22:32 Ionized Calcium 1.2 mmol/L (1.1-1.4) 05/07/23 22:32 O2 Delivery Device Nc 05/07/23 22:32 O2 Liters/Min 2.0 % 05/07/23 22:32 Manager Company ID [email or web address] 05/07/23 22:32 Sodium 135 mmol/L (136-145) L 05/09/23 03:15 Potassium 3.7 mmol/L (3.5-5.1) 05/09/23 03:15 Chloride 94 mmol/L (98-107) L 05/09/23 03:15 Carbon Dioxide 28 mmol/L (22-29) 05/09/23 03:15 Anion Gap 16.7 (5-19) 05/09/23 03:15 BUN 30 mg/dL (8-23) H 05/09/23 03:15 Creatinine 1.0 mg/dL (0.5-0.9) H 05/09/23 03:15 GFR Calculation 55.1 mL/min (90-130) L 05/09/23 03:15 Glucose 290 mg/dL (65-115) H 05/09/23 03:15 Estimat Average Glucose 114 05/09/23 03:15 Hemoglobin A1c 5.6 % (4.0-6.0) 05/09/23 03:15 Calculated Osmolality 297 mOsm/kg (285-295) H 05/09/23 03:15 Calcium 8.8 mg/dL (8.5-10.5) 05/09/23 03:15 Phosphorus 3.1 mg/dL (2.5-4.5) 05/09/23 03:15 Magnesium 2.0 mg/dL (1.7-2.3) 05/09/23 03:15 Iron 19 ug/dL (37-145) L 05/08/23 04:16 TIBC 332 mcg/dl 05/08/23 04:16 % Saturation 5.7 % (20-50) L 05/08/23 04:16 Unsat Iron Binding 313 ug/dL (112-347) 05/08/23 04:16 Total Bilirubin 0.3 mg/dL (0.15-1.2) 05/09/23 03:15 AST 23 U/L (0-32) 05/09/23 03:15 ALT 22 U/L (0-33) 05/09/23 03:15 Alkaline Phosphatase 78 U/L (35-105) 05/09/23 03:15 Troponin T Baseline 15 ng/L (0-10) H 05/07/23 22:34 Troponin T 120 Minute 13.48 ng/L (0-10) H 05/08/23 01:15 Delta Troponin T -1.52 ABS# (0-10) L 05/08/23 01:15 Troponin T Hi Sens 6Hr 13.30 ng/L (0-10) H 05/08/23 04:16 Troponin T Hi Sens 6Hr Delta -1.70 ng/L (0-12) L 05/08/23 04:16 C-Reactive Protein 56.9 mg/L (0.0-4.9) H 05/08/23 04:16 NT-Pro-B Natriuret Pep 2345 pg/mL (0-125) H 05/07/23 22:34 Total Protein 7.1 g/dL (6.6-8.7) 05/09/23 03:15 Albumin 3.9 g/dL (3.5-5.2) 05/09/23 03:15 Globulin 3.2 g/dL (1.3-4.6) 05/09/23 03:15 Triglycerides 139 mg/dL (0-150) 05/09/23 03:15 Cholesterol 180 mg/dL (0-200) 05/09/23 03:15 LDL Cholesterol, Calc 115 mg/dL (50-129) 05/09/23 03:15 Total VLDL Cholesterol 28 mg/dL (0-30) 05/09/23 03:15 HDL Cholesterol 37 mg/dL (60-100) L 05/09/23 03:15 Cholesterol/HDL Ratio 4.86 mg/dL (0.0-4.40) H 05/09/23 03:15 Vitamin B12 1540 pg/mL (232-1245) H 05/08/23 04:16 Folate > 20.0 ng/mL (4.8-37.3) 05/09/23 03:15 TSH 0.85 uIU/mL (0.27-4.20) 05/08/23 04:16 Urine Color Yellow (Yellow) 05/07/23 23:30 Urine Appearance Sl hazy (CLEAR) A 05/07/23 23:30 Urine pH 5 (5-7) 05/07/23 23:30 Ur Specific [place] 1.025 (1.005-1.030) 05/07/23 23:30 Urine Protein 1+ (Negative) H 05/07/23 23:30 Urine Glucose (UA) Norm (Normal) 05/07/23 23:30 Urine Ketones 1+ (Negative) H 05/07/23 23:30 Urine Blood 2+ (Negative) H 05/07/23 23:30 Urine Nitrate Negative (Negative) 05/07/23 23:30 Urine Bilirubin Neg (Negative) 05/07/23 23:30 Urine Urobilinogen Neg mg/dL (Negative) 05/07/23 23:30 Ur Leukocyte Esterase 1+ (Negative) H 05/07/23 23:30 Urine RBC 5-10 /hpf (0-2) H 05/07/23 23:30 Urine WBC 0-4 /hpf (0-5) H 05/07/23 23:30 Ur Squamous Epith Cells 10-15 /hpf (0-5) H 05/07/23 23:30 Amorphous Sediment Not Reportable 05/07/23 23: Urine Bacteria 1+ /hpf (NONE) H 05/07/23 23: Urine Mucus 2+ /hpf 05/07/23 23:30 Nasal Influ A H1 2008 PCR Not detected (NOT DETECT) 05/08/23 14:05 Adenovirus (PCR) Not detected (NOT DETECT) 05/08/23 14:05 C. pneumoniae DNA (PCR) Not detected (NOT DETECT) 05/08/23 14:05 Coronavirus 229E (PCR) Not detected (NOT DETECT) 05/08/23 14:05 Human Metapneumovir PCR Not detected (NOT DETECT) 05/08/23 14:05 Influenza A (H1) PCR Not detected (NOT DETECT) 05/08/23 14:05 Influenza A (H3) PCR Not detected (NOT DETECT) 05/08/23 14:05 Influenza Type A Ag negative (Negative) 05/07/23 22:22 Influenza Type A (PCR) Not detected (NOT DETECT) 05/08/23 14:05 Influenza Type B Ag negative (Negative) 05/07/23 22:22 Influenza Type B (PCR) Not detected (NOT DETECT) 05/08/23 14:05 M. pneumoniae (PCR) Not detected (NOT DETECT) 05/08/23 14:05 Parainfluenza 1 (PCR) Not detected (NOT DETECT) 05/08/23 14:05 Parainfluenza 2 (PCR) Not detected (NOT DETECT) 05/08/23 14:05 Parainfluenza 3 (PCR) Not detected (NOT DETECT) 05/08/23 14:05 Parainfluenza 4 (PCR) Not detected (NOT DETECT) 05/08/23 14:05 RSV Type A (PCR) Detected (NOT DETECT) A 05/08/23 14:05 RSV Type B (PCR) Not detected (NOT DETECT) 05/08/23 14:05 Entero/Rhino (PCR) Not detected (NOT DETECT) 05/08/23 14:05 SARS-CoV-2 (PCR) Not detected (NOT DETECT) 05/08/23 14:05 SARS-CoV-2 Ag (Rapid) negative (Negative) 05/07/23 22:22 Vitals Last Vital Signs Temp 97.9 F 05/09/23 07:26 Pulse 87 05/09/23 08:00 Resp 16 05/09/23 08:00 BP 131/86 05/09/23 07:26 Pulse Ox 94 05/09/23 08:00 O2 Del Method Room Air 05/09/23 08:00 O2 Flow Rate 2 05/09/23 02:40 Discharge Plan Discharge Patient Disposition: Home Condition: Stable Prescriptions: New ipratropium bromide 0.02 % solution 0.5 mg inhalation Q6H PRN (Reason: shortness of breath or wheezing) Qty: 75 0RF prednisone 10 mg tablet See Taper PO DIRECTED Qty: 42 0RF Taper: predniSONE 60-10 60 mg Daily for 2 Days and 0 Hour 50 mg Daily for 2 Days and 0 Hour 40 mg Daily for 2 Days and 0 Hour 30 mg Daily for 2 Days and 0 Hour 20 mg Daily for 2 Days and 0 Hour 10 mg Daily for 2 Days and 0 Hour Rx Instructions: see taper instructions Xarelto DVT-PE Treat 30d Start 15 mg (42)- 20 mg (9) tablets,dose pack See Protocol PO DAILY Qty: 51 0RF Protocol: Xarelto Dose Pack Condition: Start Dose/Route: 15 mg twice daily Instruction: after 21 days, Condition: Transition to Dose/Route: 20 mg once daily Instruction: thereafter Rx Instructions: Start, 15 mg twice daily for 21 days,; Transition to 20 mg once daily thereafter diltiazem HCl [Cardizem CD] 120 mg capsule,extended release 24hr 120 mg PO DAILY Qty: 30 0RF losartan 50 mg Tablet 50 mg PO DAILY 30 Days Qty: 30 0RF Continued ascorbic acid (vitamin C) 1,000 mg tablet 1 g PO BID zinc gluconate 50 mg tablet 50 mg PO QAM cholecalciferol (vitamin D3) 25 mcg (1,000 unit) capsule 25 mcg PO QAM metoprolol succinate 200 mg tablet extended release 24 hr 200 mg PO QAM [id number] Tablet 1 tab PO BEDTIME cephalexin 500 mg tablet 500 mg PO BEDTIME folic acid 1 mg tablet 1 mg PO BEDTIME bumetanide 1 mg tablet 1 mg PO DAILY PRN (Reason: Edema) potassium chloride 10 mEq tablet,ER particles/crystals 10 meq PO DAILY PRN (Reason: when taking fluid pill) levalbuterol HCl 0.63 mg/3 mL solution for nebulization 0.63 mg inhalation TID Qty: 75 3RF pantoprazole 40 mg Tablet,Delayed Release (Dr/Ec) 40 mg PO BID levalbuterol tartrate 45 mcg/actuation HFA aerosol inhaler 2 inh inhalation Q6H PRN (Reason: Shortness Of Breath) Held methotrexate sodium 2.5 mg tablet See Rx Instructions .ROUTE .COMPLEX Hold Instructions: Resume on 05/23/23. Rx Instructions: Take 6 tablets po q7d on Saturday Xarelto 20 mg tablet 20 mg PO BEDTIME Hold Instructions: Resume on 05/30/23. Discontinued losartan-hydrochlorothiazide 100-25 mg tablet 1 tab PO QAM Discharge Orders: Discharge Order (Routine); Ordered 05/09/23 Ordered By: Henry Anderson Referrals: Datar,Tavares Anaya MD [Physician] - 05/24/23 8:30 am Madi Reeves MD [Primary Care Provider] - 05/16/23 2:45 pm Discharge Diet: Cardiac Discharge Activity: Increase activity as tolerated Patient Instructions: Ipratropium (By breathing) (Atrovent HFA), Prednisone (By mouth) (predniSONE Intensol, Prednicot, Deltasone, Hiram), Losartan (By mouth) ( Cozaar), Rivaroxaban (By mouth) (Xarelto, Xarelto Starter Pack), A-fib (Atrial Fibrillation) (DC), Pulmonary Embolism (DC), Hypoxia (GEN), Opioid Safety Activity Restrictions/Additional Instructions: Cardizem has been added to her medication list. Metoprolol has been continued. Xarelto dose has been changed for now. Take 50 mg twice daily for next 3 weeks followed by 20 mg daily. Dose of Xarelto has been changed to 50 mg daily. Do not take hydrochlorothiazide anymore. Please follow-up with a primary care provider within next 1 week, with pulmonary within next 1 month. Nebulization has been added with ipratropium along with home dose of Xopenex. Take steroid taper as directed. Hold off on taking methotrexate for next 2 weeks. Discharge Attestations Time Spent in Discharge Care*: greater than 30 min Specific Discharge Activities: educating patient, discussing with pcp/other providers, discussing with medical case manager/social workers/dc planners, documenting/other paperwork and evaluating patient/reviewing data Quality Metrics Clinical Quality Measures [ Venous Thromboembolism { Contraindication to Overlap Therapy: None; Overlap threrpy ordered; VTE Discharge Education: Education about anticoagulant ther apy/Care Notes given, Education about treatment options/disease process, Medication side effects education, Follow-up arranged, Other; Deep Vein Thrombosis/Pulmonary Embolism Present on Admission: Yes;}] Coding Level of Care Code 41327 Total time (in minutes) for Discharge: 60 Diagnoses Hypoxia R09.02 Pulmonary embolism I26.99 Atrial fibrillation with rapid ventricular response I48.91 Large hiatal hernia K44.9 Pulmonary cavitary lesion J98.4 Lung mass R91.8 RSV (respiratory syncytial virus infection) B33.8
--- NOTE | 2023-05-09 10:10 | PC.PHAR ---
pt states she takes care of her own medications-pt has rxs filled for medrol dose pack and levaquin 500mg daily filled on 05/07/23 joot states rxs not picked up-
--- NOTE | 2023-05-09 14:25 | PC.NURSE ---
discharge papers educated pt on her new meds, dose changes, continued meds, hold meds and dc med. called [facility] pharmacy in [place]ime box for ptJenn kaplan as she requested. the rest of her meds are transmitted to [facility] in [place].
== END 2023-05-09 14:25 | disposition home or self-care (01) | DRG 176 ==
LOC: ER 23:34 → CSU 23:46
PROVIDERS: Physician Assistant; Admitting Provider Internal Medicine; Emergency Provider Internal Medicine; PCP Family Medicine; Visit Provider Student in an Organized Health Care Education/Training Program
DX: I26.99 Other pulmonary embolism without acute cor pulmonale (principal); I48.91 Unspecified atrial fibrillation; K44.9 Diaphragmatic hernia without obstruction or gangrene; J98.4 Other disorders of lung; J20.5 Acute bronchitis due to respiratory syncytial virus; R09.02 Hypoxemia; M06.9 Rheumatoid arthritis, unspecified; D50.9 Iron deficiency anemia, unspecified; I10 Essential (primary) hypertension; R91.8 Other nonspecific abnormal finding of lung field; Z11.52 Encounter for screening for COVID-19; Z87.11 Personal history of peptic ulcer disease
CPT/HCPCS: 36415; 36600; 51702; 71275; 80048; 80051; 80053; 80061; 81001; 82330; 82607; 82746; 82805; 83036; 83540; 83550; 83735; 83880; 84100; 84443; 84484; 85025; 85378; 86140; 87426; 87486; 87581; 87633; 87804; 93005; 93306; 94640; 94760; 96365; 96372; 96375; 96376; 99285; A9270; J1650; J1940; J2920; J2930; J3490; J7030; J7614; J7626; J7644; Q9967

== ENCOUNTER 2023-05-20 00:27 | Observation (INO) | payer MEDICARE, BC, SELFPAY ==
[2023-05-20] VITALS (22 sets, daily range): BP systolic 131–161; BP diastolic 78–101; PULSE 78–112; RESP 16–24; TEMP 36.3–37.4; O2SAT 89–97
--- NOTE | 2023-05-20 00:37 | ECG_ITS ---
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 Measurements Intervals [place] Rate: 116 P: 0 NM: 0 QRS: 80 QRSD: 93 T: 88 QT: 356 QTc: 496 Interpretive Statements ATRIAL FIBRILLATION WITH RAPID VENTRICULAR RESPONSE POSSIBLE RIGHT VENTRICULAR CONDUCTION DELAY [RSR (QR) IN V1/V2] MODERATE ST DEPRESSION [0.05+ mV ST DEPRESSION] Compared to ECG 05/08/2023 05:08:59 ST (T wave) deviation now present Electronically Signed On 05-20-2023 9:10:30 PARTS SALES REPRESENTATIVE by Beto Hernández M.D. [email or web address]
--- NOTE | 2023-05-20 00:40 | XRR_ITS ---
PROCEDURE INFORMATION: Exam: XR Chest Exam date and time: 05/20/2023 12:50 AM Age: 68 years old Clinical indication: Fever and shortness of breath; Prior surgery; Surgery date: 1-6 months; Surgery type: Lung biopsy; Patient HX: C/O SOB with fever. History of RT lung mass. TECHNIQUE: Imaging protocol: Radiologic exam of the chest. Views: 1 view. COMPARISON: CT angio chest [id number] 05/08/2023 12:08 AM FINDINGS: Lungs: There are some subtle increased interstitial opacities present in the lung bases bilaterally, findings that could represent a bilateral basilar atelectasis versus interstitial pneumonitis. Pleural spaces: Unremarkable. No pleural effusion. No pneumothorax. Heart/Mediastinum: Unremarkable. No cardiomegaly. Bones/joints: Unremarkable. Soft tissues: There is a hernia present measuring approximately 7.6 cm transverse diameter. XR/XR chest 1V portable [id number] IMPRESSION: 1. Subtle increased interstitial opacities in the lung bases bilaterally could represent atelectasis although bilateral basilar interstitial pneumonitis can not be excluded. 2. Hiatal hernia
[2023-05-20] MEDS: ipratropium-albuterol 3 mL Neb INHALATION (00:46)
[2023-05-20 00:55] LABS: Basophils % 0.1 %; Eosinophils % 0.2 %; Hematocrit 36.4 % (36-47); Lymphocytes # 0.3 10^3/uL (0.8-4.8); Lymphocytes % 1.7 %; Mean Corpuscular HGB Conc 31.6 g/dL (30-55); Mean Corpuscular Hemoglobin 31.9 pg (27-33); Mean Corpuscular Volume 100.8 fl (85-98); Mean Platelet Volume 9.5 fL (7.4-10.4); Monocytes # 1.8 10^3/uL (0.2-0.9); Monocytes % 11.5 %; Neutrophils # 13.21 10^3/uL (1.8-7.7); Neutrophils % 85.5 %; Nucleated Red Blood Cells % 0.1 %; Platelet Count 394 10^3/cmm (157-399); Red Blood Count 3.61 10^6/uL (3.85-5.65); Red Cell Distribution Width 15.3 % (12.1-15.1); White Blood Count 15.46 10^3/uL (3.29-11.43)
[2023-05-20 00:59] LABS: ABG PCO2 44.6 mmHg (35-45); ABG PH Result 7.47 (7.35-7.45); Arterial Blood Gas Hematocrit 35.5 % (37-47); Base Excess ABG 7.5 mmol/L (-2.0-2.0); Blood Gas Allen Test Pos; Blood Gas Sample Site Radial, left; Blood Gas Sample Type Arterial; Carboxyhemoglobin 1.4 %THgb (0.4-20.1); HCO3 ABG 32.1 mmol/L (22-26); HGB O2 Sat 94.1 % (95-100); Methemoglobin 0.3 % (0.4-1.5); Oxygen Device ROOM AIR; PO2 ABG 69.5 mmHg (80.0-100.0); Total Hemoglobin 11.6 g/dL (12-16)
[2023-05-20 01:11] LABS: Lactic Sepsis W/Reflex 1.9 mmol/L (0.5-2.2)
[2023-05-20 01:13] LABS: Troponin(5th) Baseline 17 ng/L (0-10)
[2023-05-20] MEDS: piperacillin-tazobactam 4.5 GM in sodium chloride 0.9% (plus) 50 ML IV (01:23)
[2023-05-20] MEDS: methylPREDNISolone sod succ 125 mg/2 mL INJ IVP (01:24)
[2023-05-20 01:34] LABS: Alanine Aminotransferase 21 U/L (0-33); Albumin Level 3.6 g/dL (3.5-5.2); Alkaline Phosphatase 63 U/L (35-105); Anion Gap 11.4 (5-19); Aspartate Amino Transferase 22 U/L (0-32); Blood Urea Nitrogen 14 mg/dL (8-23); Calcium 9.2 mg/dL (8.5-10.5); Carbon Dioxide 31 mmol/L (22-29); Chloride 101 mmol/L (98-107); Creatinine Clr Calc Pharmacy 75.8158; Globulin 2.6 g/dL (1.3-4.6); Glomerular Filtration Rate 83.2 mL/min (90-130); Glucose 144 mg/dL (65-115); NT Pro B Type Natriuretic Pept 1682 pg/mL (0-125); Osmolality Calculated 291 mOsm/kg (285-295); Potassium 4.4 mmol/L (3.5-5.1); Sodium 139 mmol/L (136-145); Total Bilirubin 0.3 mg/dL (0.15-1.2); Total Protein 6.2 g/dL (6.6-8.7)
--- NOTE | 2023-05-20 01:59 | P.HP_ITS ---
Providers/Chief Complaint 2 Primary Care Provider: Madi Reeves MD Chief Complaint: SOB, fever History of Present Illness Marsha Husain is a 68 year old female with history of right lung mass, following up with Dr. Paz, she was scheduled for right lower lobe lobectomy with Dr. Mccoy at [place] May 29, 2023, does not use any oxygen at home, was recently discharged from the hospital after management of acute pulm embolism, she is still on loading dose of Xarelto presented with chief complaint of worsening of shortness of breath and high-grade fever. Patient is stating that her symptoms started on 05/19 with worsening of shortness of breath with high-grade fever 104 she was drenching muscle aches, lethargy and fatigue with common cold symptoms, she is also endorsing mild chest discomfort when taking deep breaths midsternally, no nausea, vomiting or diarrhea. She is bringing up much sputum as well Currently she is requiring 2 L, afebrile, respiratory panel positive for influenza A Because of recent admission she was given vancomycin and Zosyn in the ER Review of Systems 2 Const: Reports: fever(s) Eyes: Denies: change in vision ENMT: Denies: throat pain Card: Reports: chest pain Resp: Reports: dyspnea GI: Denies: abdominal pain : Denies: flank pain Musc: Denies: neck pain Medications/Allergies Home Medications Medication Instructions Recorded Confirmed Last Taken Type ascorbic acid (vitamin C) 1,000 mg 1 g PO BID 10/18/21 05/20/23 05/19/23 19:00 History tablet cephalexin 500 mg tablet 500 mg PO BEDTIME 10/18/21 05/20/23 05/19/23 19:00 History cholecalciferol (vitamin D3) 25 25 mcg PO QAM 10/18/21 05/20/23 05/19/23 08:00 History mcg (1,000 unit) capsule folic acid 1 mg tablet 1 mg PO BEDTIME 10/18/21 05/20/23 05/19/23 19:00 History methotrexate sodium 2.5 mg tablet See Rx Instructions .Route .COMPLEX 10/18/21 05/20/23 05/01/23 History metoprolol succinate 200 mg 200 mg PO QAM 10/18/21 05/20/23 05/19/23 08:00 History tablet,extended release 24 hr [id number]-[id number] tablet 1 tab PO BEDTIME 10/18/21 05/20/23 05/19/23 19:00 History zinc gluconate 50 mg tablet 50 mg PO QAM 10/18/21 05/20/23 05/19/23 19:00 History bumetanide 1 mg tablet 1 mg PO DAILY PRN Edema 01/29/23 05/20/23 02/04/23 History levalbuterol HCl 0.63 mg/3 mL 0.63 mg (3 mL) inhalation TID #75 02/08/23 05/20/23 05/19/23 19:00 Rx solution for nebulization mL potassium chloride 10 mEq 10 meq PO DAILY PRN when taking 03/05/23 05/20/23 Unknown History tablet,extended release(part/cryst) fluid pill pantoprazole 40 mg tablet,delayed 40 mg PO BID 05/08/23 05/20/23 05/19/23 19:00 History release diltiazem HCl 120 mg 120 mg PO DAILY #30 caps 05/09/23 05/20/23 05/20/23 03:12 Rx capsule,extended release 24 hr (Cardizem CD) ipratropium bromide 0.02 % 0.5 mg (2.5 mL) inhalation Q6H PRN 05/09/23 05/20/23 05/19/23 19:00 Rx solution for inhalation shortness of breath or wheezing #75 mL levalbuterol tartrate 45 2 inh inhalation Q6H PRN Shortness 05/09/23 05/20/23 05/19/23 19:00 History mcg/actuation aerosol inhaler Of Breath losartan 50 mg tablet 50 mg PO DAILY 30 days #30 tabs 05/09/23 05/20/23 05/19/23 08:00 Rx prednisone 10 mg tablet See Taper PO DIRECTED #42 tabs 05/09/23 05/20/23 05/19/23 08:00 Rx rivaroxaban 15 mg (42)-20 mg (9) See Protocol PO DAILY #51 ea 05/09/23 05/20/23 05/19/23 08:00 Rx tablets in a starter pack (Xarelto DVT-PE Treatment 30-Day Starter) rivaroxaban 20 mg tablet (Xarelto) 20 mg PO BEDTIME 05/09/23 05/20/23 Unknown History Allergies Allergy/AdvReac Type Severity Reaction Status Date / Time No Known Allergies Allergy Verified 05/20/23 03:10 PFSH Acute 2 PFSH: Medical History Chronic bronchitis History of atrial fibrillation Atrial fibrillation Peptic ulcer disease with his history of bleeding ulcer Rheumatoid arthritis Hypertension History of staph infection 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 Iron deficiency anemia Surgical History History of lung biopsy History of esophagogastroduodenoscopy (EGD) 07/2015 History of colonoscopy 12/2014 History of carpal tunnel surgery Bilateral Family History Grandmother CAD (coronary artery disease) Diabetes Mother CAD (coronary artery disease) Cancer Leukemia Diabetes Grandfather Cancer Father Cancer Bladder cancer Other Hypertension Denies family history of Clotting disorder Dementia Hyperlipidemia Psychiatric illness Chronic kidney disease (CKD) Suicide Anesthesia complication Bleeding disorder Lung disease Stroke Social History Smoking and tobacco/nicotine status: never used tobacco/nicotine Alcohol intake: never Vitals/I&O/Wt Last Vital Signs Temp 98.9 F 05/20/23 00:37 Pulse 100 05/20/23 01:56 Resp 24 H 05/20/23 01:56 BP 147/78 05/20/23 01:56 Pulse Ox 97 05/20/23 01:56 O2 Del Method Nasal Cannula 05/20/23 01:56 O2 Flow Rate 2 05/20/23 01:56 Weight last 48 hrs Weight 99.79 kg Physical Exam 2 Narrative: Awake and alert Euvolemic Currently on 2 L GCS 15 No active crackles or wheezing Abdomen soft No active chest pain Pleasant and cooperative Appears stated age S1, S2 Data 05/20/23 04:08 05/20/23 04:08 Micro: Microbiology 05/20/23 01:02 Blood Culture - Preliminary Blood SPECIMEN COLLECTED 05/20/23 01:00 Blood Culture - Preliminary Blood SPECIMEN COLLECTED A&P Assessment and plan (1) Pulmonary embolism: (2) Large hiatal hernia: (3) Iron deficiency anemia: Qualifiers: Iron deficiency anemia type: other iron deficiency Qualified Code(s): D 50.8 - Other iron deficiency anemias (4) Lung mass: (5) Pulmonary cavitary lesion: (6) Hypoxia: (7) Pneumonia: (8) Influenza A: Plan Bronchitis related to influenza A Underlying history of right lung mass, rheumatoid arthritis iron-deficiency anemia Recent diagnosis of RSV bronchitis Acute hypoxia Currently requiring 2 L Patient is scheduled for pulmonary intervention on May 29, 2023 at [place] Currently afebrile Noticed fever at home No active sign of sepsis Recently got diagnosed with PE she is still taking a loading dose of Xarelto 50 mg twice a day for 3 weeks She is full code A-fib without RVR continue AV joaquin blocking agent Cardiac diet DVT prophylaxis covered Attestations 2 Medical Necessity Statement*: Anticipating discharge within 48 hours if remains afebrile neurological: Improved Diagnoses Pulmonary embolism I26.99 Large hiatal hernia K44.9 Other iron deficiency anemia D50.8 Iron deficiency anemia type: other iron deficiency Lung mass R91.8 Pulmonary cavitary lesion J98.4 Hypoxia R09.02 Pneumonia J18.9 Influenza A J10.1
[2023-05-20 02:35] LABS: Procalcitonin 0.12 ng/mL (0-0.5)
--- NOTE | 2023-05-20 02:44 | ED_ITS ---
HPI - SOB/Dyspnea 2 General: Chief Complaint: Shortness of Breath/Dyspnea Stated Complaint: SOB, fever Time Seen by Provider: 05/20/23 00:36 History of Present Illness: HPI Narrative: 68-year-old female who was admitted to [facility] last week for pulmonary embolus, hypoxic respiratory failure. She has been taking her Xarelto. She had been feeling well until yesterday, when she began to get short of breath again. She ran a temperature of 101.4 at home. She has had a cough without sputum production. She is felt generally ill. She has had some chest discomfort. Associated symptoms: Reports chest pain, fever(s) and nausea; Deny abdominal pain, palpitations or vomiting Review of Systems 2 Const: Reports: fever(s) and chills Eyes: Denies: change in vision ENMT: Denies: throat pain Card: Reports: chest pain; Denies: palpitations Resp: Reports: dyspnea and non-productive cough GI: Reports: nausea; Denies: abdominal pain or vomiting Skin/Breast: Denies: rash PFSH ED 2 PFSH: Medical History Chronic bronchitis History of atrial fibrillation Atrial fibrillation Peptic ulcer disease with his history of bleeding ulcer Rheumatoid arthritis Hypertension History of staph infection 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 Iron deficiency anemia Surgical History History of lung biopsy History of esophagogastroduodenoscopy (EGD) 07/2015 History of colonoscopy 12/2014 History of carpal tunnel surgery Bilateral Family History Grandmother CAD (coronary artery disease) Diabetes Mother CAD (coronary artery disease) Cancer Leukemia Diabetes Grandfather Cancer Father Cancer Bladder cancer Other Hypertension Denies family history of Clotting disorder Dementia Hyperlipidemia Psychiatric illness Chronic kidney disease (CKD) Suicide Anesthesia complication Bleeding disorder Lung disease Stroke Social History Smoking and tobacco/nicotine status: never used tobacco/nicotine Alcohol intake: never Physical Exam 2 Const: GENERAL APPEARANCE: cooperative, ill appearing and frail appearing HENMT: COMMON NORMALS: normocephalic, atraumatic and Normal external nose present HEAD & SCALP: normocephalic and atraumatic FACE & SINUS: normal facial exam and face symmetric NOSE: Normal external nose present Eye: COMMON NORMALS: Equal, round and reactive pupils present and EOMs intact bilaterally PUPIL: Yes Equal, round and reactive pupils present Neck/C-Spine: GENERAL: Yes trachea midline Chest: CHEST: Yes Symmetrical chest wall rise Resp: COMMON NORMALS: clear to auscultation bilaterally EFFORT & INSPECTION: Yes tachypneic and Yes labored AUSCULTATION: clear to auscultation bilaterally and diminished lung sounds Cardio: RATE: tachycardic RHYTHM: abnormal rhythm irregularly irregular GI: COMMON NORMALS: Normal to inspection, nondistended, normoactive bowel sounds present Extremity: COMMON NORMALS: no pedal edema Neuro: EFREN COMA SCALE: document GCS findings [place] coma scale eye opening: Spontaneous Efren coma scale verbal response: Orientated Efren coma scale motor response: Obey commands [place] coma scale total score: 15 S ENSORY EXAM: Yes extremities (intact) Psych: COMMON NORMALS: speech normal SPEECH: Yes normal speech Skin: COMMON NORMALS: no rashes or lesions noted GENERAL SKIN EXAM: no rashes or lesions noted Course 2 Vital Signs: Vital signs: Vital Signs Temperature 98.9 F 05/20/23 00:37 Pulse Rate 102 H 05/20/23 02:32 Respiratory Rate 18 05/20/23 02:32 Blood Pressure 161/101 05/20/23 02:32 Pulse Oximetry 96 05/20/23 02:32 Oxygen Delivery Me thod Nasal Cannula 05/20/23 02:32 Oxygen Flow Rate 2 05/20/23 02:32 MDM - SOB/Dyspnea Medical Decision Making Patient is tachypneic with labored respirations. Improved after oxygen, nebulizer treatment. She has received Solu-Medrol, Zosyn. White blood cell count is 15.5. Sugar is 144. Blood gases done on oxygen, and shows a pO2 of 69, pCO2 of 45. Lactic acid is only 1.9. BNP is elevated at 1682. Troponin is baseline at 17. She has an infiltrate in the right lower lung. Sepsis bolus is not given intentionally due to elevated BNP, hypertensive status, and history of fluid overload. She will be admitted for hypoxic respiratory failure with pneumonia. Hospitalist will see the patient. Lab Data 05/20/23 00:47 05/20/23 00:47 Labs/Radiology: Laboratory Results WBC 15.46 10^3/uL (3.29-11.43) H 05/20/23 00:47 RBC 3.61 10^6/uL (3.85-5.65) L 05/20/23 00:47 Hgb 11.50 g/dL (11.27-16.99) 05/20/23 00:47 Hct 36.4 % (36-47) 05/20/23 00:47 MCV 100.8 fl (85-98) H 05/20/23 00:47 MCH 31.9 pg (27-33) 05/20/23 00:47 MCHC 31.6 g/dL (30-55) 05/20/23 00:47 RDW 15.3 % (12.1-15.1) H 05/20/23 00:47 Plt Count 394 10^3/cmm (157-399) 05/20/23 00:47 MPV 9.5 fL (7.4-10.4) 05/20/23 00:47 Neut % (Auto) 85.5 % 05/20/23 00:47 Lymph % (Auto) 1.7 % 05/20/23 00:47 [place] % (Auto) 11.5 % 05/20/23 00:47 Eos % (Auto) 0.2 % 05/20/23 00:47 Baso % (Auto) 0.1 % 05/20/23 00:47 Neut # (Auto) 13.21 10^3/uL (1.8-7.7) H 05/20/23 00:47 Lymph # (Auto) 0.3 10^3/uL (0.8-4.8) L 05/20/23 00:47 [place] # (Auto) 1.8 10^3/uL (0.2-0.9) H 05/20/23 00:47 Eos # (Auto) 0.0 10^3/uL (0.0-0.8) 05/20/23 00:47 Baso # (Auto) 0.0 10^3/uL (0.0-0.1) 05/20/23 00:47 Nucleated RBC % (auto) 0.1 % 05/20/23 00:47 Nucleated RBCs # 0.0 /100WBC 05/20/23 00:47 Specimen Type Arterial 05/20/23 00:40 Sample Site Radial, left 05/20/23 00:40 ABG pH 7.47 (7.35-7.45) H 05/20/23 00:40 ABG pCO2 44.6 mmHg (35-45) 05/20/23 00:40 ABG pO2 69.5 mmHg (80.0-100.0) L 05/20/23 00:40 ABG HCO3 32.1 mmol/L (22-26) H 05/20/23 00:40 ABG Base Excess 7.5 mmol/L (-2.0-2.0) H 05/20/23 00:40 Jean Claude Test Pos 05/20/23 00:40 Hematocrit 35.5 % (37-47) L 05/20/23 00:40 Hgb O2 Saturation 94.1 % (95-100) L 05/20/23 00:40 Carboxyhemoglobin 1.4 %THgb (0.4-20.1) 05/20/23 00:40 Methemoglobin 0.3 % (0.4-1.5) L 05/20/23 00:40 Total Hemoglobin 11.6 g/dL (12-16) L 05/20/23 00:40 O2 Delivery Device Room air 05/20/23 00:40 Executive Pastry Chef ID [email or web address] 05/20/23 00:40 Sodium 139 mmol/L (136-145) 05/20/23 00:47 Potassium 4.4 mmol/L (3.5-5.1) 05/20/23 00:47 Chloride 101 mmol/L (98-107) 05/20/23 00:47 Carbon Dioxide 31 mmol/L (22-29) H 05/20/23 00:47 Anion Gap 11.4 (5-19) 05/20/23 00:47 BUN 14 mg/dL (8-23) 05/20/23 00:47 Creatinine 0.7 mg/dL (0.5-0.9) 05/20/23 00:47 GFR Calculation 83.2 mL/min (90-130) L 05/20/23 00:47 Glucose 144 mg/dL (65-115) H 05/20/23 00:47 Calculated Osmolality 291 mOsm/kg (285-295) 05/20/23 00:47 Lactic Acid 1.9 mmol/L (0.5-2.2) 05/20/23 00:47 Calcium 9.2 mg/dL (8.5-10.5) 05/20/23 00:47 Total Bilirubin 0.3 mg/dL (0.15-1.2) 05/20/23 00:47 AST 22 U/L (0-32) 05/20/23 00:47 ALT 21 U/L (0-33) 05/20/23 00:47 Alkaline Phosphatase 63 U/L (35-105) 05/20/23 00:47 Troponin T Baseline 17 ng/L (0-10) H 05/20/23 00:47 NT-Pro-B Natriuret Pep 1682 pg/mL (0-125) H 05/20/23 00:47 Total Protein 6.2 g/dL (6.6-8.7) L 05/20/23 00:47 Albumin 3.6 g/dL (3.5-5.2) 05/20/23 00:47 Globulin 2.6 g/dL (1.3-4.6) 05/20/23 00:47 Procalcitonin 0.12 ng/mL (0-0.5) 05/20/23 02:03 XR interpretation done by ED provider, pending radiology final review Discharge Plan Discharge Patient Disposition: Admitted As Inpatient Admit Provider: Ade Alvarez Clinical Impression: Atrial fibrillation with rapid ventricular response, Pulmonary embolism, Acute hypoxemic respiratory failure, Pneumonia Condition: Fair Coding Level of Care Code ED Veneer Grader for Lea Pedroza
[2023-05-20 03:28] LABS: Adenovirus Not Detected (NOT DETECT); Chlamydia Pneumoniae Not Detected (NOT DETECT); Coronavirus 229E,HKU1,NL63,OC4 Not Detected (NOT DETECT); Human Metapneumovirus Not Detected (NOT DETECT); Human Rhinovirus/Enterovirus Not Detected (NOT DETECT); Influenza A Detected (NOT DETECT); Influenza A H1 Not Detected (NOT DETECT); Influenza A H1-2009 Detected (NOT DETECT); Influenza A H3 Not Detected (NOT DETECT); Influenza B Not Detected (NOT DETECT); Mycoplasma Pneumoniae Not Detected (NOT DETECT); Parainfluenza Virus Type 1 Not Detected (NOT DETECT); Parainfluenza Virus Type 2 Not Detected (NOT DETECT); Parainfluenza Virus Type 3 Not Detected (NOT DETECT); Parainfluenza Virus Type 4 Not Detected (NOT DETECT); Respiratory Syncytial Virus A Not Detected (NOT DETECT); Respiratory Syncytial Virus B Not Detected (NOT DETECT); SARS-COV-2 Not Detected (NOT DETECT)
[2023-05-20] MEDS: ipratropium 0.5 mg/2.5 mL Neb 0.25 MG INHALATION ×6 (03:59→23:52)
[2023-05-20 04:42] LABS: Basophils % 0.1 %; Eosinophils % 0.1 %; Hematocrit 37.7 % (36-47); Lymphocytes # 0.4 10^3/uL (0.8-4.8); Lymphocytes % 2.4 %; Mean Corpuscular Hemoglobin 31.4 pg (27-33); Mean Corpuscular Volume 101.1 fl (85-98); Mean Platelet Volume 9.6 fL (7.4-10.4); Monocytes # 0.5 10^3/uL (0.2-0.9); Monocytes % 3.6 %; Neutrophils % 92.9 %; Nucleated Red Blood Cells % 0 %; Platelet Count 402 10^3/cmm (157-399); Red Blood Count 3.73 10^6/uL (3.85-5.65); Red Cell Distribution Width 15.4 % (12.1-15.1); White Blood Count 15.07 10^3/uL (3.29-11.43)
[2023-05-20 04:57] LABS: Troponin 5 2HR 15.41 ng/L (0-10)
[2023-05-20 04:58] LABS: Troponin 5 2HR Delta -1.59 ABS# (0-10)
[2023-05-20 05:03] LABS: Anion Gap 12.7 (5-19); Blood Urea Nitrogen 14 mg/dL (8-23); Calcium 9.2 mg/dL (8.5-10.5); Carbon Dioxide 29 mmol/L (22-29); Chloride 101 mmol/L (98-107); Creatinine Clr Calc Pharmacy 75.8158; Glomerular Filtration Rate 71.3 mL/min (90-130); Glucose 178 mg/dL (65-115); Magnesium 1.9 mg/dL (1.7-2.3); Osmolality Calculated 291 mOsm/kg (285-295); Potassium 4.7 mmol/L (3.5-5.1); Sodium 138 mmol/L (136-145)
[2023-05-20] MEDS: metoprolol succinate ER (24 HR) 100 mg Tablet 200 MG PO (05:51)
[2023-05-20] MEDS: vancomycin 2,000 MG/400 ML PIGGYBACK 200 MG IV (05:52)
[2023-05-20 06:47] LABS: Troponin 5 6HR 13.12 ng/L (0-10); Troponin 5 6HR Delta -3.88 ng/L (0-12)
[2023-05-20] MEDS: FUROsemide 10 mg/mL SDV 2mL 20 MG IVP (08:25)
[2023-05-20] MEDS: rivaroxaban 10 mg Tablet 15 MG PO ×2 (08:26→18:03)
[2023-05-20] MEDS: acetaminophen 500 mg Tablet PO (08:26)
[2023-05-20] MEDS: dilTIAZem ER (24HR) 120 mg Capsule PO (08:30)
[2023-05-20] MEDS: levalbuterol 0.63 mg/3 mL Neb INHALATION ×5 (08:48→23:56)
[2023-05-20] MEDS: oseltamivir phosphate 75 mg Capsule PO ×2 (11:03→22:02)
--- NOTE | 2023-05-20 17:22 | PM.PN ---
Subjective Subjective: No fever since admission Currently on 2 L Mild anxiety Vitals/I&O/Wt Last Vital Signs Temp 97.9 F 05/20/23 12:14 Pulse 88 05/20/23 15:42 Resp 18 05/20/23 15:39 BP 135/82 05/20/23 12:14 Pulse Ox 97 05/20/23 15:39 O2 Del Method Nasal Cannula 05/20/23 15:39 O2 Flow Rate 2 05/20/23 15:39 05/20/23 05/20/23 05/20/23 06:59 14:59 22:59 Intake Total 170 / 170 1740 / 1740 Balance 170 / 170 1740 / 1740 Weight last 48 hrs Weight 99.79 kg Weight 99.79 kg Weight 99.79 kg Physical Exam Narrative: Left sided rhonchi Currently on 2 L After chest pain GCS 15 Euvolemic S1, S2 Abdomen soft Pleasant cooperative Data 05/20/23 04:08 05/20/23 04:08 A&P Assessment and plan (1) Iron deficiency anemia: Qualifiers: Iron deficiency anemia type: other iron deficiency Qualified Code(s): D50.8 - Other iron deficiency anemias (2) Large hiatal hernia: (3) Influenza A: (4) Lung mass: (5) Pulmonary cavitary lesion: (6) Hypoxia: (7) Pneumonia: Plan Influenza A related pneumonia Afebrile Currently on 2 L Wean off oxygen if possible Patient has appointment to see sewage reticulation drafting officer May 29 Continue current antibiotic empirical regimen Patient received steroids on admission Anticipating leukocytosis due to steroids She might be able to go home in next 24 to 48 hours She will require home oxygen evaluation Continue Eliquis with AV joaquin blocking agent I will give her another dose of Lasix Attestations Medical Necessity Statement*: Anticipating discharge within 48 hours Coding Level of Care Code 90004 Moderate MDM Diagnoses Other iron deficiency anemia D50.8 Iron deficiency anemia type: other iron deficiency Large hiatal hernia K44.9 Influenza A J10.1 Lung mass R91.8 Pulmonary cavitary lesion J98.4 Hypoxia R09.02 Pneumonia J18.9
[2023-05-20] MEDS: vancomycin 1,250 MG/250 ML PIGGYBACK 250 MG IV (17:30)
[2023-05-20] MEDS: benzonatate 100 mg Capsule 200 MG PO (19:33)
[2023-05-21] VITALS (10 sets, daily range): BP systolic 102–119; BP diastolic 64–71; PULSE 81–98; RESP 16–20; TEMP 36.4–36.7; O2SAT 92–97
[2023-05-21] MEDS: ipratropium 0.5 mg/2.5 mL Neb 0.25 MG INHALATION ×3 (03:24→11:05)
[2023-05-21] MEDS: levalbuterol 0.63 mg/3 mL Neb INHALATION ×3 (03:24→11:05)
[2023-05-21] MEDS: vancomycin 1,250 MG/250 ML PIGGYBACK 250 MG IV (03:48)
[2023-05-21] MEDS: morphine IR 15 mg Tablet PO (03:52)
[2023-05-21] MEDS: benzonatate 100 mg Capsule 200 MG PO (03:52)
[2023-05-21 04:54] LABS: Basophils % 0.1 %; Hematocrit 37.4 % (36-47); Lymphocytes # 0.6 10^3/uL (0.8-4.8); Lymphocytes % 5.9 %; Mean Corpuscular HGB Conc 30.2 g/dL (30-55); Mean Corpuscular Hemoglobin 31.2 pg (27-33); Mean Corpuscular Volume 103.3 fl (85-98); Mean Platelet Volume 9.9 fL (7.4-10.4); Monocytes # 1.5 10^3/uL (0.2-0.9); Monocytes % 14.7 %; Neutrophils # 7.84 10^3/uL (1.8-7.7); Neutrophils % 78.9 %; Nucleated Red Blood Cells % 0 %; Platelet Count 370 10^3/cmm (157-399); Red Blood Count 3.62 10^6/uL (3.85-5.65); Red Cell Distribution Width 15.3 % (12.1-15.1); White Blood Count 9.94 10^3/uL (3.29-11.43)
[2023-05-21 05:10] LABS: Anion Gap 9.5 (5-19); Blood Urea Nitrogen 22 mg/dL (8-23); Carbon Dioxide 35 mmol/L (22-29); Chloride 97 mmol/L (98-107); Creatinine Clr Calc Pharmacy 75.8158; Glomerular Filtration Rate 99.4 mL/min (90-130); Glucose 174 mg/dL (65-115); Osmolality Calculated 292 mOsm/kg (285-295); Potassium 4.5 mmol/L (3.5-5.1); Sodium 137 mmol/L (136-145)
[2023-05-21] MEDS: metoprolol succinate ER (24 HR) 100 mg Tablet 200 MG PO (06:57)
[2023-05-21] MEDS: levoFLOXacin 750 mg Tablet PO (07:02)
--- NOTE | 2023-05-21 09:01 | PC.CHAP ---
Pastoral Care Encounter/Spiritual Assessment Type of Contact [] Declined naturalist visit [] Patient/Family/Request visit [] Outpatient visit [] Follow-up visit [] Physician referral [] Code/Alert [] Routine visit [] Staff referral [] Actively dying [] Patient sleeping [] Family support [] [] Out of room [] Palliative care [] [] Receiving care in room [] Pre-surgical visit [] Trauma [] Long length of stay [] ICU visit [x] Other:Contact precautions. No visit. Relational/Emotional Strength [] Patient feels connected with others/family/visitors/staff [] Distress [] Loneliness/isolation [] Abandonment Spirituality of Patient [] Person of Maria Alejandra [] Attends Muslim of their Maria Alejandra [] Believes in Prayer [] Reads Bible or Restorationism materials [] There are Spiritual issues to be addressed Assistant Finance Manager Interventions [] Prayer [] Active listening [] Non-anxious presence [] Spiritual/emotional support [] Crisis/trauma care [] Spiritual counseling [] Bereavement support [] Provided bereavement packet [] Provided Bible/devotional materials [] Provided toy/stuffed animal, coloring book to patient or family member [] Provided Communion [] Anointing/[place] [] Salvation [] Completed spiritual assessment [] Other: Impact on Illness or Injury [] Angry [] Fearful [] Anxious [] Often cries [] Exhaustion [] Unable to work [] Unable to attend mormon [] Unable to walk/stand [] Unable to read [] Unable to drive [] Unable to eat/drink [] Unable to sleep [] Unable to be with family [] Patient intubated [] Other: Summary Time spent with patient
[2023-05-21] MEDS: rivaroxaban 10 mg Tablet 15 MG PO (09:37)
[2023-05-21] MEDS: dilTIAZem ER (24HR) 120 mg Capsule PO (09:37)
[2023-05-21] MEDS: oseltamivir phosphate 75 mg Capsule PO (10:55)
--- NOTE | 2023-05-21 11:08 | PM.DCS ---
Discharge Providers Date of Admission: 05/20/23 02:29 Date of Discharge: May 21, 2023 Attending Provider at Admission: Ade Alvarez MD Attending Provider at Discharge: Ade Alvarez MD Primary Care Provider: Madi Reeves MD Diagnoses at Discharge Discharge Diagnosis (1) Iron deficiency anemia: Status: Acute Qualifiers: Iron deficiency anemia type: other iron deficiency Qualified Code(s): D50.8 - Other iron deficiency anemias (2) Large hiatal hernia: Status: Acute (3) Influenza A: Status: Acute (4) Lung mass: Status: Acute (5) Pulmonary cavitary lesion: Status: Acute (6) Hypoxia: Status: Acute (7) Pneumonia: Status: Acute Reason for Visit Reason for Visit: SOB, fever Hospital Course Hospital Course 68-year-old female who was recently show from the hospital, for the evaluation of PE, she was started on loading dose of Xarelto which she is still taking, presented with chief complaint of fever and shortness of breath, she was diagnosed with influenza A during this hospitalization, she was given Tamiflu, empirical antibiotic coverage, she remained afebrile without any leukocytosis. 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 At home she does not use oxygen. She takes Cardizem for her A-fib. Physical Exam Narrative: Awake and alert A-fib without RVR GCS 15 Abdomen soft Clinically dry Currently on 2 L [place] [facility] No active chest pain Abdomen soft Discharge Data Studies Completed and Pending Completed Studies During Hospitalization Category Date Time Status XR chest 1V portable [id number] Stat Exams 05/20/23 00:40 Completed Pending at discharge Category Date Time Status Blood Cultures ([facility]) Routine Lab 05/20/23 01:00 Received Blood Cultures ([facility]) Routine Lab 05/20/23 01:02 Received Sputum Culture and Gram Stain Routine Lab 05/20/23 03:03 Uncollected Vancomycin Trough Routine Lab 05/21/23 16:00 Ordered Radiology Impressions Chest X-Ray 05/20/23 00:40 IMPRESSION: 1. Subtle increased interstitial opacities in the lung bases bilaterally could represent atelectasis although bilateral basilar interstitial pneumonitis can not be excluded. 2. Hiatal hernia Laboratory Results WBC 9.94 10^3/uL (3.29-11.43) 05/21/23 04:18 RBC 3.62 10^6/uL (3.85-5.65) L 05/21/23 04:18 Hgb 11.30 g/dL (11.27-16.99) 05/21/23 04:18 Hct 37.4 % (36-47) 05/21/23 04:18 MCV 103.3 fl (85-98) H 05/21/23 04:18 MCH 31.2 pg (27-33) 05/21/23 04:18 MCHC 30.2 g/dL (30-55) 05/21/23 04:18 RDW 15.3 % (12.1-15.1) H 05/21/23 04:18 Plt Count 370 10^3/cmm (157-399) 05/21/23 04:18 MPV 9.9 fL (7.4-10.4) 05/21/23 04:18 Neut % (Auto) 78.9 % 05/21/23 04:18 Lymph % (Auto) 5.9 % 05/21/23 04:18 Andrews % (Auto) 14.7 % 05/21/23 04:18 Eos % (Auto) 0.0 % 05/21/23 04:18 Baso % (Auto) 0.1 % 05/21/23 04:18 Neut # (Auto) 7.84 10^3/uL (1.8-7.7) H 05/21/23 04:18 Lymph # (Auto) 0.6 10^3/uL (0.8-4.8) L 05/21/23 04:18 Andrews # (Auto) 1.5 10^3/uL (0.2-0.9) H 05/21/23 04:18 Eos # (Auto) 0.0 10^3/uL (0.0-0.8) 05/21/23 04:18 Baso # (Auto) 0.0 10^3/uL (0.0-0.1) 05/21/23 04:18 Nucleated RBC % (auto) 0 % 05/21/23 04:18 Nucleated RBCs # 0.0 /100WBC 05/21/23 04:18 Specimen Type Arterial 05/20/23 00:40 Sample Site Radial, left 05/20/23 00:40 ABG pH 7.47 (7.35-7.45) H 05/20/23 00:40 ABG pCO2 44.6 mmHg (35-45) 05/20/23 00:40 ABG pO2 69.5 mmHg (80.0-100.0) L 05/20/23 00:40 ABG HCO3 32.1 mmol/L (22-26) H 05/20/23 00:40 ABG Base Excess 7.5 mmol/L (-2.0-2.0) H 05/20/23 00:40 Jean Claude Test Pos 05/20/23 00:40 Hematocrit 35.5 % (37-47) L 05/20/23 00:40 Hgb O2 Saturation 94.1 % (95-100) L 05/20/23 00:40 Carboxyhemoglobin 1.4 %THgb (0.4-20.1) 05/20/23 00:40 Methemoglobin 0.3 % (0.4-1.5) L 05/20/23 00:40 Total Hemoglobin 11.6 g/dL (12-16) L 05/20/23 00:40 O2 Delivery Device Room air 05/20/23 00:40 Community Marketing Coordinator ID [email or web address] 05/20/23 00:40 Sodium 137 mmol/L (136-145) 05/21/23 04:18 Potassium 4.5 mmol/L (3.5-5.1) 05/21/23 04:18 Chloride 97 mmol/L (98-107) L 05/21/23 04:18 Carbon Dioxide 35 mmol/L (22-29) H 05/21/23 04:18 Anion Gap 9.5 (5-19) 05/21/23 04:18 BUN 22 mg/dL (8-23) 05/21/23 04:18 Creatinine 0.6 mg/dL (0.5-0.9) 05/21/23 04:18 GFR Calculation 99.4 mL/min (90-130) 05/21/23 04:18 Glucose 174 mg/dL (65-115) H 05/21/23 04:18 Calculated Osmolality 292 mOsm/kg (285-295) 05/21/23 04:18 Lactic Acid 1.9 mmol/L (0.5-2.2) 05/20/23 00:47 Calcium 9.0 mg/dL (8.5-10.5) 05/21/23 04:18 Magnesium 1.9 mg/dL (1.7-2.3) 05/20/23 04:08 Total Bilirubin 0.3 mg/dL (0.15-1.2) 05/20/23 00:47 AST 22 U/L (0-32) 05/20/23 00:47 ALT 21 U/L (0-33) 05/20/23 00:47 Alkaline Phosphatase 63 U/L (35-105) 05/20/23 00:47 Troponin T Baseline 17 ng/L (0-10) H 05/20/23 00:47 Troponin T 120 Minute 15.41 ng/L (0-10) H 05/20/23 04:08 Delta Troponin T -1.59 ABS# (0-10) L 05/20/23 04:08 Troponin T Hi Sens 6Hr 13.12 ng/L (0-10) H 05/20/23 06:21 Troponin T Hi Sens 6Hr Delta -3.88 ng/L (0-12) L 05/20/23 06:21 NT-Pro-B Natriuret Pep 1682 pg/mL (0-125) H 05/20/23 00:47 Total Protein 6.2 g/dL (6.6-8.7) L 05/20/23 00:47 Albumin 3.6 g/dL (3.5-5.2) 05/20/23 00:47 Globulin 2.6 g/dL (1.3-4.6) 05/20/23 00:47 Procalcitonin 0.12 ng/mL (0-0.5) 05/20/23 02:03 Nasal Influ A H1 2008 PCR Detected (NOT DETECT) A 05/20/23 01:36 Adenovirus (PCR) Not detected (NOT DETECT) 05/20/23 01:36 C. pneumoniae DNA (PCR) Not detected (NOT DETECT) 05/20/23 01:36 Coronavirus 229E (PCR) Not detected (NOT DETECT) 05/20/23 01:36 Human Metapneumovir PCR Not detected (NOT DETECT) 05/20/23 01:36 Influenza A (H1) PCR Not detected (NOT DETECT) 05/20/23 01:36 Influenza A (H3) PCR Not detected (NOT DETECT) 05/20/23 01:36 Influenza Type A (PCR) Detected (NOT DETECT) A 05/20/23 01:36 Influenza Type B (PCR) Not detected (NOT DETECT) 05/20/23 01:36 M. pneumoniae (PCR) Not detected (NOT DETECT) 05/20/23 01:36 Parainfluenza 1 (PCR) Not detected (NOT DETECT) 05/20/23 01:36 Parainfluenza 2 (PCR) Not detected (NOT DETECT) 05/20/23 01:36 Parainfluenza 3 (PCR) Not detected (NOT DETECT) 05/20/23 01:36 Parainfluenza 4 (PCR) Not detected (NOT DETECT) 05/20/23 01:36 RSV Type A (PCR) Not detected (NOT DETECT) 05/20/23 01:36 RSV Type B (PCR) Not detected (NOT DETECT) 05/20/23 01:36 Entero/Rhino (PCR) Not detected (NOT DETECT) 05/20/23 01:36 SARS-CoV-2 (PCR) Not detected (NOT DETECT) 05/20/23 01:36 Vitals Last Vital Signs Temp 98.0 F 05/21/23 08:00 Pulse 98 05/21/23 08:00 Resp 18 05/21/23 08:00 BP 102/71 05/21/23 08:00 Pulse Ox 95 05/21/23 08:00 O2 Del Method Nasal Cannula 05/21/23 08:00 O2 Flow Rate 2 05/21/23 07:45 Discharge Plan Discharge Patient Disposition: Home Condition: Fair Prescriptions: New levofloxacin 750 mg Tablet 750 mg PO DAILY@0600 Qty: 3 0RF oseltamivir 75 mg Capsule 75 mg PO Q12H Qty: 6 0RF Continued ascorbic acid (vitamin C) 1,000 mg tablet 1 g PO BID zinc gluconate 50 mg tablet 50 mg PO QAM cholecalciferol (vitamin D3) 25 mcg (1,000 unit) capsule 25 mcg PO QAM metoprolol succinate 200 mg tablet extended release 24 hr 200 mg PO QAM [id number] Tablet 1 tab PO BEDTIME folic acid 1 mg tablet 1 mg PO BEDTIME methotrexate sodium 2.5 mg tablet See Rx Instructions .ROUTE .COMPLEX Hold Instructions: Resume on 05/23/23. Rx Instructions: Take 6 tablets po q7d on Saturday bumetanide 1 mg tablet 1 mg PO DAILY PRN (Reason: Edema) potassium chloride 10 mEq tablet,ER particles/crystals 10 meq PO DAILY PRN (Reason: when taking fluid pill) levalbuterol HCl 0.63 mg/3 mL solution for nebulization 0.63 mg inhalation TID Qty: 75 3RF pantoprazole 40 mg Tablet,Delayed Release (Dr/Ec) 40 mg PO BID losartan 50 mg Tablet 50 mg PO DAILY 30 Days Qty: 30 0RF prednisone 10 mg tablet See Taper PO DIRECTED Qty: 42 0RF Taper: predniSONE 60-10 60 mg Daily for 2 Days and 0 Hour 50 mg Daily for 2 Days and 0 Hour 40 mg Daily for 2 Days and 0 Hour 30 mg Daily for 2 Days and 0 Hour 20 mg Daily for 2 Days and 0 Hour 10 mg Daily for 2 Days and 0 Hour Rx Instructions: see taper instructions ipratropium bromide 0.02 % solution 0.5 mg inhalation Q6H PRN (Reason: shortness of breath or wheezing) Qty: 75 0RF Xarelto DVT-PE Treat 30d Start 15 mg (42)- 20 mg (9) tablets,dose pack See Protocol PO DAILY Qty: 51 0RF Protocol: Xarelto Dose Pack Condition: Start Dose/Route: 15 mg twice daily Instruction: after 21 days, Condition: Transition to Dose/Route: 20 mg once daily Instruction: thereafter Rx Instructions: Start, 15 mg twice daily for 21 days,; Transition to 20 mg once daily thereafter levalbuterol tartrate 45 mcg/actuation HFA aerosol inhaler 2 inh inhalation Q6H PRN (Reason: Shortness Of Breath) Xarelto 20 mg tablet 20 mg PO BEDTIME Hold Instructions: Resume on 05/30/23. Rx Instructions: START ON WEEK 5 STARTED 15 MG 05/09/2023 diltiazem HCl [Cardizem CD] 120 mg capsule,extended release 24hr 120 mg PO DAILY Qty: 30 0RF Discontinued cephalexin 500 mg tablet 500 mg PO BEDTIME Discharge Orders: Discharge Order (Routine); Ordered 05/21/23 Ordered By: Ade Alvarez Patient Instructions: Opioid Safety Discharge Attestations Time Spent in Discharge Care*: greater than 30 min Quality Metrics Clinical Quality Measures [ No reported AMI, CVA or VTE this stay] Coding Level of Care Code Acute Code for Chg Fwd Diagnoses Other iron deficiency anemia D50.8 Iron deficiency anemia type: other iron deficiency Large hiatal hernia K44.9 Influenza A J10.1 Lung mass R91.8 Pulmonary cavitary lesion J98.4 Hypoxia R09.02 Pneumonia J18.9
--- NOTE | 2023-05-21 15:07 | PC.NURSE ---
Discussed discharge medications, continued medications, discontinued medications with patient. Made sure patient understood when follow up appointments were. Patient verbalized understanding at 1256. Called back to patients room at 1400 to discuss all the discharge paperwork with the daughter. Daughter verbalized understanding as well.
== END 2023-05-21 14:15 | disposition home or self-care (01) ==
LOC: ER 01:54 → MEDSURG 02:29
PROVIDERS: Admitting Provider Internal Medicine; Emergency Provider Emergency Medicine; PCP Family Medicine; Visit Provider Internal Medicine
DX: J10.1 Influenza due to other identified influenza virus with other respiratory manifestations (principal); D50.8 Other iron deficiency anemias; K44.9 Diaphragmatic hernia without obstruction or gangrene; R91.8 Other nonspecific abnormal finding of lung field; J98.4 Other disorders of lung; R09.02 Hypoxemia; J18.9 Pneumonia, unspecified organism; Z99.81 Dependence on supplemental oxygen; I48.91 Unspecified atrial fibrillation; J96.91 Respiratory failure, unspecified with hypoxia; Z79.01 Long term (current) use of anticoagulants; I10 Essential (primary) hypertension
CPT/HCPCS: 36415; 71045; 80048; 80053; 82805; 83605; 83735; 83880; 84145; 84484; 85025; 87040; 87486; 87581; 87633; 93005; 94640; 94760; 96365; 96366; 96367; 96375; 99285; G0378; J1940; J2543; J2930; J3370; J3372; J7614; J7644

== ENCOUNTER 2023-05-24 10:49 | Oncology outpatient (recurring) (ONCR) | payer MEDICARE, BC, SELFPAY ==
[2023-05-16 11:27] VITALS: BP 159/76; PULSE 88; RESP 16; TEMP 36.2; O2SAT 97
[2023-05-16] MEDS: sodium chloride 0.9% 250 ML 75 ML IV (11:56)
[2023-05-16] MEDS: ferric carboxy (IVPB) 750 MG in sodium chloride 0.9% (100 ml) 100 ML 345 MG IV (12:00)
[2023-05-16 12:40] VITALS: BP 135/84; PULSE 87; RESP 18; TEMP 36.6; O2SAT 98
[2023-05-24] MEDS: ferric carboxy (IVPB) 750 MG in sodium chloride 0.9% (100 ml) 100 ML 345 MG IV (11:21)
[2023-05-24] MEDS: sodium chloride 0.9% 250 ML 75 ML IV (11:21)
[2023-05-24 12:00] VITALS: BP 134/81; PULSE 84; RESP 16; TEMP 36.4; O2SAT 94
== END 2023-05-26 23:59 | disposition home or self-care (01) ==
PROVIDERS: PCP Family Medicine; Visit Provider Internal Medicine Medical Oncology
DX: Z53.9 Procedure and treatment not carried out, unspecified reason (principal); D50.9 Iron deficiency anemia, unspecified; R91.8 Other nonspecific abnormal finding of lung field; R53.83 Other fatigue; Z95.828 Presence of other vascular implants and grafts
CPT/HCPCS: 96365; 99214; J1439; J7050

== ENCOUNTER 2023-06-25 12:38 | Oncology outpatient (recurring) (ONCR) | payer MEDICARE, BC, SELFPAY ==
[2023-06-25 13:32] LABS: Basophils % 0.1 %; Eosinophils # 0.8 10^3/uL (0.0-0.8); Eosinophils % 7.3 %; Hematocrit 30.1 % (36-47); Lymphocytes # 0.3 10^3/uL (0.8-4.8); Lymphocytes % 2.9 %; Mean Corpuscular HGB Conc 30.6 g/dL (30-55); Mean Corpuscular Hemoglobin 33.3 pg (27-33); Mean Corpuscular Volume 109.1 fl (85-98); Monocytes # 0.7 10^3/uL (0.2-0.9); Monocytes % 7.2 %; Neutrophils # 8.49 10^3/uL (1.8-7.7); Neutrophils % 82.1 %; Nucleated Red Blood Cells % 0 %; Platelet Count 224 10^3/cmm (157-399); Red Blood Count 2.76 10^6/uL (3.85-5.65); Red Cell Distribution Width 20.7 % (12.1-15.1); White Blood Count 10.33 10^3/uL (3.29-11.43)
[2023-06-25 13:49] LABS: Alanine Aminotransferase 17 U/L (0-33); Albumin Level 2.8 g/dL (3.5-5.2); Alkaline Phosphatase 57 U/L (35-105); Anion Gap 10.6 (5-19); Aspartate Amino Transferase 13 U/L (0-32); Blood Urea Nitrogen 11 mg/dL (8-23); Calcium 8.8 mg/dL (8.5-10.5); Carbon Dioxide 30 mmol/L (22-29); Chloride 102 mmol/L (98-107); Ferritin 618 ng/mL (15-150); Globulin 3.2 g/dL (1.3-4.6); Glomerular Filtration Rate 99.4 mL/min (90-130); Glucose 134 mg/dL (65-115); Iron 14 ug/dL (37-145); Osmolality Calculated 287 mOsm/kg (285-295); Percent Saturation 9.2 % (20-50); Potassium 4.6 mmol/L (3.5-5.1); Sodium 138 mmol/L (136-145); Total Bilirubin 0.4 mg/dL (0.15-1.2); Total Iron Binding Capacity 152 mcg/dl; Unsaturated Iron Binding 138 ug/dL (112-347)
[2023-06-29 15:50] LABS: Soluble Transferrin Receptor 2.67 mg/L (0.76-1.76)
== END 2023-06-26 23:59 | disposition home or self-care (01) ==
LOC: ONCMED 12:39
PROVIDERS: Nurse Practitioner Family; PCP Family Medicine; Visit Provider Internal Medicine Medical Oncology
DX: D50.9 Iron deficiency anemia, unspecified; R91.8 Other nonspecific abnormal finding of lung field; R53.83 Other fatigue; Z95.828 Presence of other vascular implants and grafts; Z99.81 Dependence on supplemental oxygen; K44.9 Diaphragmatic hernia without obstruction or gangrene; Z79.899 Other long term (current) drug therapy
CPT/HCPCS: 36415; 80053; 82728; 83540; 83550; 84238; 85025; 99214

== ENCOUNTER 2023-07-22 08:50 | Oncology outpatient (recurring) (ONCR) | payer MEDICARE, BC, SELFPAY ==
[2023-07-03 14:57] VITALS: BP 136/69; PULSE 103; RESP 18; TEMP 36.5; O2SAT 90
[2023-07-03] MEDS: ferric carboxy (IVPB) 750 MG in sodium chloride 0.9% (100 ml) 100 ML 345 MG IV (15:01)
[2023-07-03] MEDS: sodium chloride 0.9% 250 ML 75 ML IV (15:01)
[2023-07-03 15:45] VITALS: BP 136/65; PULSE 72; RESP 24; TEMP 36.7; O2SAT 94
[2023-07-12 10:02] LABS: Basophils % 0.5 %; Eosinophils # 0.3 10^3/uL (0.0-0.8); Eosinophils % 5.8 %; Hematocrit 37.6 % (36-47); Lymphocytes # 0.7 10^3/uL (0.8-4.8); Lymphocytes % 11.5 %; Mean Corpuscular HGB Conc 29.3 g/dL (30-55); Mean Corpuscular Hemoglobin 33.1 pg (27-33); Mean Corpuscular Volume 113.3 fl (85-98); Mean Platelet Volume 9.8 fL (7.4-10.4); Monocytes # 0.7 10^3/uL (0.2-0.9); Monocytes % 12.5 %; Neutrophils # 4.02 10^3/uL (1.8-7.7); Nucleated Red Blood Cells % 0.7 %; Platelet Count 632 10^3/cmm (157-399); Red Blood Count 3.32 10^6/uL (3.85-5.65); Red Cell Distribution Width 20.8 % (12.1-15.1); White Blood Count 5.83 10^3/uL (3.29-11.43)
[2023-07-17 15:11] LABS: Basophils % 0.7 %; Eosinophils # 0.2 10^3/uL (0.0-0.8); Eosinophils % 3.8 %; Hematocrit 37.5 % (36-47); Lymphocytes # 0.8 10^3/uL (0.8-4.8); Lymphocytes % 13.6 %; Mean Corpuscular HGB Conc 28.5 g/dL (30-55); Mean Corpuscular Hemoglobin 33.3 pg (27-33); Mean Corpuscular Volume 116.8 fl (85-98); Mean Platelet Volume 10.4 fL (7.4-10.4); Monocytes % 16.1 %; Neutrophils # 3.94 10^3/uL (1.8-7.7); Neutrophils % 65.5 %; Nucleated Red Blood Cells # 0.1 /100WBC; Nucleated Red Blood Cells % 0.8 %; Platelet Count 371 10^3/cmm (157-399); Red Blood Count 3.21 10^6/uL (3.85-5.65); Red Cell Distribution Width 20.3 % (12.1-15.1); White Blood Count 6.02 10^3/uL (3.29-11.43)
[2023-07-22 09:14] LABS: Basophils % 0.4 %; Eosinophils # 0.3 10^3/uL (0.0-0.8); Eosinophils % 4.9 %; Hematocrit 36.6 % (36-47); Lymphocytes # 0.7 10^3/uL (0.8-4.8); Lymphocytes % 10.2 %; Mean Corpuscular HGB Conc 29.8 g/dL (30-55); Mean Corpuscular Hemoglobin 33.2 pg (27-33); Mean Corpuscular Volume 111.6 fl (85-98); Mean Platelet Volume 10.1 fL (7.4-10.4); Monocytes # 0.8 10^3/uL (0.2-0.9); Monocytes % 11.3 %; Neutrophils # 4.95 10^3/uL (1.8-7.7); Neutrophils % 72.9 %; Nucleated Red Blood Cells % 0 %; Platelet Count 293 10^3/cmm (157-399); Red Blood Count 3.28 10^6/uL (3.85-5.65); Red Cell Distribution Width 18.5 % (12.1-15.1); White Blood Count 6.79 10^3/uL (3.29-11.43)
== END 2023-07-25 23:59 | disposition home or self-care (01) ==
PROVIDERS: PCP Family Medicine; Visit Provider Internal Medicine Medical Oncology
DX: Z53.9 Procedure and treatment not carried out, unspecified reason (principal); D50.9 Iron deficiency anemia, unspecified
CPT/HCPCS: 36415; 85025; 96365; J1439; J7050

== ENCOUNTER 2023-07-31 11:33 | Oncology outpatient (recurring) (ONCR) | payer MEDICARE, BC, SELFPAY ==
[2023-07-31 11:58] LABS: Basophils % 0.4 %; Eosinophils # 0.3 10^3/uL (0.0-0.8); Eosinophils % 5.7 %; Hematocrit 36.9 % (36-47); Lymphocytes # 0.8 10^3/uL (0.8-4.8); Lymphocytes % 13.7 %; Mean Corpuscular HGB Conc 30.4 g/dL (30-55); Mean Corpuscular Hemoglobin 33.8 pg (27-33); Mean Corpuscular Volume 111.5 fl (85-98); Mean Platelet Volume 10.1 fL (7.4-10.4); Monocytes # 0.6 10^3/uL (0.2-0.9); Monocytes % 11.1 %; Neutrophils # 3.77 10^3/uL (1.8-7.7); Neutrophils % 68.7 %; Nucleated Red Blood Cells % 0 %; Platelet Count 326 10^3/cmm (157-399); Red Blood Count 3.31 10^6/uL (3.85-5.65); Red Cell Distribution Width 16.4 % (12.1-15.1); White Blood Count 5.48 10^3/uL (3.29-11.43)
[2023-07-31 12:26] LABS: Alanine Aminotransferase 11 U/L (0-33); Albumin Level 3.5 g/dL (3.5-5.2); Alkaline Phosphatase 67 U/L (35-105); Anion Gap 11.3 (5-19); Aspartate Amino Transferase 15 U/L (0-32); Blood Urea Nitrogen 10 mg/dL (8-23); Calcium 9.2 mg/dL (8.5-10.5); Carbon Dioxide 35 mmol/L (22-29); Chloride 100 mmol/L (98-107); Globulin 3.7 g/dL (1.3-4.6); Glomerular Filtration Rate 99.4 mL/min (90-130); Glucose 144 mg/dL (65-115); Iron 45 ug/dL (37-145); Osmolality Calculated 296 mOsm/kg (285-295); Percent Saturation 20.3 % (20-50); Potassium 4.3 mmol/L (3.5-5.1); Sodium 142 mmol/L (136-145); Total Bilirubin 0.2 mg/dL (0.15-1.2); Total Iron Binding Capacity 221 mcg/dl; Total Protein 7.2 g/dL (6.6-8.7); Unsaturated Iron Binding 176 ug/dL (112-347)
[2023-08-05 12:45] LABS: Soluble Transferrin Receptor 2.72 mg/L (0.76-1.76)
== END 2023-08-25 23:59 | disposition home or self-care (01) ==
PROVIDERS: Nurse Practitioner Family; PCP Family Medicine; Visit Provider Internal Medicine Medical Oncology
DX: D50.9 Iron deficiency anemia, unspecified; Z95.828 Presence of other vascular implants and grafts; R91.8 Other nonspecific abnormal finding of lung field; R53.83 Other fatigue; Z53.9 Procedure and treatment not carried out, unspecified reason
CPT/HCPCS: 36415; 80053; 83540; 83550; 84238; 85025; 99214

== ENCOUNTER 2023-09-16 11:38 | Oncology outpatient (recurring) (ONCR) | payer MEDICARE, BC, SELFPAY ==
[2023-08-27 14:04] LABS: Basophils % 0.2 %; Eosinophils # 0.3 10^3/uL (0.0-0.8); Eosinophils % 5.2 %; Hematocrit 33.5 % (36-47); Lymphocytes # 0.7 10^3/uL (0.8-4.8); Lymphocytes % 11.1 %; Mean Corpuscular HGB Conc 31.3 g/dL (30-55); Mean Corpuscular Hemoglobin 33.9 pg (27-33); Mean Corpuscular Volume 108.1 fl (85-98); Mean Platelet Volume 9.8 fL (7.4-10.4); Monocytes # 0.7 10^3/uL (0.2-0.9); Monocytes % 10.9 %; Neutrophils # 4.42 10^3/uL (1.8-7.7); Neutrophils % 72.3 %; Nucleated Red Blood Cells % 0 %; Platelet Count 251 10^3/cmm (157-399); Red Cell Distribution Width 14.6 % (12.1-15.1); White Blood Count 6.12 10^3/uL (3.29-11.43)
[2023-08-27 14:18] LABS: Alanine Aminotransferase 9 U/L (0-33); Albumin Level 3.7 g/dL (3.5-5.2); Alkaline Phosphatase 66 U/L (35-105); Anion Gap 9.3 (5-19); Aspartate Amino Transferase 14 U/L (0-32); Blood Urea Nitrogen 14 mg/dL (8-23); Calcium 9.5 mg/dL (8.5-10.5); Carbon Dioxide 33 mmol/L (22-29); Chloride 104 mmol/L (98-107); Globulin 3.2 g/dL (1.3-4.6); Glomerular Filtration Rate 99.4 mL/min (90-130); Glucose 147 mg/dL (65-115); Iron 42 ug/dL (37-145); Osmolality Calculated 297 mOsm/kg (285-295); Potassium 4.3 mmol/L (3.5-5.1); Sodium 142 mmol/L (136-145); Total Bilirubin 0.3 mg/dL (0.15-1.2); Total Iron Binding Capacity 262 mcg/dl; Total Protein 6.9 g/dL (6.6-8.7); Unsaturated Iron Binding 220 ug/dL (112-347)
[2023-08-27] MEDS: ferric carboxy (IVPB) 750 MG in sodium chloride 0.9% (100 ml) 100 ML 345 MG IV (16:15)
[2023-08-27 16:47] VITALS: BP 141/85; PULSE 91; RESP 17; TEMP 35.8; O2SAT 95
[2023-09-16] MEDS: ferric carboxy (IVPB) 750 MG in sodium chloride 0.9% (100 ml) 100 ML 345 MG IV (12:02)
[2023-09-16 12:09] VITALS: BP 158/88; PULSE 90; RESP 16; TEMP 36.3; O2SAT 92
== END 2023-09-24 23:59 | disposition home or self-care (01) ==
PROVIDERS: Nurse Practitioner Family; PCP Family Medicine; Visit Provider Internal Medicine Medical Oncology
DX: Z53.9 Procedure and treatment not carried out, unspecified reason (principal); D50.9 Iron deficiency anemia, unspecified
CPT/HCPCS: 36415; 80053; 83540; 83550; 85025; 96365; 99214; J1439

== ENCOUNTER 2023-10-03 11:58 | Oncology outpatient (recurring) (ONCR) | payer MEDICARE, BC, SELFPAY ==
[2023-10-03 12:40] LABS: Basophils % 0.2 %; Eosinophils # 0.1 10^3/uL (0.0-0.8); Eosinophils % 2.5 %; Hematocrit 39.2 % (36-47); Lymphocytes # 0.5 10^3/uL (0.8-4.8); Lymphocytes % 8.7 %; Mean Corpuscular HGB Conc 31.9 g/dL (30-55); Mean Corpuscular Hemoglobin 33.8 pg (27-33); Mean Corpuscular Volume 105.9 fl (85-98); Mean Platelet Volume 9.4 fL (7.4-10.4); Monocytes # 0.6 10^3/uL (0.2-0.9); Monocytes % 11.2 %; Neutrophils # 4.36 10^3/uL (1.8-7.7); Neutrophils % 77.2 %; Nucleated Red Blood Cells % 0 %; Platelet Count 306 10^3/cmm (157-399); Red Cell Distribution Width 13.6 % (12.1-15.1); White Blood Count 5.64 10^3/uL (3.29-11.43)
[2023-10-03 12:59] LABS: Alanine Aminotransferase 17 U/L (0-33); Albumin Level 3.6 g/dL (3.5-5.2); Alkaline Phosphatase 99 U/L (35-105); Anion Gap 13.7 (5-19); Aspartate Amino Transferase 21 U/L (0-32); Blood Urea Nitrogen 14 mg/dL (8-23); Calcium 8.7 mg/dL (8.5-10.5); Carbon Dioxide 28 mmol/L (22-29); Chloride 106 mmol/L (98-107); Ferritin 622 ng/mL (15-150); Globulin 3.7 g/dL (1.3-4.6); Glomerular Filtration Rate 83.2 mL/min (90-130); Glucose 112 mg/dL (65-115); Iron 95 ug/dL (37-145); Osmolality Calculated 297 mOsm/kg (285-295); Percent Saturation 44.8 % (20-50); Potassium 4.7 mmol/L (3.5-5.1); Sodium 143 mmol/L (136-145); Total Bilirubin 0.4 mg/dL (0.15-1.2); Total Iron Binding Capacity 212 mcg/dl; Total Protein 7.3 g/dL (6.6-8.7); Unsaturated Iron Binding 117 ug/dL (112-347)
== END 2023-10-25 23:59 | disposition home or self-care (01) ==
PROVIDERS: PCP Family Medicine; Visit Provider Internal Medicine Medical Oncology
DX: R91.8 Other nonspecific abnormal finding of lung field; Z79.899 Other long term (current) drug therapy; D50.8 Other iron deficiency anemias
CPT/HCPCS: 36415; 80053; 82728; 83540; 83550; 85025; 99214

== ENCOUNTER 2023-12-04 13:22 | Oncology outpatient (recurring) (ONCR) | payer MEDICARE, BC, SELFPAY ==
[2023-12-04 13:59] LABS: Basophils % 0.3 %; Eosinophils # 0.2 10^3/uL (0.0-0.8); Eosinophils % 2.8 %; Hematocrit 39.5 % (36-47); Lymphocytes # 0.8 10^3/uL (0.8-4.8); Lymphocytes % 11.2 %; Mean Corpuscular HGB Conc 30.9 g/dL (30-55); Mean Corpuscular Hemoglobin 32.8 pg (27-33); Mean Corpuscular Volume 106.2 fl (85-98); Mean Platelet Volume 10.5 fL (7.4-10.4); Monocytes # 0.9 10^3/uL (0.2-0.9); Monocytes % 13.8 %; Neutrophils # 4.84 10^3/uL (1.8-7.7); Neutrophils % 71.6 %; Nucleated Red Blood Cells % 0 %; Platelet Count 335 10^3/cmm (157-399); Red Blood Count 3.72 10^6/uL (3.85-5.65); Red Cell Distribution Width 14.2 % (12.1-15.1); White Blood Count 6.76 10^3/uL (3.29-11.43)
[2023-12-04 14:17] LABS: Alanine Aminotransferase 12 U/L (0-33); Albumin Level 3.8 g/dL (3.5-5.2); Alkaline Phosphatase 88 U/L (35-105); Anion Gap 10.2 (5-19); Aspartate Amino Transferase 13 U/L (0-32); Carbon Dioxide 31 mmol/L (22-29); Chloride 100 mmol/L (98-107); Ferritin 259 ng/mL (15-150); Globulin 3.7 g/dL (1.3-4.6); Glomerular Filtration Rate 99.4 mL/min (90-130); Glucose 94 mg/dL (65-115); Iron 56 ug/dL (37-145); Percent Saturation 21.6 % (20-50); Potassium 4.2 mmol/L (3.5-5.1); Sodium 137 mmol/L (136-145); Total Bilirubin 0.3 mg/dL (0.15-1.2); Total Iron Binding Capacity 259 mcg/dl; Total Protein 7.5 g/dL (6.6-8.7); Unsaturated Iron Binding 203 ug/dL (112-347)
[2023-12-04 14:44] LABS: Blood Urea Nitrogen 11 mg/dL (8-23); Calcium 9.6 mg/dL (8.5-10.5); Osmolality Calculated 283 mOsm/kg (285-295)
== END 2023-12-25 23:59 | disposition home or self-care (01) ==
PROVIDERS: Nurse Practitioner Family; PCP Family Medicine; Visit Provider Internal Medicine Medical Oncology
DX: D50.8 Other iron deficiency anemias (principal); R91.8 Other nonspecific abnormal finding of lung field; Z79.899 Other long term (current) drug therapy
CPT/HCPCS: 36415; 80053; 82728; 83540; 83550; 85025; 99214

== ENCOUNTER 2024-01-14 11:44 | Oncology outpatient (recurring) (ONCR) | payer MEDICARE, BC, SELFPAY ==
[2024-01-14 12:42] LABS: Basophils % 0.3 %; Eosinophils # 0.2 10^3/uL (0.0-0.8); Eosinophils % 2.3 %; Hematocrit 36.2 % (36-47); Lymphocytes # 0.5 10^3/uL (0.8-4.8); Lymphocytes % 7.3 %; Mean Corpuscular HGB Conc 30.7 g/dL (30-55); Mean Corpuscular Hemoglobin 32.4 pg (27-33); Mean Corpuscular Volume 105.5 fl (85-98); Mean Platelet Volume 10.4 fL (7.4-10.4); Monocytes % 13.3 %; Neutrophils # 5.52 10^3/uL (1.8-7.7); Neutrophils % 76.2 %; Nucleated Red Blood Cells % 0 %; Platelet Count 357 10^3/cmm (157-399); Red Blood Count 3.43 10^6/uL (3.85-5.65); Red Cell Distribution Width 14.4 % (12.1-15.1); White Blood Count 7.24 10^3/uL (3.29-11.43)
[2024-01-14 12:55] LABS: Alanine Aminotransferase 13 U/L (0-33); Albumin Level 3.6 g/dL (3.5-5.2); Alkaline Phosphatase 86 U/L (35-105); Aspartate Amino Transferase 14 U/L (0-32); Blood Urea Nitrogen 12 mg/dL (8-23); Calcium 9.2 mg/dL (8.5-10.5); Carbon Dioxide 34 mmol/L (22-29); Chloride 102 mmol/L (98-107); Ferritin 177 ng/mL (15-150); Globulin 3.5 g/dL (1.3-4.6); Glomerular Filtration Rate 99.4 mL/min (90-130); Glucose 113 mg/dL (65-115); Iron 30 ug/dL (37-145); Osmolality Calculated 297 mOsm/kg (285-295); Percent Saturation 11.1 % (20-50); Sodium 143 mmol/L (136-145); Total Bilirubin 0.2 mg/dL (0.15-1.2); Total Iron Binding Capacity 270 mcg/dl; Total Protein 7.1 g/dL (6.6-8.7); Unsaturated Iron Binding 240 ug/dL (112-347)
== END 2024-01-30 09:14 | disposition home or self-care (01) ==
LOC: ONCMED 11:45
PROVIDERS: Nurse Practitioner Family; PCP Family Medicine; Visit Provider Internal Medicine Medical Oncology
DX: D50.8 Other iron deficiency anemias (principal); R91.8 Other nonspecific abnormal finding of lung field; Z79.899 Other long term (current) drug therapy
CPT/HCPCS: 36415; 80053; 82728; 83540; 83550; 85025

== ENCOUNTER 2024-02-26 13:18 | Oncology outpatient (recurring) (ONCR) | payer MEDICARE, BC, SELFPAY ==
[2024-02-26 14:04] LABS: Basophils % 0.1 %; Eosinophils # 0.2 10^3/uL (0.0-0.8); Eosinophils % 2.3 %; Hematocrit 38.3 % (36-47); Lymphocytes # 0.6 10^3/uL (0.8-4.8); Lymphocytes % 7.5 %; Mean Corpuscular HGB Conc 31.6 g/dL (30-55); Mean Corpuscular Hemoglobin 31.3 pg (27-33); Mean Corpuscular Volume 99.2 fl (85-98); Mean Platelet Volume 11.2 fL (7.4-10.4); Monocytes # 0.8 10^3/uL (0.2-0.9); Monocytes % 9.7 %; Neutrophils # 6.61 10^3/uL (1.8-7.7); Nucleated Red Blood Cells % 0 %; Platelet Count 363 10^3/cmm (157-399); Red Blood Count 3.86 10^6/uL (3.85-5.65); Red Cell Distribution Width 14.5 % (12.1-15.1); White Blood Count 8.26 10^3/uL (3.29-11.43)
[2024-02-26 14:56] LABS: Alanine Aminotransferase 16 U/L (0-33); Albumin Level 3.6 g/dL (3.5-5.2); Alkaline Phosphatase 92 U/L (35-105); Anion Gap 9.1 (5-19); Aspartate Amino Transferase 15 U/L (0-32); Blood Urea Nitrogen 8 mg/dL (8-23); Carbon Dioxide 32 mmol/L (22-29); Chloride 102 mmol/L (98-107); Ferritin 100 ng/mL (15-150); Globulin 3.8 g/dL (1.3-4.6); Glomerular Filtration Rate 158.7 mL/min (90-130); Glucose 100 mg/dL (65-115); Iron 52 ug/dL (37-145); Osmolality Calculated 288 mOsm/kg (285-295); Percent Saturation 16.1 % (20-50); Potassium 3.1 mmol/L (3.5-5.1); Sodium 140 mmol/L (136-145); Total Bilirubin 0.4 mg/dL (0.15-1.2); Total Iron Binding Capacity 322 mcg/dl; Total Protein 7.4 g/dL (6.6-8.7); Unsaturated Iron Binding 270 ug/dL (112-347)
[2024-02-26] MEDS: ferric carboxy (PYXIS) 750 MG in sodium chloride 0.9% (100 ml) 100 ML 345 MG IV (15:48)
[2024-02-26] MEDS: sodium chloride 0.9% 250 ML 345 ML IV (15:48)
[2024-02-26 16:22] VITALS: BP 204/87; PULSE 86; RESP 17; TEMP 36.5; O2SAT 93
[2024-03-04 07:14] LABS: Soluble Transferrin Receptor 1.67 mg/L (0.76-1.76)
== END 2024-03-26 23:59 | disposition home or self-care (01) ==
PROVIDERS: Nurse Practitioner Family; PCP Family Medicine; Visit Provider Internal Medicine Medical Oncology
DX: D50.8 Other iron deficiency anemias (principal); R91.8 Other nonspecific abnormal finding of lung field; Z79.899 Other long term (current) drug therapy; D64.9 Anemia, unspecified
CPT/HCPCS: 36415; 80053; 82728; 83540; 83550; 84238; 85025; 96365; 99214; J1439; J7050

== ENCOUNTER 2024-05-06 13:43 | Oncology outpatient (recurring) (ONCR) | payer MEDICARE, OTHER, SELFPAY ==
[2024-05-06 14:05] VITALS: BP 189/85; PULSE 82; RESP 18; TEMP 36.6; O2SAT 98
[2024-05-06 14:27] LABS: Basophils % 0.4 %; Eosinophils # 0.3 10^3/uL (0.0-0.8); Eosinophils % 3.6 %; Hematocrit 39.5 % (36-47); Lymphocytes # 0.8 10^3/uL (0.8-4.8); Mean Corpuscular HGB Conc 32.2 g/dL (30-55); Mean Corpuscular Hemoglobin 32.4 pg (27-33); Mean Corpuscular Volume 100.8 fl (85-98); Mean Platelet Volume 10.5 fL (7.4-10.4); Monocytes # 0.9 10^3/uL (0.2-0.9); Monocytes % 10.9 %; Neutrophils # 6.25 10^3/uL (1.8-7.7); Neutrophils % 75.4 %; Nucleated Red Blood Cells % 0 %; Platelet Count 337 10^3/cmm (157-399); Red Blood Count 3.92 10^6/uL (3.85-5.65); Red Cell Distribution Width 16.6 % (12.1-15.1); White Blood Count 8.29 10^3/uL (3.29-11.43)
[2024-05-06 15:10] LABS: Alanine Aminotransferase 13 U/L (0-33); Albumin Level 3.7 g/dL (3.5-5.2); Alkaline Phosphatase 102 U/L (35-105); Anion Gap 12.9 (5-19); Aspartate Amino Transferase 14 U/L (0-32); Blood Urea Nitrogen 11 mg/dL (8-23); Calcium 9.7 mg/dL (8.5-10.5); Carbon Dioxide 27 mmol/L (22-29); Chloride 102 mmol/L (98-107); Creatinine Clr Calc Pharmacy 76.2086; Ferritin 296 ng/mL (15-150); Glomerular Filtration Rate 122.3 mL/min (90-130); Glucose 86 mg/dL (65-115); Iron 68 ug/dL (37-145); Osmolality Calculated 285 mOsm/kg (285-295); Percent Saturation 24.6 % (20-50); Potassium 3.9 mmol/L (3.5-5.1); Sodium 138 mmol/L (136-145); Total Bilirubin 0.4 mg/dL (0.15-1.2); Total Iron Binding Capacity 276 mcg/dl; Total Protein 7.7 g/dL (6.6-8.7); Unsaturated Iron Binding 208 ug/dL (112-347)
== END 2024-05-26 23:59 | disposition home or self-care (01) ==
PROVIDERS: Nurse Practitioner Family; PCP Family Medicine; Visit Provider Internal Medicine Medical Oncology
DX: D50.8 Other iron deficiency anemias (principal); Z79.899 Other long term (current) drug therapy
CPT/HCPCS: 36415; 80053; 82728; 83540; 83550; 85025; 99214

== ENCOUNTER 2024-08-03 08:31 | Oncology outpatient (recurring) (ONCR) | payer MEDICARE, OTHER, SELFPAY ==
[2024-07-28 12:51] LABS: Basophils % 0.2 %; Eosinophils # 0.3 10^3/uL (0.0-0.8); Eosinophils % 3.5 %; Lymphocytes # 0.6 10^3/uL (0.8-4.8); Lymphocytes % 5.9 %; Mean Corpuscular HGB Conc 30.8 g/dL (30-55); Mean Corpuscular Volume 103.9 fl (85-98); Mean Platelet Volume 10.5 fL (7.4-10.4); Monocytes % 10.2 %; Neutrophils # 7.39 10^3/uL (1.8-7.7); Neutrophils % 79.8 %; Nucleated Red Blood Cells % 0 %; Platelet Count 384 10^3/cmm (157-399); Red Blood Count 3.56 10^6/uL (3.85-5.65); Red Cell Distribution Width 14.7 % (12.1-15.1); White Blood Count 9.27 10^3/uL (3.29-11.43)
[2024-07-28 13:10] LABS: Alanine Aminotransferase 9 U/L (0-33); Albumin Level 3.6 g/dL (3.5-5.2); Alkaline Phosphatase 83 U/L (35-105); Aspartate Amino Transferase 13 U/L (0-32); Blood Urea Nitrogen 11 mg/dL (8-23); Carbon Dioxide 28 mmol/L (22-29); Chloride 101 mmol/L (98-107); Ferritin 219 ng/mL (15-150); Globulin 3.4 g/dL (1.3-4.6); Glomerular Filtration Rate 99.1 mL/min (90-130); Glucose 124 mg/dL (65-115); Iron 37 ug/dL (37-145); Osmolality Calculated 283 mOsm/kg (285-295); Percent Saturation 13.4 % (20-50); Sodium 136 mmol/L (136-145); Total Bilirubin 0.2 mg/dL (0.15-1.2); Total Iron Binding Capacity 276 mcg/dl; Unsaturated Iron Binding 239 ug/dL (112-347)
[2024-07-28 13:24] LABS: Vitamin B12 343 pg/mL (232-1245)
[2024-08-03] MEDS: ferric derisomaltose 1,000 MG in sodium chloride 0.9% (100 ml) 100 ML 330 MG IV (09:15)
[2024-08-03 10:09] VITALS: BP 180/76; PULSE 74; RESP 17; TEMP 36.5; O2SAT 86
== END 2024-08-24 23:59 | disposition home or self-care (01) ==
PROVIDERS: Nurse Practitioner; PCP Family Medicine; Visit Provider Internal Medicine
DX: Z53.9 Procedure and treatment not carried out, unspecified reason; D50.9 Iron deficiency anemia, unspecified; Z79.899 Other long term (current) drug therapy
CPT/HCPCS: 36415; 80053; 82607; 82728; 83540; 83550; 85025; 96365; 99213; J1437

== ENCOUNTER 2024-11-05 13:08 | Oncology outpatient (recurring) (ONCR) | payer MEDICARE, OTHER, SELFPAY ==
[2024-11-05 13:44] LABS: Basophils % 0.4 %; Eosinophils # 0.2 10^3/uL (0.0-0.8); Eosinophils % 3.2 %; Hematocrit 40.6 % (36-47); Lymphocytes # 0.5 10^3/uL (0.8-4.8); Lymphocytes % 7.8 %; Mean Corpuscular HGB Conc 31.8 g/dL (30-55); Mean Corpuscular Hemoglobin 32.6 pg (27-33); Mean Corpuscular Volume 102.5 fl (85-98); Mean Platelet Volume 10.6 fL (7.4-10.4); Monocytes % 14.3 %; Neutrophils # 5.14 10^3/uL (1.8-7.7); Nucleated Red Blood Cells % 0 %; Platelet Count 353 10^3/cmm (157-399); Red Blood Count 3.96 10^6/uL (3.85-5.65); White Blood Count 6.94 10^3/uL (3.29-11.43)
[2024-11-05 13:56] LABS: Alanine Aminotransferase 14 U/L (0-33); Albumin Level 3.5 g/dL (3.5-5.2); Alkaline Phosphatase 91 U/L (35-105); Anion Gap 14.7 (5-19); Aspartate Amino Transferase 16 U/L (0-32); Blood Urea Nitrogen 8 mg/dL (8-23); Calcium 8.8 mg/dL (8.5-10.5); Carbon Dioxide 28 mmol/L (22-29); Chloride 103 mmol/L (98-107); Globulin 3.3 g/dL (1.3-4.6); Glomerular Filtration Rate 99.1 mL/min (90-130); Glucose 106 mg/dL (65-115); Osmolality Calculated 293 mOsm/kg (285-295); Potassium 3.7 mmol/L (3.5-5.1); Sodium 142 mmol/L (136-145); Total Bilirubin 0.3 mg/dL (0.15-1.2); Total Protein 6.8 g/dL (6.6-8.7)
[2024-11-05 14:22] LABS: Ferritin 361 ng/mL (15-150); Iron 59 ug/dL (37-145); Percent Saturation 24.8 % (20-50); Total Iron Binding Capacity 237 mcg/dl; Unsaturated Iron Binding 178 ug/dL (112-347)
== END 2024-11-23 23:59 | disposition home or self-care (01) ==
PROVIDERS: PCP Family Medicine; Visit Provider Internal Medicine
DX: D50.8 Other iron deficiency anemias (principal); Z79.01 Long term (current) use of anticoagulants; J18.9 Pneumonia, unspecified organism; Z79.899 Other long term (current) drug therapy
CPT/HCPCS: 36415; 80053; 82728; 83540; 83550; 85025; 99213

== ENCOUNTER 2025-03-04 10:45 | Oncology outpatient (recurring) (ONCR) | payer MEDICARE, OTHER, SELFPAY ==
[2025-03-04 11:50] LABS: Hematocrit 42.9 % (36-47); Hemoglobin 13.90 g/dL (11.27-16.99); Mean Corpuscular HGB Conc 32.4 g/dL (30-55); Mean Corpuscular Hemoglobin 33.7 pg (27-33); Mean Corpuscular Volume 103.9 fl (85-98); Nucleated Red Blood Cells % 0 %; Platelet Count 314 10^3/cmm (157-399); Red Blood Count 4.13 10^6/uL (3.85-5.65); White Blood Count 5.70 10^3/uL (3.29-11.43)
[2025-03-04 12:35] LABS: Alanine Aminotransferase 30 U/L (0-33); Albumin Level 3.9 g/dL (3.5-5.2); Alkaline Phosphatase 81 U/L (35-105); Anion Gap 13.7 (5-19); Aspartate Amino Transferase 31 U/L (0-32); Blood Urea Nitrogen 13 mg/dL (8-23); Calcium 9.4 mg/dL (8.5-10.5); Carbon Dioxide 26 mmol/L (22-29); Chloride 105 mmol/L (98-107); Ferritin 291 ng/mL (15-150); Globulin 3.7 g/dL (1.3-4.6); Glucose 92 mg/dL (65-115); Iron 76 ug/dL (37-145); Osmolality Calculated 290 mOsm/kg (285-295); Potassium 4.7 mmol/L (3.5-5.1); Sodium 140 mmol/L (136-145); Total Iron Binding Capacity 268 mcg/dl; Total Protein 7.6 g/dL (6.6-8.7); Unsaturated Iron Binding 192 ug/dL (112-347); Vitamin B12 525 pg/mL (232-1245)
== END 2025-03-26 23:59 | disposition home or self-care (01) ==
PROVIDERS: PCP Family Medicine; Visit Provider Internal Medicine
DX: D50.8 Other iron deficiency anemias (principal); I48.91 Unspecified atrial fibrillation; Z79.899 Other long term (current) drug therapy
CPT/HCPCS: 36415; 80053; 82607; 82728; 82746; 83010; 83540; 83550; 83615; 85025; 85045; 99215